=== PATIENT | female | born 1940 | race Caucasian/White ===

== ENCOUNTER → 2016-02-18 | Outpatient (CLI) | payer OTHER ==
[~2016-02-18] MED LIST: ACET325T96 PO; ATOR10TA88 PO; CHOL20005 PO; DONE5TAB14 PO; FLUO20CA34 PO; LORA-741 PO; METF500T PO; MIRT30TA3 PO; MRP15 PO; MULT-262 PO; TOPI100T45 PO; [UNRECOGNIZED DRUG - OTHER] PO
[2016-02-18 09:20] LABS: ESTIMATED AVERAGE GLUCOSE 120 mg/dl; HA1C FLAG Normal (Normal)
== END ==
LOC: C.LABUPBEA 08:42
PROVIDERS: ATTEND Family Medicine
DX: E11.9 Type 2 diabetes mellitus without complications (principal)

== ENCOUNTER → 2016-04-15 | Outpatient (CLI) | payer OTHER ==
[2016-04-15 10:17] LABS: CHOLESTEROL/HDL RATIO 2.6
== END | disposition home or self-care (01) ==
LOC: C.LABUPBEA 09:44
PROVIDERS: ATTEND Family Medicine
DX: E78.5 Hyperlipidemia, unspecified (principal)

== ENCOUNTER → 2016-04-16 | Outpatient (CLI) | payer OTHER ==
[2016-04-16 09:48] LABS: HEMATOCRIT 39.5 % (37-47); MEAN CORPUSCULAR HEMOGLOBIN 27.6 pg (25-34); MEAN CORPUSCULAR HGB CONC 31.4 g/dl (32-36); MEAN PLATELET VOLUME 10.2 fL (7.4-10.4); PLATELET COUNT 237 K/uL (130-400); RED BLOOD COUNT 4.49 M/uL (4.2-5.4); WHITE BLOOD COUNT 7.16 K/uL (4.8-10.8)
[2016-04-16 09:57] LABS: BLOOD UREA NITROGEN 14 mg/dl (7-18); CREATININE 0.76 mg/dl (0.60-1.20); GLUCOSE 113 mg/dl (70-99)
[2016-04-16 09:58] LABS: ALT/SGPT 16 U/L (12-78); BUN/CREATININE RATIO 18.4 (10-20); CALCIUM 8.7 mg/dl (8.5-10.1); CARBON DIOXIDE 23 mmol/L (21-32); CHLORIDE 104 mmol/L (98-107); CHOLESTEROL 107 mg/dl (0-200); POTASSIUM 3.3 mmol/L (3.5-5.1); SODIUM 142 mmol/L (136-145); TRIGLYCERIDES 150 mg/dl (0-150); VERY LOW DENSITY LIPOPROT CALC 30 mg/dl
[2016-04-16 10:01] LABS: ALKALINE PHOSPHATASE 111 U/L (45-117); AST/SGOT 11 U/L (15-37); CHOLESTEROL/HDL RATIO 2.5; HDL CHOLESTEROL 43 mg/dl; LDL CHOLESTEROL CALCULATED 34 mg/dl
== END ==
LOC: C.LABUPBEA 09:10
PROVIDERS: ATTEND Family Medicine
DX: E78.5 Hyperlipidemia, unspecified (principal)

== ENCOUNTER → 2016-05-20 | Outpatient (CLI) | payer OTHER ==
[~2016-05-20] MED LIST changes: +ATOR10TA82 PO; -ATOR10TA88 PO
[2016-05-20 11:00] LABS: ESTIMATED AVERAGE GLUCOSE 126 mg/dl; HA1C FLAG Normal (Normal)
== END ==
LOC: C.LABUPBEA 09:22
PROVIDERS: ATTEND Nurse Practitioner Family
DX: E11.9 Type 2 diabetes mellitus without complications (principal)

== ENCOUNTER → 2016-06-26 | Outpatient (CLI) | payer OTHER ==
[2016-06-26 09:13] LABS: BLOOD UREA NITROGEN 15 mg/dl (7-18); BUN/CREATININE RATIO 21.9 (10-20); CARBON DIOXIDE 27 mmol/L (21-32); CHLORIDE 103 mmol/L (98-107); CREATININE 0.68 mg/dl (0.60-1.20); GLUCOSE 95 mg/dl (70-99); POTASSIUM 3.8 mmol/L (3.5-5.1); SODIUM 139 mmol/L (136-145)
[2016-06-26 09:21] LABS: CALCIUM 8.9 mg/dl (8.5-10.1)
== END ==
LOC: C.LABUPBEA 08:56
PROVIDERS: ATTEND Nurse Practitioner Family
DX: E11.9 Type 2 diabetes mellitus without complications (principal)

== ENCOUNTER → 2016-08-20 | Outpatient (CLI) | payer OTHER ==
[~2016-08-20] MED LIST changes: -ATOR10TA82 PO; +ATOR10TA88 PO
[2016-08-20 09:55] LABS: ESTIMATED AVERAGE GLUCOSE 123 mg/dl; HA1C FLAG Normal (Normal)
--- NOTE | 2016-10-07 07:14 | CODING QUERY MEDICAL NECESSITY ---
SUPPORTING DIAGNOSIS NEEDED Dr. Bravo, A supporting diagnosis is required for the test/procedure performed on this patient in order for us to be reimbursed by the patient's insurance. Please provide a supporting diagnosis for the following test/procedure listed below next to the test name along with your signature. *If there is no additional diagnosis for this patient that would support the following test/procedure please document that below next to the test/procedure. Test(s)/Procedure(s) that require a supporting diagnosis: * ([id number]) VITAMIN D ASSAY DIAGNOSIS: DATE OF SERVICE: 08/20/16 Provider Signature: Date: Thank you Miguel Ángel Harmon [facility] Information Management Once completed, please kindly fax back to [phone] For questions please call [phone]
== END ==
LOC: C.LABUPBEA 04:45
PROVIDERS: ATTEND Family Medicine
DX: E11.9 Type 2 diabetes mellitus without complications (principal); M25.532 Pain in left wrist

== ENCOUNTER → 2016-11-20 | Outpatient (CLI) | payer OTHER | LOC: C.LABUPBEA 08:57 | PROVIDERS: ATTEND Nurse Practitioner Family | DX: E11.9 Type 2 diabetes mellitus without complications (principal); E55.9 Vitamin D deficiency, unspecified ==

== ENCOUNTER → 2016-12-11 | Outpatient (CLI) | payer OTHER ==
[~2016-12-11] MED LIST changes: +ATOR10TA82 PO; -ATOR10TA88 PO
[2016-12-11 15:36] LABS: BASO % 0.6 %; BASO ABS # 0.04 K/uL (0-0.2); HEMATOCRIT 39.1 % (37-47); IG% 0.1 %; LYMPH % 21.5 %; LYMPH ABS # 1.45 K/uL (1.2-3.4); MEAN CELL VOLUME 89.1 fL (80-100); MEAN CORPUSCULAR HEMOGLOBIN 29.2 pg (25-34); MEAN PLATELET VOLUME 9.8 fL (7.4-10.4); MONO % 11.3 %; NEUT % 61.5 %; PLATELET COUNT 255 K/uL (130-400); RED BLOOD COUNT 4.39 M/uL (4.2-5.4); WHITE BLOOD COUNT 6.75 K/uL (4.8-10.8)
[2016-12-11 15:57] LABS: BLOOD UREA NITROGEN 24 mg/dl (7-18); CREATININE 0.79 mg/dl (0.60-1.20); GLUCOSE 95 mg/dl (70-99)
[2016-12-11 15:58] LABS: ALB/GLOB RATIO 0.9 (0.9-2); ALKALINE PHOSPHATASE 118 U/L (45-117); ALT/SGPT 15 U/L (12-78); AST/SGOT 7 U/L (15-37); CALCIUM 8.8 mg/dl (8.5-10.1); CARBON DIOXIDE 25 mmol/L (21-32); CHLORIDE 104 mmol/L (98-107); POTASSIUM 3.9 mmol/L (3.5-5.1); SODIUM 137 mmol/L (136-145)
[2016-12-11 16:00] LABS: COMPLETE YES; MEAN CORPUSCULAR HGB CONC 32.7 g/dl (32-36)
== END | disposition home or self-care (01) ==
LOC: C.LABUPBEA 15:22
PROVIDERS: ATTEND Nurse Practitioner Family
DX: F03.90 Unspecified dementia, unspecified severity, without behavioral disturbance, psychotic disturbance, mood disturbance, and anxiety (principal); E11.9 Type 2 diabetes mellitus without complications; F41.9 Anxiety disorder, unspecified; F32.9 Major depressive disorder, single episode, unspecified; G43.909 Migraine, unspecified, not intractable, without status migrainosus; G89.29 Other chronic pain

== ENCOUNTER → 2016-12-26 | Outpatient (CLI) | payer OTHER ==
[2016-12-26 10:06] LABS: BLOOD UREA NITROGEN 23 mg/dl (7-18); BUN/CREATININE RATIO 26.7 (10-20); CALCIUM 8.3 mg/dl (8.5-10.1); CARBON DIOXIDE 25 mmol/L (21-32); CHLORIDE 103 mmol/L (98-107); CREATININE 0.88 mg/dl (0.60-1.20); GLUCOSE 124 mg/dl (70-99); POTASSIUM 3.6 mmol/L (3.5-5.1); SODIUM 135 mmol/L (136-145)
== END | disposition home or self-care (01) ==
LOC: C.LABUPBEA 09:16
PROVIDERS: ATTEND Nurse Practitioner Family
DX: F41.1 Generalized anxiety disorder (principal)

== ENCOUNTER → 2017-02-20 | Outpatient (CLI) | payer OTHER ==
[~2017-02-20] MED LIST changes: +ACET-1693 PO; -ACET325T96 PO
[2017-02-20 08:58] LABS: HEMOGLOBIN A1C 5.7 % (4.5-5.6)
== END ==
LOC: C.LABUPHEI 08:36
PROVIDERS: ATTEND Nurse Practitioner Family
DX: E11.9 Type 2 diabetes mellitus without complications (principal)

== ENCOUNTER → 2017-05-21 | Outpatient (CLI) | payer OTHER ==
[2017-05-21 09:55] LABS: HEMOGLOBIN A1C 5.9 % (4.5-5.6)
== END ==
LOC: C.LABUPHEI 07:51
PROVIDERS: ATTEND Nurse Practitioner Family
DX: E11.9 Type 2 diabetes mellitus without complications (principal)

== ENCOUNTER → 2017-06-25 | Outpatient (CLI) | payer OTHER ==
[2017-06-25 09:55] LABS: BLOOD UREA NITROGEN 19 mg/dl (7-18); CALCIUM 8.5 mg/dl (8.5-10.1); CARBON DIOXIDE 28 mmol/L (21-32); GLUCOSE 120 mg/dl (70-99); POTASSIUM 3.8 mmol/L (3.5-5.1); SODIUM 139 mmol/L (136-145)
== END ==
LOC: C.LABUPHEI 09:01
PROVIDERS: ATTEND Nurse Practitioner Family
DX: E11.9 Type 2 diabetes mellitus without complications (principal)

== ENCOUNTER → 2017-09-25 | Outpatient (CLI) | payer OTHER ==
[2017-09-25 09:00] LABS: BASO % 0.5 %; BASO ABS # 0.04 K/uL (0-0.2); EOS % 5.8 %; EOS ABS # 0.43 K/uL (0-0.5); HEMATOCRIT 42.3 % (37-47); HEMOGLOBIN 12.9 g/dL (12.0-16.0); IG# 0.02 K/uL (0.00-0.02); LYMPH % 21.8 %; LYMPH ABS # 1.62 K/uL (1.2-3.4); MEAN CELL VOLUME 87.8 fL (80-100); MEAN CORPUSCULAR HEMOGLOBIN 26.8 pg (25-34); MEAN CORPUSCULAR HGB CONC 30.5 g/dl (32-36); MEAN PLATELET VOLUME 10.6 fL (7.4-10.4); MONO % 11.9 %; MONO ABS # 0.88 K/uL (0.11-0.59); NEUT % 59.7 %; NEUT ABS # 4.43 K/uL (1.4-6.5); PLATELET COUNT 236 K/uL (130-400); RED CELL DISTRIBUTION WIDTH CV 15.6 % (11.5-14.5); RED CELL DISTRIBUTION WIDTH SD 49.9 fL (36.4-46.3); WHITE BLOOD COUNT 7.42 K/uL (4.8-10.8)
== END ==
LOC: C.LABUPHEI 08:34
PROVIDERS: ATTEND Nurse Practitioner Family
DX: R30.0 Dysuria (principal); E11.9 Type 2 diabetes mellitus without complications

== ENCOUNTER 2023-11-24 23:46 | Inpatient (IN) ==
--- NOTE | 2023-11-25 00:02 | Emergency Department Note ---
Impression & Plan Acute hypoxic respiratory failure, Multifocal pneumonia ED Provider Note NAME: LUCA GARCIA AGE: 83 SEX: F : 1940 ARRIVES VIA: Ambulance INFORMANT: Patient, EMS ED PROVIDER(S): Austyn Harris DO CHIEF COMPLAINT: Respiratory distress HPI: Patient is an 83-year-old female with a past medical history of aggressive behavior, psychosis, mood disorder and UTI who presents to the ER for respiratory distress. Per [facility] [place] side she has been having trouble breathing all day. Gradually getting worse. She cannot talk now. She is pleasantly demented. She notes she is a full code. Unable to obtain a history due to respiratory distress ADDITIONAL HISTORY OBTAINED: Per HPI Chronic Medical/Social Conditions Affecting Care: Per HPI PAST MEDICAL HISTORY:See Below PAST SURGICAL HISTORY:See Below FAMILY HISTORY:See Below SOCIAL HISTORY:See Below HOME MEDICATIONS:See Below ALLERGIES:See Below VITALS:See Below PHYSICAL EXAMINATION: GENERAL: Sitting up in bed, alert, tachypneic, unable to talk, on nonrebreather EYE EXAM: normal conjunctiva. OROPHARYNX: Dry mucous membranes NECK: supple, no nuchal rigidity, no adenopathy, non-tender LUNGS: Wheezing bilaterally. Normal chest wall mechanics HEART: no murmurs, S1 normal and S2 normal ABDOMEN: abdomen soft, non-tender, normo-active bowel sounds, no masses, no rebound or guarding. UPPER EXTREMITIES: upper extremities are grossly normal. LOWER EXTREMITIES: No pitting edema. Calves are equal bilaterally NEURO EXAM: Awake alert moving extremities nonfocal MEDICAL DECISION MAKING: Patient is an 83-year-old female who presents ER for the above-stated complaint. IV was established medicos obtained. Upon presentation she was found to be tachypneic and unable to talk using accessory muscles including neck and belly. She was transitioned from nonrebreather to BiPAP with little improvement and consequently the decision was made to intubate after I spoke with Viridiana from [facility] who notes that the patient is a full code. Initially patient was given Rocephin and this was upgraded to cefepime once the chest x-ray was obtained and showed multifocal pneumonia as patient is from [facility] side. Patient was also given vancomycin. Patient was intubated at bedside by myself using a 7 and half ET tube and glide scope. Placed on a propofol drip. Pressures dropped and propofol drip was decreased and pressures rebounded. This occurred several times. Patient was given IV fluids. Updated bedside. Discussed with the pc support specialist Joan and the hospitalist Dr. Jayro Brennan for further evaluation management treatment. Consults/Care Managements Discussions: Per [facility] Triage Nursing notes reviewed. Limited review of prior medical records performed Vital Signs: reviewed and remarkable for no significant abnormalities Differential diagnosis: Differential diagnoses includes but is not limited to pneumonia, bronchitis, COPD/Asthma exacerbation, pneumothorax, pulmonary embolism, congestive heart failure, acute coronary syndrome ER treatment provided: See below Diagnostics interpreted by me include EKG and cardiac monitoring as listed below: -Cardiac Monitoring: An order was placed for continuous cardiac monitoring. The monitor shows a rate of 110 with sinus rhythm. -ECG: Sinus tachycardia rate of 113 Normal axis Right bundle branch block T wave inversions in the septal leads QTc 496 -Laboratory studies:Interpreted by me as stated above in MDM and shown below. Imaging studies: Xrays: As interpreted by me: Portable AP upright 1 view of the chest shows ET tube in good positioning and multifocal pneumonia CTs show: none Procedures:EM PROCEDURE NOTE - Endotracheal Intubation PROCEDURE NOTE: Informed consent was not obtained by the patient. Verify Correct Patient: yes Procedure: Endotracheal intubation Indication: Respiratory failure The procedure was done emergently. Description of the Procedure: The patient was seen and properly identified. The patient was pre-oxygenated and intubated after rapid sequence induction with meds: Succinylcholine and ketamine. Intubation was performed using a glide scope 3.5 and a 7.5 cuffed endotracheal tube. The tube was visualized going through the cords and secured with the 23 cm rober at the lips. The patient had good bilateral breath sounds in the axillae with good chest rise. Proper ET tube placement was confirmed by end tidal CO2 detector. The patient tolerated the procedure well. Critical Care: I have personally spent 125 minutes of critical care time in the direct management of this patient. This includes bedside care, interpretation of diagnostic studies, and testing, discussion with consultants, patient, and family members, and other required patient management activities. This 125 minutes is in excess of all separately billable procedures. Past Med/Surg History Problem List (Updated 11/25/23 @ 01:51 by Austyn Harris DO) Multifocal pneumonia (Acute) Acute hypoxic respiratory failure (Acute) Aggressive behavior (Acute) History of psychosis (Acute) Mood disorder (Acute) UTI (urinary tract infection) (Acute) Social History Smoking Status: Unknown if ever smoked Allergies Allergies Allergy/AdvReac Type Severity Reaction Status Date / Time thimerosal Allergy Unknown unknown Verified 11/25/23 00:06 Home Meds Home Medications Medication Instructions Recorded Confirmed acetaminophen 325 mg tablet 325 mg PO Q6 PRN PAIN 1-10 11/25/23 11/25/23 aripiprazole 2 mg tablet 2 mg PO HS 11/25/23 11/25/23 atorvastatin 10 mg tablet 10 mg PO HS 11/25/23 11/25/23 diclofenac sodium 1 % topical gel 1 g topical .DAY & EVENING SHIFT 11/25/23 11/25/23 divalproex 125 mg capsule,delayed 125 mg PO DAILY 11/25/23 11/25/23 release sprinkle menthol 0.1 % lotion (Eucerin Itch 1 ea topical BID 11/25/23 11/25/23 Relief) mirtazapine 15 mg tablet 15 mg PO HS 11/25/23 11/25/23 morphine 15 mg tablet,extended 15 mg PO BID 11/25/23 11/25/23 release multivitamin with minerals 1 tab PO DAILY 11/25/23 11/25/23 (Multiple Vitamin-Minerals tablet) naproxen sodium 220 mg tablet 220 mg PO BID PRN L SHOULDER PAIN 11/25/23 11/25/23 naproxen sodium 220 mg tablet 220 mg PO UD PRN OTHER PAIN 11/25/23 11/25/23 venlafaxine 75 mg capsule,extended 75 mg PO BID 11/25/23 11/25/23 release 24 hr Results & Data (ED) Vital Signs Vital Signs - 24 hr 11/24/23 23:51 11/24/23 23:54 11/24/23 23:56 Pulse Rate 113 H 111 H Pulse Rate from SpO2 Sensor 112 H Respiratory Rate 25 H Respiratory Effort / Characteristics Accessory Muscle Use Gasping/Agonal SOB on Exertion Respiratory Pattern Gasping Rapid/Deep Blood Pressure 174/108 H Blood Pressure Mean 130 Blood Pressure Position Pulse Oximetry 99 Oxygen Delivery Method Sepsis Recent Fever Within 48 Hours Sepsis New/Unexplained Change in Mental Status Sepsis Action Taken by Nursing End-Tidal CO2 11/24/23 23:56 11/25/23 00:02 11/25/23 00:18 Pulse Rate 115 H 117 H Pulse Rate from SpO2 Sensor 117 H Respiratory Rate 30 H Respiratory Effort / Characteristics Accessory Muscle Use Gasping/Agonal SOB on Exertion Respiratory Pattern Tachypnea Blood Pressure 174/108 H 118/83 Blood Pressure Mean 130 94 Blood Pressure Position Lying Pulse Oximetry 97 97 97 Oxygen Delivery Method BiPAP BiPAP Sepsis Recent Fever Within 48 Hours No Sepsis New/Unexplained Change in Mental Status N/A Sepsis Action Taken by Nursing Physician Notified End-Tidal CO2 11/25/23 00:24 11/25/23 00:30 11/25/23 00:36 Pulse Rate 90 Pulse Rate from SpO2 Sensor 91 H Respiratory Rate 24 Respiratory Effort / Characteristics Respiratory Pattern Blood Pressure 118/83 171/93 H 143/73 H Blood Pressure Mean 96 120 96 Blood Pressure Position Pulse Oximetry 96 Oxygen Delivery Method Sepsis Recent Fever Within 48 Hours Sepsis New/Unexplained Change in Mental Status Sepsis Action Taken by Nursing End-Tidal CO2 36 11/25/23 00:44 11/25/23 00:45 11/25/23 00:47 Pulse Rate 92 H 94 H 90 Pulse Rate from SpO2 Sensor 95 H Respiratory Rate 19 Respiratory Effort / Characteristics Respiratory Pattern Blood Pressure 72/46 L 72/46 L 105/57 L Blood Pressure Mean 52 54 82 Blood Pressure Position Pulse Oximetry 95 92 Oxygen Delivery Method Mechanical Vent Mechanical Vent Sepsis Recent Fever Within 48 Hours Sepsis New/Unexplained Change in Mental Status Sepsis Action Taken by Nursing End-Tidal CO2 37 33 11/25/23 00:50 11/25/23 01:00 Pulse Rate 90 Pulse Rate from SpO2 Sensor 89 Respiratory Rate 24 Respiratory Effort / Characteristics Respiratory Pattern Blood Pressure 106/54 L 90/61 L Blood Pressure Mean 72 70 Blood Pressure Position Pulse Oximetry 95 Oxygen Delivery Method Mechanical Vent Sepsis Recent Fever Within 48 Hours Sepsis New/Unexplained Change in Mental Status Sepsis Action Taken by Nursing End-Tidal CO2 37 Laboratory Data 11/25/23 00:16 11/25/23 00:16 Lab Results 11/25/23 11/25/23 11/25/23 Range/Units 00:16 00:19 00:23 WBC 30.21 H* (4.8-10.8) K/ul RBC 4.62 (4.20-5.40) M/uL Hgb 12.8 (12.0-16.0) g/dl POC Hgb 15.3 (12.0-16.0) g/dl Hct 41.5 (37.0-47.0) % POC Hct 45 (37-47) % MCV 89.8 (80.0-100.0) fL MCH 27.7 (25.0-34.0) pg MCHC 30.8 L (32.0-36.0) g/dL RDW Std Deviation 50.2 H (36.4-46.3) fL RDW Coeff of Louise 15.0 H (11.5-14.5) % Plt Count 342 (130-400) K/uL MPV 10.5 (9.4-12.4) fL Immature Gran % (Auto) 0.7 % Neut % (Auto) 71.0 % Lymph % (Auto) 16.9 % [place] % (Auto) 10.8 % Eos % (Auto) 0.3 % Baso % (Auto) 0.3 % Neut # (Auto) 21.48 H (1.40-6.50) K/uL Lymph # (Auto) 5.10 H (1.20-3.40) K/uL [place] # (Auto) 3.26 H (0.11-0.59) K/uL Eos # (Auto) 0.08 (0.00-0.50) K/uL Baso # (Auto) 0.08 (0.00-0.20) K/uL Immature Gran # (Auto) 0.21 H (0.01-0.20) K/uL Echinocytes 1+ POC pH (7.35-7.45) POC pCO2 (35-46) mmHg POC pO2 (80-95) mmHg POC HCO3 (19-24) jameel/L POC Base Excess (-9-1.8) jameel/L POC ABG O2 Sat (90-95) % VBG pH 7.23 L (7.36-7.41) VBG pCO2 73 H (38-50) mmHg VBG pO2 51 mmHg VBG HCO3 31 mmol/L VBG O2 Saturation 81.3 % VBG Base Excess 1.0 mEq/L POC Sodium 136 (135-144) mmol/L Sodium 136 (136-145) mmol/L POC Potassium 4.4 (3.3-5.0) mmol/L Potassium 4.3 (3.5-5.1) mmol/L POC Chloride 98 L (101-112) mmol/L Chloride 97 L (98-107) mmol/L Carbon Dioxide 30 (21-32) mmol/L POC Total CO2 31 (24-31) mmol/L Anion Gap 9 (3-11) POC Anion Gap 12.0 L (16-25) mmol/L POC BUN 23 H (7-18) mg/dl BUN 19 (6-23) mg/dl Creatinine 0.59 L (0.6-1.2) mg/dl POC Creatinine 0.6 (0.6-1.3) mg/dl Est Cr Clr Drug Dosing 78.3 ml/min eGFR 89.37 BUN/Creatinine Ratio 32.2 H (10-20) Glucose 181 H (70-99(Fasting)) mg/dl POC Glucose (other) 189 H (70-99) mg/dl Lactate 1.5 (0.4-2.0) mmol/L Calcium 9.7 (8.6-10.3) mg/dl POC Ioniz Calcium Maisah 1.17 (1.12-1.32) mmol/l Total Bilirubin 0.8 (0.2-1.0) mg/dl AST 21 (13-39) U/L ALT 18 (7-52) U/L Alkaline Phosphatase 132 H (34-104) U/L Troponin I High Sens 34.1 H (0-14) pg/ml Total Protein 8.0 (6.0-8.3) gm/dl Albumin 3.9 (3.4-5.0) gm/dl Globulin 4.1 H (2.5-4.0) gm/dl Albumin/Globulin Ratio 1.0 (0.9-2) Lipase 10 L (11-82) U/L Procalcitonin 0.11 (0-0.5) ng/ml Adenovirus (PCR) Not Detected (NotDetected) B. pertussis DNA (PCR) Not Detected (NotDetected) B.parapertussis DNA PCR Not Detected (NotDetected) C. pneumoniae DNA (PCR) Not Detected (NotDetected) Coronavirus OC43 (PCR) Not Detected (NotDetected) Coronavirus HKU1 (PCR) Not Detected (NotDetected) Coronavirus 229E (PCR) Not Detected (NotDetected) SARS-CoV-2 (PCR) Not Detected (NotDetected) Coronavirus NL63 (PCR) Not Detected (NotDetected) Human Metapneumovir PCR Not Detected (NotDetected) Influenza Type A (PCR) Not Detected (NotDetected) Influenza Type B (PCR) Not Detected (NotDetected) M. pneumoniae (PCR) Not Detected (NotDetected) Parainfluenza 1 (PCR) Not Detected (NotDetected) Parainfluenza 2 (PCR) Not Detected (NotDetected) Parainfluenza 3 (PCR) Not Detected (NotDetected) Parainfluenza 4 (PCR) Not Detected (NotDetected) RSV (PCR) Not Detected (NotDetected) Entero/Rhino (PCR) Not Detected (NotDetected) 11/25/23 Range/Units 00:58 WBC (4.8-10.8) K/ul RBC (4.20-5.40) M/uL Hgb (12.0-16.0) g/dl POC Hgb 12.6 (12.0-16.0) g/dl Hct (37.0-47.0) % POC Hct 37 (37-47) % MCV (80.0-100.0) fL MCH (25.0-34.0) pg MCHC (32.0-36.0) g/dL RDW Std Deviation (36.4-46.3) fL RDW Coeff of Louise (11.5-14.5) % Plt Count (130-400) K/uL MPV (9.4-12.4) fL Immature Gran % (Auto) % Neut % (Auto) % Lymph % (Auto) % [place] % (Auto) % Eos % (Auto) % Baso % (Auto) % Neut # (Auto) (1.40-6.50) K/uL Lymph # (Auto) (1.20-3.40) K/uL [place] # (Auto) (0.11-0.59) K/uL Eos # (Auto) (0.00-0.50) K/uL Baso # (Auto) (0.00-0.20) K/uL Immature Gran # (Auto) (0.01-0.20) K/uL Echinocytes POC pH 7.36 (7.35-7.45) POC pCO2 45 (35-46) mmHg POC pO2 71 L (80-95) mmHg POC HCO3 25 H (19-24) jameel/L POC Base Excess 0.0 (-9-1.8) jameel/L POC ABG O2 Sat 93.0 (90-95) % VBG pH (7.36-7.41) VBG pCO2 (38-50) mmHg VBG pO2 mmHg VBG HCO3 mmol/L VBG O2 Saturation % VBG Base Excess mEq/L POC Sodium 136 (135-144) mmol/L Sodium (136-145) mmol/L POC Potassium 4.5 (3.3-5.0) mmol/L Potassium (3.5-5.1) mmol/L POC Chloride (101-112) mmol/L Chloride (98-107) mmol/L Carbon Dioxide (21-32) mmol/L POC Total CO2 27 (24-31) mmol/L Anion Gap (3-11) POC Anion Gap (16-25) mmol/L POC BUN (7-18) mg/dl BUN (6-23) mg/dl Creatinine (0.6-1.2) mg/dl POC Creatinine (0.6-1.3) mg/dl Est Cr Clr Drug Dosing ml/min eGFR BUN/Creatinine Ratio (10-20) Glucose (70-99(Fasting)) mg/dl POC Glucose (other) (70-99) mg/dl Lactate (0.4-2.0) mmol/L Calcium (8.6-10.3) mg/dl POC Ioniz Calcium Maisha (1.12-1.32) mmol/l Total Bilirubin (0.2-1.0) mg/dl AST (13-39) U/L ALT (7-52) U/L Alkaline Phosphatase (34-104) U/L Troponin I High Sens (0-14) pg/ml Total Protein (6.0-8.3) gm/dl Albumin (3.4-5.0) gm/dl Globulin (2.5-4.0) gm/dl Albumin/Globulin Ratio (0.9-2) Lipase (11-82) U/L Procalcitonin (0-0.5) ng/ml Adenovirus (PCR) (NotDetected) B. pertussis DNA (PCR) (NotDetected) B.parapertussis DNA PCR (NotDetected) C. pneumoniae DNA (PCR) (NotDetected) Coronavirus OC43 (PCR) (NotDetected) Coronavirus HKU1 (PCR) (NotDetected) Coronavirus 229E (PCR) (NotDetected) SARS-CoV-2 (PCR) (NotDetected) Coronavirus NL63 (PCR) (NotDetected) Human Metapneumovir PCR (NotDetected) Influenza Type A (PCR) (NotDetected) Influenza Type B (PCR) (NotDetected) M. pneumoniae (PCR) (NotDetected) Parainfluenza 1 (PCR) (NotDetected) Parainfluenza 2 (PCR) (NotDetected) Parainfluenza 3 (PCR) (NotDetected) Parainfluenza 4 (PCR) (NotDetected) RSV (PCR) (NotDetected) Entero/Rhino (PCR) (NotDetected) Administered Medications Propofol (Diprivan) 1,000 mg in 100 mls @ 7.999 mls/hr IV .[id number] [facility]; Protocol Stop: 11/28/23 00:14 Last Titration: 11/25/23 01:08 Dose: 16.14 mcg/kg/min, 8 mls/hr Documented By: Titration: 11/25/23 00:49 Dose: 10.09 mcg/kg/min, 5 mls/hr Documented By: Titration: 11/25/23 00:47 Dose: 10.09 mcg/kg/min, 5 mls/hr Documented By: Admin: 11/25/23 00:33 Dose: 20 mcg/kg/min, 9.9 mls/hr Documented By: CED Co-signed By: NELLIE Norepinephrine Bitartrate (Levophed/D5w) 4 mg in 250 mls @ 15.488 mls/hr IV .Q16H9M [facility]; Protocol Stop: 12/25/23 01:29 Last Titration: 11/25/23 01:37 Dose: 0.07 mcg/kg/min, 21.7 mls/hr Documented By: Admin: 11/25/23 01:21 Dose: 0.05 mcg/kg/min, 15.5 mls/hr Documented By: CED Co-signed By: MONIKA Propofol (Propofol Bolus From Bag) 20 mg IV Q5M PRN PRN Reason: Sedation Stop: 11/28/23 00:01 Last Admin: 11/25/23 00:39 Dose: 20 mg Documented By: CED Co-signed By: CANELO Discontinued Medications Albuterol (Albut/Ipratrop 3mg/0.5mg Neb 3 Ml Vial) 12 ml NEB ONE ONE; Protocol Stop: 11/24/23 23:53 Last Admin: 11/25/23 01:29 Dose: Not Given Documented By: CED Sodium Chloride (Nss) 1,000 mls @ 999 mls/hr IV .Q1H1M ONE Stop: 11/25/23 00:51 Last Admin: 11/25/23 00:31 Dose: 999 mls/hr Documented By: CED Ceftriaxone Sodium (Rocephin) 2,000 mg in 50 mls @ 100 mls/hr IV NOW STA Stop: 11/25/23 00:20 Last Admin: 11/25/23 00:58 Dose: 100 mls/hr Documented By: CED Cefepime HCl (Maxipime 2000mg) 2,000 mg in 20 mls @ 5 mls/min IV NOW STA; Protocol Stop: 11/25/23 01:07 Last Admin: 11/25/23 01:31 Dose: Not Given Documented By: CED Piperacillin Sod/Tazobactam Sod (Zosyn) 4.5 gm in 100 mls @ 200 mls/hr IV NOW STA Stop: 11/25/23 01:41 Last Admin: 11/25/23 01:26 Dose: 200 mls/hr Documented By: CED Methylprednisolone (Methylprednisolone 125 Mg/2 Ml Vial) 80 mg IV NOW STA Stop: 11/24/23 23:53 Last Admin: 11/25/23 00:48 Dose: 80 mg Documented By: CED Miscellaneous (Rapid Sequence Induction Bag) Confirm Administered Dose 1 each N/A .STK-MED ONE Stop: 11/24/23 23:55 Last Admin: 11/25/23 00:58 Dose: 1 each Documented By: KMF Miscellaneous (Stat Iv Infusion Titration Per Protocol) 1 each N/A NOW STA Stop: 11/25/23 00:03 Last Admin: 11/25/23 01:04 Dose: Not Given Documented By: CED Propofol (Propofol Iv Emulsion 10 Mg/Ml 100 Ml Vial) Confirm Administered Dose 1,000 mg IV .STK-MED ONE Stop: 11/25/23 00:13 Last Admin: 11/25/23 00:55 Dose: Not Given Documented By: CED Succinylcholine Chloride (Succinylcholine Chloride 20 Mg/Ml 10 Ml Vial) 160 mg IV NOW STA Stop: 11/25/23 01:31 Last Admin: 11/25/23 00:27 Dose: 160 mg Documented By: CED Co-signed By: MELISA Discharge Plan Visit Data Chief Complaint: Shortness of Breath/Dyspnea Stated Complaint: SOB, PANICKY, AGITATED, GASPING FOR AIR ED Provider: Austyn Harris Discharge Problem: Acute hypoxic respiratory failure, Multifocal pneumonia Forms Stand Alone Forms: [facility] Prescriptions Prescriptions: No Action venlafaxine 75 mg capsule,extended release 24hr 75 mg PO BID morphine 15 mg tablet extended release 15 mg PO BID mirtazapine 15 mg tablet 15 mg PO HS diclofenac sodium 1 % gel 1 g TOPICAL .DAY & EVENING SHIFT Rx Instructions: APPLY TO LEFT SHOULDER atorvastatin 10 mg tablet 10 mg PO HS divalproex 125 mg capsule, delayed rel sprinkle 125 mg PO DAILY aripiprazole 2 mg tablet 2 mg PO HS acetaminophen 325 mg Tablet 325 mg PO Q6 MDD 3G/24 HR PRN (Reason: PAIN 1-10) naproxen sodium 220 mg Tablet 220 mg PO UD PRN (Reason: OTHER PAIN) naproxen sodium 220 mg Tablet 220 mg PO BID PRN (Reason: L SHOULDER PAIN) Multiple Vitamin-Minerals Tablet 1 tab PO DAILY Eucerin Itch Relief 0.1 % Lotion 1 ea TOPICAL BID Rx Instructions: APPLY TO ITCHY AREAS EVERY DAY AND EVENING SHIFT Referrals Referrals: Jonnathan Cardozo [Primary Care Provider] -
[2023-11-25] MEDS: SUCCINYLCHOLINE CHLORIDE 20 MG/ML 10 ML VIAL IV STA (00:27)
[2023-11-25 00:28] LABS: HCO3 VBG 31 mmol/L; Oxygen Saturation VBG 81.3 %; PCO2 VBG 73 mmHg (38-50); PO2 VBG 51 mmHg; pH VBG 7.23 (7.36-7.41)
[2023-11-25] MEDS: SODIUM CHLORIDE 0.9% 1,000 ML IV ONE (00:31)
[2023-11-25] MEDS: propofoL 1,000 MG/100 ML VIAL IV SCH (00:33)
[2023-11-25 00:37] LABS: iSTAT Creatinine 0.6 mg/dl (0.6-1.3); iSTAT Hemoglobin 15.3 g/dl (12.0-16.0); iSTAT Ionized Calcium 1.17 mmol/l (1.12-1.32); iSTAT Potassium 4.4 mmol/L (3.3-5.0)
[2023-11-25] MEDS ORDERED: VANCOMYCIN CONSULT ACTIVE PRN (00:37)
[2023-11-25] MEDS: PROPOFOL BOLUS FROM BAG IV PRN (00:39)
[2023-11-25] MEDS: methylPREDNISolone 125 MG/2 ML VIAL IV STA (00:48)
[2023-11-25 00:51] LABS: Albumin Level 3.9 gm/dl (3.4-5.0); BUN Creatinine Ratio 32.2 (10-20); Bilirubin,Total 0.8 mg/dl (0.2-1.0); Calcium 9.7 mg/dl (8.6-10.3); Creatinine Clr Calc Pharmacy 78.3 ml/min; Globulin 4.1 gm/dl (2.5-4.0); Potassium 4.3 mmol/L (3.5-5.1)
[2023-11-25] MEDS: PROPOFOL IV EMULSION 10 MG/ML 100 ML VIAL IV ONE (00:55)
[2023-11-25 00:56] LABS: Hematocrit (blood only) 41.5 % (37.0-47.0); Hemoglobin 12.8 g/dl (12.0-16.0); Mean Corpuscular Hemoglobin 27.7 pg (25.0-34.0); Mean Corpuscular Hgb Conc 30.8 g/dL (32.0-36.0); Mean Corpuscular Volume 89.8 fL (80.0-100.0); Mean Platelet Volume 10.5 fL (9.4-12.4); Platelet Count 342 K/uL (130-400); RDW Standard Deviation 50.2 fL (36.4-46.3); Red Blood Count 4.62 M/uL (4.20-5.40); White Blood Count 30.21 K/ul (4.8-10.8)
[2023-11-25 00:58] LABS: Troponin I High Sensitivity 34.1 pg/ml (0-14)
[2023-11-25] MEDS: RAPID SEQUENCE INDUCTION BAG ONE (00:58)
[2023-11-25] MEDS: cefTRIAXone SODIUM 2,000 MG/50 ML BAG IV STA (00:58)
[2023-11-25] MEDS: STAT IV Infusion **Titration per Protocol STA ×2 (01:04→07:01)
[2023-11-25 01:09] LABS: Basophils # (auto) 0.08 K/uL (0.00-0.20); Basophils % (auto) 0.3 %; Echinocytes 1+; Eosinophils # (auto) 0.08 K/uL (0.00-0.50); Eosinophils % (auto) 0.3 %; Immature Granulocytes # (auto) 0.21 K/uL (0.01-0.20); Immature Granulocytes % (auto) 0.7 %; Lymphocytes % (auto) 16.9 %; Monocytes # (auto) 3.26 K/uL (0.11-0.59); Monocytes % (auto) 10.8 %; Neutrophils # (auto) 21.48 K/uL (1.40-6.50)
[2023-11-25 01:13] LABS: iSTAT Arterial Blood Gas HCO3 25 meg/L (19-24); iSTAT Arterial Blood Gas pCO2 45 mmHg (35-46); iSTAT Arterial Blood Gas pH 7.36 (7.35-7.45); iSTAT Arterial Blood Gas pO2 71 mmHg (80-95); iSTAT Carbon Dioxide 27 mmol/L (24-31); iSTAT Hematocrit 37 % (37-47); iSTAT Hemoglobin 12.6 g/dl (12.0-16.0); iSTAT Potassium 4.5 mmol/L (3.3-5.0); iSTAT Sodium 136 mmol/L (135-144)
[2023-11-25] MEDS: NOREPINEPHRINE/D5W 4 MG/250 ML PLCT IV SCH (01:21)
[2023-11-25 01:24] LABS: Adenovirus PCR Not Detected (NotDetected); Bordetella parapertussis PCR Not Detected (NotDetected); Bordetella pertussis PCR Not Detected (NotDetected); Chlamydia pneumoniae PCR Not Detected (NotDetected); Coronavirus 229E PCR Not Detected (NotDetected); Coronavirus CoV-2 (COVID19)PCR Not Detected (NotDetected); Coronavirus HKU1 PCR Not Detected (NotDetected); Coronavirus NL63 PCR Not Detected (NotDetected); Coronavirus OC43PCR Not Detected (NotDetected); Human Metapneumovirus PCR Not Detected (NotDetected); Influenza A PCR Not Detected (NotDetected); Influenza B PCR Not Detected (NotDetected); Mycoplasma pneumoniae PCR Not Detected (NotDetected); Parainfluenza Virus 1 PCR Not Detected (NotDetected); Parainfluenza Virus 2 PCR Not Detected (NotDetected); Parainfluenza Virus 3 PCR Not Detected (NotDetected); Parainfluenza Virus 4 PCR Not Detected (NotDetected); Respiratory Syncytial VirusPCR Not Detected (NotDetected); Rhinovirus/Enterovirus PCR Not Detected (NotDetected)
[2023-11-25] MEDS: PIPERACILLIN/TAZOBACTAM 4.5 GM/100 ML BAG IV STA (01:26)
[2023-11-25] MEDS: ALBUT/IPRATROP 3MG/0.5MG NEB 3 ML VIAL NEB ONE (01:29)
[2023-11-25] MEDS: CEFEPIME 2000MG 2,000 MG/20 ML SYR IV STA (01:31)
[2023-11-25] MEDS: fentaNYL citrate PF 100 MCG/2 ML VIAL IV STA (01:46)
[2023-11-25] MEDS: fentaNYL citrate PF 100 MCG/2 ML VIAL ONE (01:51)
[2023-11-25] MEDS ORDERED: STAT IV Infusion **Titration per Protocol STA ×2 (02:18→23:29)
[2023-11-25 02:28] LABS: Appearance Urine Turbid (Clear); Bacteria Urine Automated 4+ (None Seen); Bilirubin Urine Negative (Negative); Blood Urine 2+ (Negative); Cast Urine Automated >20 /lpf (0-2); Color Urine Dark Yellow; Glucose Urine UA Negative (Negative); Hyaline Casts Urine Present /lpf (None Presnt); Ketones Urine Negative (Negative); Leukocyte Esterase Urine 2+ (Negative); Mucus Urine Present (None Prsent); Nitrite Urine Positive (Negative); Protein Urine 2+ (Negative); Specific Gravity Urine 1.021 (1.000-1.030); Urobilinogen Urine Negative (Negative); WBC Urine Automated >50 /hpf (0-5); pH Urine 5.5 (4.5-7.5)
[2023-11-25] MEDS ORDERED: ONDANSETRON INJ 2 MG/ML 2 ML VIAL IV PRN (02:53)
[2023-11-25] MEDS: VANCOMYCIN HCL 1,750 MG in SODIUM CHLORIDE 0.9% 500 ML IV ONE (03:00)
[2023-11-25] MEDS: fentaNYL citrate 2,500 MCG/250 ML BAG IV SCH (03:43)
[2023-11-25 04:01] LABS: Hematocrit (blood only) 43.2 % (37.0-47.0); Hemoglobin 13.5 g/dl (12.0-16.0); Mean Corpuscular Hemoglobin 27.6 pg (25.0-34.0); Mean Corpuscular Hgb Conc 31.3 g/dL (32.0-36.0); Mean Corpuscular Volume 88.3 fL (80.0-100.0); Mean Platelet Volume 10.4 fL (9.4-12.4); Platelet Count 257 K/uL (130-400); RDW Coefficient of Variation 14.9 % (11.5-14.5); RDW Standard Deviation 48.3 fL (36.4-46.3); Red Blood Count 4.89 M/uL (4.20-5.40); White Blood Count 22.78 K/ul (4.8-10.8)
[2023-11-25 04:05] LABS: Basophils # (auto) 0.03 K/uL (0.00-0.20); Basophils % (auto) 0.1 %; Immature Granulocytes # (auto) 0.18 K/uL (0.01-0.20); Immature Granulocytes % (auto) 0.8 %; Lymphocytes # (auto) 1.26 K/uL (1.20-3.40); Lymphocytes % (auto) 5.6 %; Monocytes # (auto) 1.12 K/uL (0.11-0.59); Neutrophils # (auto) 19.87 K/uL (1.40-6.50); Neutrophils % (auto) 88.5 %
--- NOTE | 2023-11-25 04:11 | Billing Data ---
Date of Service November 25, 2023 Coding Level of Care Code 52680 CRITICAL CARE
--- NOTE | 2023-11-25 04:11 | History & Physical Report ---
Date of Service November 25, 2023 Assessment & Plan (1) Acute hypoxic respiratory failure: (2) Multifocal pneumonia: (3) UTI (urinary tract infection): (4) History of psychosis: (5) Aggressive behavior: (6) Mood disorder: (7) Hyperlipidemia: Plan Acute respiratory failure with hypoxia/multifocal pneumonia- Admit to ICU, with consult to stallion keeper Dr. Gunn NPO Intubated in the ED, and presently on ventilator Propofol IV per protocol Zosyn 4.5 g IV every 8 hours Vancomycin IV per pharmacokinetic monitoring Status post DuoNeb 12 mL DuoNebs every 2 hours as needed Sputum Gram stain and culture Status post Solu-Medrol 80 mg IV from the ED Status post 1 L normal saline bolus in the ED Levophed IV per protocol as needed for hypotension Pantoprazole 40 mg IV daily Acetaminophen 1 g IV every 8 hours as needed for mild pain or fever Zofran 4 mg IV every 6 hours as needed Further fluid management by the ICU Urinary tract infection- Follow urine culture sensitivity Antibiotics IV as noted above IV fluids as above History of psychosis/mood disorder/aggressive behavior- Hold aripiprazole, divalproex, mirtazapine, morphine, and venlafaxine, until extubated and taking p.o. Hyperlipidemia- Hold atorvastatin until extubated and taking p.o. Admission and Anticipated Discharge Date Admission Date: November 25, 2023 History of Present Illness Chief Complaint: The patient present to the emergency department with report from correction at [facility] that she has been having trouble breathing all day, which is and has been gradually getting worse. She is so short of breath that she cannot talk. She she relatively quickly worsened while in the ED, and was intubated by Dr. Harris. Primary Care Provider: [facility] The patient is an 83-year-old female resident of [facility] with a past medical history including behavior, history of psychosis, mood disorder, history of UTI, hyperlipidemia, chronic pain syndrome. She presents to the emergency department with history provided by correction staff has had shortness of breath that began earlier in the day, and worsened as the day progressed. Due to progressive worsening, patient was intubated in the emergency department by Dr. Harris, and will be admitted to the ICU for ongoing care. Allergies Allergy/AdvReac Type Severity Reaction Status Date / Time thimerosal Allergy Unknown unknown Verified 11/25/23 00:06 Home Medications Medication Instructions Recorded Confirmed Type acetaminophen 325 mg tablet 325 mg PO Q6 PRN PAIN 1-10 11/25/23 11/25/23 History aripiprazole 2 mg tablet 2 mg PO HS 11/25/23 11/25/23 History atorvastatin 10 mg tablet 10 mg PO HS 11/25/23 11/25/23 History diclofenac sodium 1 % topical gel 1 g topical .DAY & EVENING SHIFT 11/25/23 11/25/23 History divalproex 125 mg capsule,delayed 125 mg PO DAILY 11/25/23 11/25/23 History release sprinkle menthol 0.1 % lotion (Eucerin Itch 1 ea topical BID 11/25/23 11/25/23 History Relief) mirtazapine 15 mg tablet 15 mg PO HS 11/25/23 11/25/23 History morphine 15 mg tablet,extended 15 mg PO BID 11/25/23 11/25/23 History release multivitamin with minerals 1 tab PO DAILY 11/25/23 11/25/23 History (Multiple Vitamin-Minerals tablet) naproxen sodium 220 mg tablet 220 mg PO BID PRN L SHOULDER PAIN 11/25/23 11/25/23 History naproxen sodium 220 mg tablet 220 mg PO UD PRN OTHER PAIN 11/25/23 11/25/23 History venlafaxine 75 mg capsule,extended 75 mg PO BID 11/25/23 11/25/23 History release 24 hr Past Med/Surg History Problem List (Updated 11/25/23 @ 04:04 by Jayro Brennan MD) Hyperlipidemia Multifocal pneumonia (Acute) Acute hypoxic respiratory failure (Acute) Aggressive behavior (Acute) History of psychosis (Acute) Mood disorder (Acute) UTI (urinary tract infection) (Acute) Social History Smoking Status: Unknown if ever smoked Review of Systems Review of Systems: Review of systems is limited due to patient's medical status, and is as provided by correction staff Physical Exam Physical Exam: The patient is intubated and sedated, well developed and well nourished, normocephalic and atraumatic. HEENT--PERRL, EOMI, mucous membranes and oropharynx dry. Neck--supple. No JVD. No bruits. Thyroid normal, trachea midline, no adenopathy. Heart--normal S1 and S2. No murmurs, rubs or gallops. Lungs--coarse breath sounds throughout, few scattered wheezes, on ventilator Abdomen--normal bowel sounds and soft. Nontender. Nondistended. Extremities--no cyanosis or clubbing. No edema. Dermatologic--normal skin turgor, normal color, no abnormal lymph nodes, no rash. Neurologic--limited exam on propofol Rheumatologic--limited exam Psychiatric--sedated on propofol Results & Data Results & Data Vital Signs (Past 12 Hours) Vital Signs Temp Pulse Pulse Resp BP BP Pulse Ox 11/25/23 02:18 77 11/25/23 02:15 71 32 H 144/72 H 91 11/25/23 02:03 76 18 137/69 94 11/25/23 01:58 37 C 11/25/23 01:50 84 157/78 H 96 11/25/23 01:45 158/82 H 11/25/23 01:40 80 24 107/71 11/25/23 01:33 76 24 141/80 H 96 11/25/23 01:27 84 24 146/61 H 95 11/25/23 01:09 87 19 93/52 L 96 11/25/23 01:06 83 18 96 11/25/23 01:00 90 24 90/61 L 95 11/25/23 00:50 106/54 L 11/25/23 00:47 90 105/57 L 11/25/23 00:45 94 H 19 72/46 L 92 11/25/23 00:44 92 H 72/46 L 95 11/25/23 00:36 90 24 143/73 H 96 11/25/23 00:30 171/93 H 11/25/23 00:24 118/83 11/25/23 00:18 117 H 118/83 97 11/25/23 00:02 97 11/24/23 23:56 115 H 30 H 174/108 H 97 11/24/23 23:54 111 H 11/24/23 23:51 113 H 25 H 174/108 H 99 O2 Del Method FiO2 11/25/23 02:18 11/25/23 02:15 Mechanical Vent 11/25/23 02:03 Mechanical Vent 11/25/23 01:58 11/25/23 01:50 Mechanical Vent 11/25/23 01:45 11/25/23 01:40 11/25/23 01:33 11/25/23 01:27 11/25/23 01:09 Mechanical Vent 11/25/23 01:06 60 11/25/23 01:00 Mechanical Vent 11/25/23 00:50 11/25/23 00:47 11/25/23 00:45 Mechanical Vent 11/25/23 00:44 Mechanical Vent 11/25/23 00:36 11/25/23 00:30 11/25/23 00:24 11/25/23 00:18 11/25/23 00:02 BiPAP 11/24/23 23:56 BiPAP 11/24/23 23:54 11/24/23 23:51 Laboratory Results Laboratory Results WBC 22.78 K/ul (4.8-10.8) H 11/25/23 03:38 RBC 4.89 M/uL (4.20-5.40) 11/25/23 03:38 Hgb 13.5 g/dl (12.0-16.0) 11/25/23 03:38 POC Hgb 12.6 g/dl (12.0-16.0) 11/25/23 00:58 Hct 43.2 % (37.0-47.0) 11/25/23 03:38 POC Hct 37 % (37-47) 11/25/23 00:58 MCV 88.3 fL (80.0-100.0) 11/25/23 03:38 MCH 27.6 pg (25.0-34.0) 11/25/23 03:38 MCHC 31.3 g/dL (32.0-36.0) L 11/25/23 03:38 RDW Std Deviation 48.3 fL (36.4-46.3) H 11/25/23 03:38 RDW Coeff of Louise 14.9 % (11.5-14.5) H 11/25/23 03:38 Plt Count 257 K/uL (130-400) 11/25/23 03:38 MPV 10.4 fL (9.4-12.4) 11/25/23 03:38 Immature Gran % (Auto) 0.7 % 11/25/23 00:16 Neut % (Auto) 71.0 % 11/25/23 00:16 Lymph % (Auto) 16.9 % 11/25/23 00:16 Sumner % (Auto) 10.8 % 11/25/23 00:16 Eos % (Auto) 0.3 % 11/25/23 00:16 Baso % (Auto) 0.3 % 11/25/23 00:16 Neut # (Auto) 21.48 K/uL (1.40-6.50) H 11/25/23 00:16 Lymph # (Auto) 5.10 K/uL (1.20-3.40) H 11/25/23 00:16 Sumner # (Auto) 3.26 K/uL (0.11-0.59) H 11/25/23 00:16 Eos # (Auto) 0.08 K/uL (0.00-0.50) 11/25/23 00:16 Baso # (Auto) 0.08 K/uL (0.00-0.20) 11/25/23 00:16 Immature Gran # (Auto) 0.21 K/uL (0.01-0.20) H 11/25/23 00:16 Echinocytes 1+ 11/25/23 00:16 POC pH 7.36 (7.35-7.45) 11/25/23 00:58 POC pCO2 45 mmHg (35-46) 11/25/23 00:58 POC pO2 71 mmHg (80-95) L 11/25/23 00:58 POC HCO3 25 jameel/L (19-24) H 11/25/23 00:58 POC Total CO2 27 mmol/L (24-31) 11/25/23 00:58 POC Base Excess 0.0 jameel/L (-9-1.8) 11/25/23 00:58 POC ABG O2 Sat 93.0 % (90-95) 11/25/23 00:58 VBG pH 7.23 (7.36-7.41) L 11/25/23 00:19 VBG pCO2 73 mmHg (38-50) H 11/25/23 00:19 VBG pO2 51 mmHg 11/25/23 00:19 VBG HCO3 31 mmol/L 11/25/23 00:19 VBG O2 Saturation 81.3 % 11/25/23 00:19 VBG Base Excess 1.0 mEq/L 11/25/23 00:19 POC Sodium 136 mmol/L (135-144) 11/25/23 00:58 Sodium 136 mmol/L (136-145) 11/25/23 00:16 POC Potassium 4.5 mmol/L (3.3-5.0) 11/25/23 00:58 Potassium 4.3 mmol/L (3.5-5.1) 11/25/23 00:16 POC Chloride 98 mmol/L (101-112) L 11/25/23 00:23 Chloride 97 mmol/L (98-107) L 11/25/23 00:16 Carbon Dioxide 30 mmol/L (21-32) 11/25/23 00:16 POC Total CO2 31 mmol/L (24-31) 11/25/23 00:23 Anion Gap 9 (3-11) 11/25/23 00:16 POC Anion Gap 12.0 mmol/L (16-25) L 11/25/23 00:23 POC BUN 23 mg/dl (7-18) H 11/25/23 00:23 BUN 19 mg/dl (6-23) 11/25/23 00:16 Creatinine 0.59 mg/dl (0.6-1.2) L 11/25/23 00:16 POC Creatinine 0.6 mg/dl (0.6-1.3) 11/25/23 00:23 Est Cr Clr Drug Dosing 78.3 ml/min 11/25/23 00:16 eGFR 89.37 11/25/23 00:16 BUN/Creatinine Ratio 32.2 (10-20) H 11/25/23 00:16 Glucose 181 mg/dl (70-99(Fasting)) H 11/25/23 00:16 POC Glucose 254 mg/dl (70-99) H 11/25/23 03:13 POC Glucose (other) 189 mg/dl (70-99) H 11/25/23 00:23 Lactate 1.5 mmol/L (0.4-2.0) 11/25/23 00:16 Calcium 9.7 mg/dl (8.6-10.3) 11/25/23 00:16 POC Ioniz Calcium Maisha 1.17 mmol/l (1.12-1.32) 11/25/23 00:23 Total Bilirubin 0.8 mg/dl (0.2-1.0) 11/25/23 00:16 AST 21 U/L (13-39) 11/25/23 00:16 ALT 18 U/L (7-52) 11/25/23 00:16 Alkaline Phosphatase 132 U/L (34-104) H 11/25/23 00:16 Troponin I High Sens 34.1 pg/ml (0-14) H 11/25/23 00:16 Total Protein 8.0 gm/dl (6.0-8.3) 11/25/23 00:16 Albumin 3.9 gm/dl (3.4-5.0) 11/25/23 00:16 Globulin 4.1 gm/dl (2.5-4.0) H 11/25/23 00:16 Albumin/Globulin Ratio 1.0 (0.9-2) 11/25/23 00:16 Lipase 10 U/L (11-82) L 11/25/23 00:16 Procalcitonin 0.11 ng/ml (0-0.5) 11/25/23 00:16 Urine Color Dark Yellow 11/25/23 01:30 Urine Appearance Turbid (Clear) A 11/25/23 01:30 Urine pH 5.5 (4.5-7.5) 11/25/23 01:30 Ur Specific Hartley 1.021 (1.000-1.030) 11/25/23 01:30 Urine Protein 2+ (Negative) H 11/25/23 01:30 Urine Glucose (UA) Negative (Negative) 11/25/23 01:30 Urine Ketones Negative (Negative) 11/25/23 01:30 Urine Blood 2+ (Negative) H 11/25/23 01:30 Urine Nitrite Positive (Negative) A 11/25/23 01:30 Urine Bilirubin Negative (Negative) 11/25/23 01:30 Urine Urobilinogen Negative (Negative) 11/25/23 01:30 Ur Leukocyte Esterase 2+ (Negative) H 11/25/23 01:30 Urine WBC (Auto) >50 /hpf (0-5) H 11/25/23 01:30 Urine RBC (Auto) 3-5 /hpf (0-2) H 11/25/23 01:30 U Hyaline Cast (Auto) >20 /lpf (0-2) H 11/25/23 01:30 U Epithel Cells (Auto) 6-10 /hpf (0-2) H 11/25/23 01:30 Urine Bacteria (Auto) 4+ (None Seen) H 11/25/23 01:30 Hyaline Casts Present /lpf (None Presnt) A 11/25/23 01:30 Urine Mucus Present (None Prsent) A 11/25/23 01:30 Nasal Screen MRSA (PCR) Negative (Negative) 11/25/23 01:07 Adenovirus (PCR) Not Detected (NotDetected) 11/25/23 00:19 B. pertussis DNA (PCR) Not Detected (NotDetected) 11/25/23 00:19 B.parapertussis DNA PCR Not Detected (NotDetected) 11/25/23 00:19 C. pneumoniae DNA (PCR) Not Detected (NotDetected) 11/25/23 00:19 Coronavirus OC43 (PCR) Not Detected (NotDetected) 11/25/23 00:19 Coronavirus HKU1 (PCR) Not Detected (NotDetected) 11/25/23 00:19 Coronavirus 229E (PCR) Not Detected (NotDetected) 11/25/23 00:19 SARS-CoV-2 (PCR) Not Detected (NotDetected) 11/25/23 00:19 Coronavirus NL63 (PCR) Not Detected (NotDetected) 11/25/23 00:19 Human Metapneumovir PCR Not Detected (NotDetected) 11/25/23 00:19 Influenza Type A (PCR) Not Detected (NotDetected) 11/25/23 00:19 Influenza Type B (PCR) Not Detected (NotDetected) 11/25/23 00:19 M. pneumoniae (PCR) Not Detected (NotDetected) 11/25/23 00:19 Parainfluenza 1 (PCR) Not Detected (NotDetected) 11/25/23 00:19 Parainfluenza 2 (PCR) Not Detected (NotDetected) 11/25/23 00:19 Parainfluenza 3 (PCR) Not Detected (NotDetected) 11/25/23 00:19 Parainfluenza 4 (PCR) Not Detected (NotDetected) 11/25/23 00:19 RSV (PCR) Not Detected (NotDetected) 11/25/23 00:19 Entero/Rhino (PCR) Not Detected (NotDetected) 11/25/23 00:19 Code Status & VTE Plan Code Status Full code VTE Prophylaxis Plan VTE Prophylaxis will be ordered: Yes Critical Care Time 50 minutes PG Care Time/CCT Total # of Minutes Spent Total Time Spent with Patient: Total time spent is greater than 50% in coordination of care (as documented) at patient's floor/unit and/or counseling patient: Coding Level of Care Code 92381 INT INP/OBS CARE 3/75MIN Diagnoses Acute hypoxic respiratory failure J96.01 Multifocal pneumonia J18.9 UTI (urinary tract infection) N39.0 History of psychosis Z86.59 Aggressive behavior R46.89 Mood disorder F39 Hyperlipidemia E78.5
[2023-11-25 04:19] LABS: Albumin Level 3.5 gm/dl (3.4-5.0); Bilirubin,Total 0.8 mg/dl (0.2-1.0); Calcium 8.8 mg/dl (8.6-10.3); Magnesium 1.7 mg/dl (1.7-2.4); Potassium 4.2 mmol/L (3.5-5.1)
[2023-11-25 04:25] LABS: BUN Creatinine Ratio 32.2 (10-20); Creatinine Clr Calc Pharmacy 78.3 ml/min; Globulin 3.6 gm/dl (2.5-4.0); Total Protein 7.1 gm/dl (6.0-8.3)
[2023-11-25 04:32] LABS: Troponin I High Sensitivity 137.7 pg/ml (0-14)
--- NOTE | 2023-11-25 04:35 | Critical Care Consultation ---
Date of Consultation November 25, 2023 Assessment & Plan (1) Acute hypoxic respiratory failure: As below (2) Multifocal pneumonia: As below (3) UTI (urinary tract infection): As below (4) Septic shock: As below Plan #Acute hypoxemic/hypercapneic respiratory failure #Multifocal pneumonia #Metabolic encephalopathy 2/2 hypercapnia #Septic vs vasoplegic shock #UTI #NSTEMI, type I vs type II Neurologic Propofol and fentanyl for RASS goal 0 to -1 Restart home antidepressants and antipsychotics Hold home morphine Cardiovascular MAP goal > 65mmHg, norepinephrine as needed IVC dilated without much respiratory variability, will hold on additional IVF for now, re-evaluate frequently Restart home statin as able Trend troponin, does have some inferolateral T-wave inversions on admit EKG. Consider heparin infusion for NSTEMI management Will load with ASA TTE ordered Respiratory Continue mechanical ventilation Daily SAT/SBT Sputum cx. Patient did have thick yellow secretions on in-line suction No wheezing on exam Daily CXR Given steroid in ED. Will hold on continued steroid for now Gastrointestinal/Nutrition Diet: NPO except meds via OGT. Start tube feeds today SUP: H2B Bowel regimen: Ordered Endocrine SSI as needed for goal BG 140-180 per SCCM guidelines A1c 6.0 a few years ago Infectious disease UTI and pneumonia Continue Zosyn and Vancomycin pending culture data Can D/C vancomycin if MRSA negative BC x2 pending, Sputum pending, UCx pending, MRSA pending Renal/Electrolytes Replete electrolyte per protocol Jung catheter for accurate I/Os Lactate normal Heme/Onc No acute concerns DVT PPX: Enoxaparin Consider heparin infusion for NSTEMI Code status: Assumed Full based on POLST. Will need to contact family today Supervising Physician Co-Signing Physician Notes I saw and evaluated the patient with Joan Clark PA-C, and agree with findings and plan as documented in the note. Patient seen and examined at bedside. Patient was on 15 oh propofol and 25 of fentanyl at the time of examination She was breathing with the vent Tube feeds had been started on her She was RASS -1, easily arousable but not following any commands Constitutional: No acute distress HEENT: EOMI, PERRLA Respiratory system: Good air entry bilaterally, no wheeze, no rhonchi, mild crackles bilateral lower lobes CVS: S1-S2 positive, no murmurs or gallops Abdomen: Soft, nontender, nondistended, positive bowel sounds x4 Extremities: +2 pulses bilaterally radialis/ dorsalis pedis, no cyanosis, no edema Neuro: Breathing with the vent, RASS -1, moving all extremities spontaneously Psych: Unable to assess G/U: Positive Jung --Prophylaxis VTE: Lovenox GI: Pantoprazole Lines: Peripheral Diet: Tube feeds Plan: In/out: +1677, urine output 205 Magnesium and phosphorus are being replaced CT of the head did not show any significant abnormality except for large mastoid and left middle ear effusions Antibiotic should take care of it. Follow-up sputum culture Patient is off vasopressors I have personally spent 48 minutes of critical care time in the direct management of this patient. This is a life/limb threatening event. This includes time spent evaluating patient, direct bedside care, chart review, placing orders, interpretation of diagnostic studies, discussion with consultants, patient, and family members, as well as other required patient management activities. This time is exclusive of all separately billable procedures, and teaching time and separate from and in addition to any other critical care service time. Please note the above document was generated using voice recognition software. It may contain grammatical, syntax or spelling errors. History of Present Illness Reason for Consultation: Acute hypoxic/hypercapneic respiratory failure Attending Physician: Jayro Brennan MD History of Present Illness Ms. Matt is an 83YOF with a history of psychomotor agitation, mood disorder, hyperlipidemia, and chronic pain who presented to the emergency department due to shortness of breath starting 11/24/2023. Per report, patient is a resident and [facility]. She has been developing worsening shortness of breath throughout the day and was sent to [facility] for further evaluation. Patient was intubated on arrival to ED due to depressed mentation and hypoxemia. ABG showed hypercapnia. CXR consistent with multifocal pneumonia. Received ceftriaxone and vancomycin. I did add Zosyn given she lives in a long-term care facility. Also received 1L NSS, solumedrol x1. Remainder of work-up remarkable for WBC of 30K. RVP negative. Became hypotensive post-intubation for which she was started on norepinephrine. I performed POCUS in ED - Patient has LVH, apical hypokinesis. IVC normal size and minimally collapsible. Valves not assessed. She is admitted to ICU for continuation of care. Remains sedated on propofol. ROS unable to be obtained due to clinical condition. Allergies Allergy/AdvReac Type Severity Reaction Status Date / Time thimerosal Allergy Unknown unknown Verified 11/25/23 00:06 Home Medications Medication Instructions Recorded Confirmed Type acetaminophen 325 mg tablet 325 mg PO Q6 PRN PAIN 1-10 11/25/23 11/25/23 History aripiprazole 2 mg tablet 2 mg PO HS 11/25/23 11/25/23 History atorvastatin 10 mg tablet 10 mg PO HS 11/25/23 11/25/23 History diclofenac sodium 1 % topical gel 1 g topical .DAY & EVENING SHIFT 11/25/23 11/25/23 History divalproex 125 mg capsule,delayed 125 mg PO DAILY 11/25/23 11/25/23 History release sprinkle menthol 0.1 % lotion (Eucerin Itch 1 ea topical BID 11/25/23 11/25/23 History Relief) mirtazapine 15 mg tablet 15 mg PO HS 11/25/23 11/25/23 History morphine 15 mg tablet,extended 15 mg PO BID 11/25/23 11/25/23 History release multivitamin with minerals 1 tab PO DAILY 11/25/23 11/25/23 History (Multiple Vitamin-Minerals tablet) naproxen sodium 220 mg tablet 220 mg PO BID PRN L SHOULDER PAIN 11/25/23 11/25/23 History naproxen sodium 220 mg tablet 220 mg PO UD PRN OTHER PAIN 11/25/23 11/25/23 History venlafaxine 75 mg capsule,extended 75 mg PO BID 11/25/23 11/25/23 History release 24 hr Patient History Social History Smoking Status: Unknown if ever smoked Hx Substance Use: No (pt intubated) Preferred Language: Congolese Communication Ability: Impaired Mri Manager Required: No Beliefs That Will Affect Care: None Current Living Situation: [facility] Other Information That Helps Us Care for You: No Feels Safe at Home: Yes Safety Concerns: Feels Safe At This Time Assistive Devices Comment: pt intubated; unable to assess Review of Systems 2 Review of Systems: Unobtainable due to endotracheal tube Physical Exam 2 Constitutional: Elderly female, intubated and sedated. Eyes: PERRL, conjunctivae normal, anicteric sclerae ENMT: ETT in place. MM dry Respiratory: no respiratory distress Auscultation: + diminished lung sounds and + rhonchi Cardiovascular: Rate/Rhythm: regular rate and regular rhythm Heart Sounds: no murmur Extremities: no edema Gastrointestinal (Abdomen): normal bowel sounds, soft, nontender, no hepatosplenomegaly Skin: no rashes, warm and dry Neurologic: Moving all extremities prior to intubation per RN. Low concern for CVA. Results & Data Results & Data Vital Signs (Past 12 Hours) Vital Signs Temp Pulse Pulse Resp BP BP Pulse Ox 11/25/23 04:00 11/25/23 03:51 37.2 C 79 20 95 11/25/23 03:46 111/54 L 11/25/23 03:46 111/54 L 11/25/23 03:46 111/54 L 11/25/23 03:45 37.2 C 77 20 97 11/25/23 03:33 37.2 C 78 20 97 11/25/23 03:30 162/72 H 11/25/23 03:30 162/72 H 11/25/23 03:18 37.2 C 71 20 97 11/25/23 03:15 159/65 H 11/25/23 03:15 37.2 C 71 20 97 11/25/23 03:12 37.2 C 72 20 98 11/25/23 03:00 37.2 C 70 20 98 11/25/23 03:00 155/63 H 11/25/23 03:00 155/63 H 11/25/23 02:57 157/70 H 11/25/23 02:46 139/56 L 11/25/23 02:45 37.1 C 70 20 99 11/25/23 02:42 149/74 H 11/25/23 02:42 149/74 H 11/25/23 02:42 149/74 H 11/25/23 02:18 77 11/25/23 02:15 71 32 H 144/72 H 91 11/25/23 02:10 152/75 H 11/25/23 02:10 152/75 H 11/25/23 02:03 76 18 137/69 94 11/25/23 01:58 37 C 11/25/23 01:50 84 157/78 H 96 11/25/23 01:45 158/82 H 11/25/23 01:40 80 24 107/71 11/25/23 01:33 76 24 141/80 H 96 11/25/23 01:27 84 24 146/61 H 95 11/25/23 01:09 87 19 93/52 L 96 11/25/23 01:06 83 18 96 11/25/23 01:00 90 24 90/61 L 95 11/25/23 00:50 106/54 L 11/25/23 00:47 90 105/57 L 11/25/23 00:45 94 H 19 72/46 L 92 11/25/23 00:44 92 H 72/46 L 95 11/25/23 00:36 90 24 143/73 H 96 11/25/23 00:30 171/93 H 11/25/23 00:24 118/83 11/25/23 00:18 117 H 118/83 97 11/25/23 00:02 97 11/24/23 23:56 115 H 30 H 174/108 H 97 11/24/23 23:54 111 H 11/24/23 23:51 113 H 25 H 174/108 H 99 O2 Del Method FiO2 11/25/23 04:00 60 11/25/23 03:51 11/25/23 03:46 11/25/23 03:46 11/25/23 03:46 11/25/23 03:45 11/25/23 03:33 11/25/23 03:30 11/25/23 03:30 11/25/23 03:18 11/25/23 03:15 11/25/23 03:15 11/25/23 03:12 11/25/23 03:00 11/25/23 03:00 11/25/23 03:00 11/25/23 02:57 11/25/23 02:46 11/25/23 02:45 11/25/23 02:42 11/25/23 02:42 11/25/23 02:42 11/25/23 02:18 11/25/23 02:15 Mechanical Vent 11/25/23 02:10 11/25/23 02:10 11/25/23 02:03 Mechanical Vent 11/25/23 01:58 11/25/23 01:50 Mechanical Vent 11/25/23 01:45 11/25/23 01:40 11/25/23 01:33 11/25/23 01:27 11/25/23 01:09 Mechanical Vent 11/25/23 01:06 60 11/25/23 01:00 Mechanical Vent 11/25/23 00:50 11/25/23 00:47 11/25/23 00:45 Mechanical Vent 11/25/23 00:44 Mechanical Vent 11/25/23 00:36 11/25/23 00:30 11/25/23 00:24 11/25/23 00:18 11/25/23 00:02 BiPAP 11/24/23 23:56 BiPAP 11/24/23 23:54 11/24/23 23:51 Laboratory Results 11/25/23 03:38 11/25/23 03:38 Coding Level of Care Code 15754 CRITICAL CARE 1ST 30-74M Diagnoses Acute hypoxic respiratory failure J96.01 Multifocal pneumonia J18.9 UTI (urinary tract infection) N39.0 Septic shock A41.9; R65.21
[2023-11-25 04:57] LABS: iSTAT Allen Test Pass; iSTAT Art Bld Gas pCO2 Correct 32 mmHg (35-46); iSTAT Art Bld Gas pH Corrected 7.464 (7.35-7.45); iSTAT Arterial Blood Gas HCO3 23 meg/L (19-24); iSTAT Arterial Blood Gas pCO2 32 mmHg (35-46); iSTAT Arterial Blood Gas pH 7.46 (7.35-7.45); iSTAT Arterial Blood Gas pO2 70 mmHg (80-95); iSTAT Arterial Blood Gas pO2 C 70; iSTAT Carbon Dioxide 24 mmol/L (24-31); iSTAT FiO2 60 %; iSTAT Hematocrit 37 % (37-47); iSTAT Hemoglobin 12.6 g/dl (12.0-16.0); iSTAT Potassium 3.7 mmol/L (3.3-5.0); iSTAT Site R Radial; iSTAT Sodium 134 mmol/L (135-144)
[2023-11-25] MEDS ORDERED: CARBOHYDRATES FOR HYPOGLYCEMIA PO PRN (05:08)
[2023-11-25] MEDS ORDERED: GLUCOSE 40% GEL 15 GM TUBE PO PRN (05:08)
[2023-11-25] MEDS ORDERED: DEXTROSE 50% 50 ML SYRINGE IV PRN (05:08)
[2023-11-25] MEDS ORDERED: GLUCAGON FOR INJ 1 MG VIAL SQ PRN (05:08)
[2023-11-25] MEDS ORDERED: GLUCOSE 10 TAB/TUBE PO PRN (05:08)
[2023-11-25] MEDS: ICU Protocol for HYPERglycemia SCH (05:14)
[2023-11-25 05:34] LABS: INR 1.2 (0.9-1.1); Partial Thromboplastin Ratio 1.2; Partial Thromboplastin Time 33 Seconds (21-31); Prothrombin Time 12.4 Seconds (9.0-12.0)
[2023-11-25] MEDS: INSULIN ASPART PER UNIT CHARGE SC SCH (05:56)
[2023-11-25 06:22] LABS: Phosphorus 2.4 mg/dl (2.5-4.9)
--- NOTE | 2023-11-25 06:47 | XRay Report ---
KUB HISTORY: Status post placement of an enteric tube tube placement COMPARISON: KUB of same day 1:56 AM FINDINGS: Position enteric tube distal tip projects over the right upper quadrant abdomen, likely wit hin the distal stomach or proximal duodenum. Endotracheal tube overlies the midline, 1.3 cm superior to the isaiah. The heart is enlarged. Lower abdomen is excluded from the [id number]. Bowel gas pat tern appears nonobstructive. No renal calculi. No ureteral calculi. No pneumoperitoneum or pneumatos is. No fracture. IMPRESSION: Repositioned enteric tube distal tip projects over the abdominal right upper quadrant, likely within the distal stomach or proximal duodenum. ACT 112: Negative or not required by law. The above report was generated using voice recognition software. It may contain grammatical, syntax o r spelling errors. Electronically signed by: Steve Shanks M.D. 11/25/2023 6:46 AM
[2023-11-25] MEDS ORDERED: SODIUM PHOSPHATE 3 MMOL/1 ML 5 ML VIAL IV ONE (06:51)
[2023-11-25] MEDS: ASPIRIN 300 MG SUPP PR ONE (07:01)
[2023-11-25] MEDS: SODIUM PHOSPHATE 15 MMOL in SODIUM CHLORIDE 0.9% 250 ML IV ONE (07:01)
[2023-11-25] MEDS ORDERED: ICU Protocol for HYPERglycemia SCH (07:30)
--- NOTE | 2023-11-25 07:30 | Hospitalist Progress Note ---
Date of Service November 25, 2023 Assessment & Plan (1) Multifocal pneumonia: Plan: Acute respiratory failure with hypoxia/multifocal pneumonia- concern for sepsis from pneumonia poa, but also has abnormal ua concern for possible uti Intubated in the ED, sedated and ventilated Zosyn 4.5 g IV every 8 hours Vancomycin IV per pharmacokinetic monitoring Solu-Medrol 80 mg IV from the ED Status post 1 L normal saline bolus in the ED Levophed IV per protocol as needed for hypotension Pantoprazole 40 mg IV daily Acetaminophen 1 g IV every 8 hours as needed for mild pain or fever Zofran 4 mg IV every 6 hours as needed (2) 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 Plan Urinary tract infection- Follow urine culture sensitivity Antibiotics IV as noted above elevated troponin suspect demand ischemia, was seen by cardiology not recommending heparin or further testing Hyperlipidemia- Hold atorvastatin until extubated and taking p.o. Admission and Anticipated Discharge Date Admission Date: November 25, 2023 Subjective intubated sedated and ventilated tapering pressors Physical Exam Physical Exam: cardiac exam is regular lungs are coarse and consistent with ventilated lungs abd is soft Results & Data Results & Data Vital Signs (Past 12 Hours) Vital Signs Temp Pulse Pulse Resp BP BP Pulse Ox 11/25/23 06:00 129/59 L 11/25/23 05:45 135/65 11/25/23 05:30 134/64 11/25/23 05:21 98.6 F 72 18 96 11/25/23 05:19 66 18 96 11/25/23 05:12 98.6 F 64 18 96 11/25/23 05:06 98.8 F 66 18 96 11/25/23 05:00 123/61 11/25/23 05:00 123/61 11/25/23 04:46 117/50 L 11/25/23 04:45 98.8 F 67 24 95 11/25/23 04:42 98.8 F 66 20 95 11/25/23 04:33 99.0 F 66 20 98 11/25/23 04:30 173/66 H 11/25/23 04:30 173/66 H 11/25/23 04:24 99.0 F 67 20 100 11/25/23 04:18 99.0 F 66 20 100 11/25/23 04:16 170/66 H 11/25/23 04:16 170/66 H 11/25/23 04:06 99.0 F 68 20 99 11/25/23 04:00 98/52 L 11/25/23 04:00 99.0 F 80 20 94 11/25/23 04:00 11/25/23 03:58 94/48 L 11/25/23 03:51 99.0 F 79 20 95 11/25/23 03:46 111/54 L 11/25/23 03:46 111/54 L 11/25/23 03:46 111/54 L 11/25/23 03:45 99.0 F 77 20 97 11/25/23 03:33 99.0 F 78 20 97 11/25/23 03:30 162/72 H 11/25/23 03:30 162/72 H 11/25/23 03:18 99.0 F 71 20 97 11/25/23 03:15 11/25/23 03:15 98.1 F 75 20 124/71 95 11/25/23 03:15 159/65 H 11/25/23 03:15 99.0 F 71 20 97 11/25/23 03:12 99.0 F 72 20 98 11/25/23 03:00 99.0 F 70 20 98 11/25/23 03:00 155/63 H 11/25/23 03:00 155/63 H 11/25/23 02:57 157/70 H 11/25/23 02:46 139/56 L 11/25/23 02:45 98.8 F 70 20 99 11/25/23 02:42 149/74 H 11/25/23 02:42 149/74 H 11/25/23 02:42 149/74 H 11/25/23 02:18 77 11/25/23 02:15 71 32 H 144/72 H 91 11/25/23 02:10 152/75 H 11/25/23 02:10 152/75 H 11/25/23 02:03 76 18 137/69 94 11/25/23 01:58 98.6 F 11/25/23 01:50 84 157/78 H 96 11/25/23 01:45 158/82 H 11/25/23 01:40 80 24 107/71 11/25/23 01:33 76 24 141/80 H 96 11/25/23 01:27 84 24 146/61 H 95 11/25/23 01:09 87 19 93/52 L 96 11/25/23 01:06 83 18 96 11/25/23 01:00 90 24 90/61 L 95 11/25/23 00:50 106/54 L 11/25/23 00:47 90 105/57 L 11/25/23 00:45 94 H 19 72/46 L 92 11/25/23 00:44 92 H 72/46 L 95 11/25/23 00:36 90 24 143/73 H 96 11/25/23 00:30 171/93 H 11/25/23 00:24 118/83 11/25/23 00:18 117 H 118/83 97 11/25/23 00:02 97 11/24/23 23:56 115 H 30 H 174/108 H 97 11/24/23 23:54 111 H 11/24/23 23:51 113 H 25 H 174/108 H 99 O2 Del Method FiO2 11/25/23 06:00 11/25/23 05:45 11/25/23 05:30 11/25/23 05:21 11/25/23 05:19 11/25/23 05:12 11/25/23 05:06 11/25/23 05:00 11/25/23 05:00 11/25/23 04:46 11/25/23 04:45 11/25/23 04:42 11/25/23 04:33 11/25/23 04:30 11/25/23 04:30 11/25/23 04:24 11/25/23 04:18 11/25/23 04:16 11/25/23 04:16 11/25/23 04:06 11/25/23 04:00 11/25/23 04:00 11/25/23 04:00 60 11/25/23 03:58 11/25/23 03:51 11/25/23 03:46 11/25/23 03:46 11/25/23 03:46 11/25/23 03:45 11/25/23 03:33 11/25/23 03:30 11/25/23 03:30 11/25/23 03:18 11/25/23 03:15 Mechanical Vent 60 11/25/23 03:15 Mechanical Vent 60 11/25/23 03:15 11/25/23 03:15 11/25/23 03:12 11/25/23 03:00 11/25/23 03:00 11/25/23 03:00 11/25/23 02:57 11/25/23 02:46 11/25/23 02:45 11/25/23 02:42 11/25/23 02:42 11/25/23 02:42 11/25/23 02:18 11/25/23 02:15 Mechanical Vent 11/25/23 02:10 11/25/23 02:10 11/25/23 02:03 Mechanical Vent 11/25/23 01:58 11/25/23 01:50 Mechanical Vent 11/25/23 01:45 11/25/23 01:40 11/25/23 01:33 11/25/23 01:27 11/25/23 01:09 Mechanical Vent 11/25/23 01:06 60 11/25/23 01:00 Mechanical Vent 11/25/23 00:50 11/25/23 00:47 11/25/23 00:45 Mechanical Vent 11/25/23 00:44 Mechanical Vent 11/25/23 00:36 11/25/23 00:30 11/25/23 00:24 11/25/23 00:18 11/25/23 00:02 BiPAP 11/24/23 23:56 BiPAP 11/24/23 23:54 11/24/23 23:51 Laboratory Results review cbc review chemistry PG Care Time/CCT Total # of Minutes Spent Total Time Spent with Patient: Total time spent is greater than 50% in coordination of care (as documented) at patient's floor/unit and/or counseling patient: Coding Level of Care Code 54939 SUB INP/OBS CARE 3/50MIN Diagnoses Multifocal pneumonia J18.9 History of psychosis Z86.59
--- NOTE | 2023-11-25 07:45 | XRay Report ---
SINGLE VIEW CHEST CLINICAL HISTORY: Atypical chest pain. Respiratory failure. FINDINGS: 2 AP, portable, supine chest radiographs are compared to study dated 07/04/2010. An endotrac heal tube has been placed. The tip projects approximately 2.5 cm above the isaiah. The heart is mildl y enlarged but noting atherosclerotic calcification of the thoracic aorta. There is pulmonary vascula r congestion. There is fullness of the estela. There are small pleural effusions with bibasilar consoli dation. No pneumothorax is seen. The skeletal structures are osteopenic. The bony thorax is grossly i ntact. Degenerative change is seen in the shoulders. IMPRESSION: 1. An endotracheal tube has been placed as above. 2. Cardiomegaly with pulmonary vascular congestion. 3. Small pleural effusions with dependent consolidation. 4. There is fullness of the estela, which could represent dilated main pulmonary arteries or possibly l ymphadenopathy. If warranted this can be further assessed with a contrast-enhanced CT scan. ACT 112: Negative or not required by law. Electronically signed by: Fredi Pearce M.D. 11/25/2023 7:43 AM
[2023-11-25] MEDS: MAGNESIUM SULFATE / D5W 1 GM/100 ML BAG IV SCH (07:48)
[2023-11-25] MEDS: ENOXAPARIN INJ 40 MG/0.4 ML SYR SQ SCH (07:48)
--- NOTE | 2023-11-25 07:57 | XRay Report ---
KUB CLINICAL HISTORY: Enteric tube placement. FINDINGS: An AP, portable, upright view of the lower chest and upper abdomen is compared to study chris ed 07/04/2010. There is no radiographic evidence of bowel obstruction. An enteric tube has been placed . The tip is coiled in the distal esophagus. No evidence of intraperitoneal free air is seen below th e diaphragm. No abnormal calcifications are shown in the upper abdomen. There are small pleural effus ions with dependent consolidation. The heart appears enlarged. An endotracheal tube is partially visu alized and terminates above the isaiah. IMPRESSION: 1. An enteric tube has been placed and is coiled in the distal esophagus. A subsequent image shows th at this has been repositioned. 2. There is no evidence of bowel obstruction. 3. Pleural effusions with dependent consolidation. Electronically signed by: Fredi Pearce M.D. 11/25/2023 7:56 AM
[2023-11-25] MEDS: PIPERACILLIN/TAZOBACTAM 4.5 GM/100 ML BAG IV SCH (08:37)
[2023-11-25] MEDS: PANTOprazole 40 MG in SYRINGE 0 ML IV SCH (09:38)
--- NOTE | 2023-11-25 10:26 | CT Scan Report ---
CT head/brain wo con CLINICAL HISTORY: 83 years-old Female with AMS. Acutely altered mental status TECHNIQUE: Multiple axial CT images of the head were obtained without contrast. A dose lowering tech nique was utilized adhering to the principles of ALARA. CT DOSE: 625.8 mGy.cm COMPARISON: 12/01/2009 FINDINGS: No acute intracranial hemorrhage, midline shift, intra-axial mass, hydrocephalus, territorial ischemi a or acute extra-axial collection. Arachnoid cyst adjacent to the left frontal and temporal lobes red emonstrated measuring up to proximal 5.7 x 3.2 cm, previously 5.0 x 2.9 cm again resulting in mass ef fect without midline shift. Chronic remodeling of the adjacent calvarium. Involutional changes with c hronic microvascular ischemic disease. Cerebrovascular calcifications are present. The calvarium is intact. Hyperostosis frontalis interna. Mild mucosal thickening of the paranasal sin uses. Large mastoid and left middle ear effusions. IMPRESSION: 1. No acute intracranial abnormality. 2. Large mastoid and left middle ear effusions. 3. Left-sided arachnoid cyst redemonstrated. ACT 112: Negative or not required by law. The above report was generated using voice recognition software. It may contain grammatical, syntax o r spelling errors. Electronically signed by: Steve Shanks M.D. 11/25/2023 10:24 AM
--- NOTE | 2023-11-25 11:11 | XCELERA ---
[id number] [email or web address]\[id number]
--- NOTE | 2023-11-25 12:23 | Cardiology Consultation ---
Date of Consultation November 25, 2023 Assessment & Plan (1) Elevated troponin: -Suspect a supply/demand mismatch. -She does have LVH on her echocardiogram and has been hypotensive requiring pressors. -Does not appear to be in acute coronary syndrome. -Would not heparinize. (2) Acute hypoxic respiratory failure: -Presumed multilobar pneumonia. -There may be a component of pulmonary edema. -Would check a BNP. -Consider a trial of diuresis when blood pressure allows. History of Present Illness Attending Physician: Reginaldo Cook MD History of Present Illness Mrs. Matt is an 83-year-old female admitted yesterday with acute respiratory failure requiring mechanical ventilation. Her high-sensitivity troponin is elevated, and therefore, this consultation was ordered. Of note, the history is obtained from chart review as the patient is sedated and intubated in the intensive care unit. According to the record, patient was in her usual state of health until the day of presentation. She was having respiratory difficulty throughout the day and was unable to talk. She was sent to the emergency room and found to be hypoxic, hypercarbic, and had decreased mentation. She was intubated and started on intravenous antibiotics for a presumed multilobar pneumonia. No cardiac history is identified in the chart. Currently, the patient is sedated, intubated, and in the intensive care unit. Past medical and surgical history 1. Hypercholesterolemia 2. Mood disorder 3. History of psychosis Social history Resident at [facility] Family history Unobtainable Review of system Unobtainable Allergies Allergy/AdvReac Type Severity Reaction Status Date / Time thimerosal Allergy Unknown unknown Verified 11/25/23 00:06 Home Medications Medication Instructions Recorded Confirmed Type acetaminophen 325 mg tablet 325 mg PO Q6 PRN PAIN 1-10 11/25/23 11/25/23 History aripiprazole 2 mg tablet 2 mg PO HS 11/25/23 11/25/23 History atorvastatin 10 mg tablet 10 mg PO HS 11/25/23 11/25/23 History diclofenac sodium 1 % topical gel 1 g topical .DAY & EVENING SHIFT 11/25/23 11/25/23 History divalproex 125 mg capsule,delayed 125 mg PO DAILY 11/25/23 11/25/23 History release sprinkle menthol 0.1 % lotion (Eucerin Itch 1 ea topical BID 11/25/23 11/25/23 History Relief) mirtazapine 15 mg tablet 15 mg PO HS 11/25/23 11/25/23 History morphine 15 mg tablet,extended 15 mg PO BID 11/25/23 11/25/23 History release multivitamin with minerals 1 tab PO DAILY 11/25/23 11/25/23 History (Multiple Vitamin-Minerals tablet) naproxen sodium 220 mg tablet 220 mg PO BID PRN L SHOULDER PAIN 11/25/23 11/25/23 History naproxen sodium 220 mg tablet 220 mg PO UD PRN OTHER PAIN 11/25/23 11/25/23 History venlafaxine 75 mg capsule,extended 75 mg PO BID 11/25/23 11/25/23 History release 24 hr Patient History Social History Smoking Status: Unknown if ever smoked Hx Substance Use: No (pt intubated) Preferred Language: Bulgarian Communication Ability: Impaired Wool Brusher Required: No Beliefs That Will Affect Care: None Current Living Situation: Senior Living Other Information That Helps Us Care for You: No Feels Safe at Home: Yes Safety Concerns: Feels Safe At This Time Assistive Devices Comment: pt intubated; unable to assess Physical Exam Physical Exam: In general this is a well-developed well-nourished female intubated and sedated in the ICU. HEENT exam notes an ET tube in place. Neck is soft with full carotid upstrokes. Jugular is pressure difficult to assess. Cardiovascular reveals a regular rhythm with distant heart sounds. No obvious murmurs. No S3. Lungs are clear anteriorly. Abdomen is soft without bruits. Extremities note no peripheral edema. Results & Data Vital Signs (Past 12 Hours) Vital Signs Temp Pulse Pulse Resp BP BP Pulse Ox 11/25/23 11:12 63 18 95 11/25/23 09:06 36.6 C 69 18 93 11/25/23 09:00 111/63 11/25/23 08:48 36.6 C 72 18 92 11/25/23 08:45 36.6 C 71 18 93 11/25/23 08:45 118/82 11/25/23 08:45 118/82 11/25/23 08:45 118/82 11/25/23 08:45 118/82 11/25/23 08:45 118/82 11/25/23 08:42 36.6 C 69 18 94 11/25/23 08:30 36.6 C 69 18 96 11/25/23 08:30 124/66 11/25/23 08:18 36.6 C 67 18 96 11/25/23 08:15 137/71 11/25/23 08:03 36.6 C 67 18 96 11/25/23 08:00 11/25/23 08:00 142/73 H 11/25/23 08:00 142/73 H 11/25/23 08:00 142/73 H 11/25/23 08:00 11/25/23 08:00 11/25/23 08:00 60 11/25/23 07:57 36.5 C 61 18 99 11/25/23 07:48 36.5 C 62 18 97 11/25/23 07:45 130/73 11/25/23 07:45 130/73 11/25/23 07:36 36.5 C 61 18 96 11/25/23 07:34 61 18 96 11/25/23 07:30 153/77 H 11/25/23 07:24 36.5 C 65 18 96 11/25/23 07:21 36.5 C 68 18 94 11/25/23 07:18 36.5 C 62 18 96 11/25/23 07:15 134/62 11/25/23 07:15 134/62 11/25/23 07:06 36.6 C 59 L 18 96 11/25/23 07:00 124/59 L 11/25/23 06:45 129/64 11/25/23 06:45 129/64 11/25/23 06:45 129/64 11/25/23 06:39 36.7 C 61 18 96 11/25/23 06:30 135/62 11/25/23 06:00 129/59 L 11/25/23 05:45 135/65 11/25/23 05:30 134/64 11/25/23 05:21 37.0 C 72 18 96 11/25/23 05:19 66 18 96 11/25/23 05:12 37.0 C 64 18 96 11/25/23 05:06 37.1 C 66 18 96 11/25/23 05:00 123/61 11/25/23 05:00 123/61 11/25/23 04:46 117/50 L 11/25/23 04:45 37.1 C 67 24 95 11/25/23 04:42 37.1 C 66 20 95 11/25/23 04:33 37.2 C 66 20 98 11/25/23 04:30 173/66 H 11/25/23 04:30 173/66 H 11/25/23 04:24 37.2 C 67 20 100 11/25/23 04:18 37.2 C 66 20 100 11/25/23 04:16 170/66 H 11/25/23 04:16 170/66 H 11/25/23 04:06 37.2 C 68 20 99 11/25/23 04:00 98/52 L 11/25/23 04:00 37.2 C 80 20 94 11/25/23 04:00 11/25/23 03:58 94/48 L 11/25/23 03:51 37.2 C 79 20 95 11/25/23 03:46 111/54 L 11/25/23 03:46 111/54 L 11/25/23 03:46 111/54 L 11/25/23 03:45 37.2 C 77 20 97 11/25/23 03:33 37.2 C 78 20 97 11/25/23 03:30 162/72 H 11/25/23 03:30 162/72 H 11/25/23 03:18 37.2 C 71 20 97 11/25/23 03:15 11/25/23 03:15 36.7 C 75 20 124/71 95 11/25/23 03:15 159/65 H 11/25/23 03:15 37.2 C 71 20 97 11/25/23 03:12 37.2 C 72 20 98 11/25/23 03:00 37.2 C 70 20 98 11/25/23 03:00 155/63 H 11/25/23 03:00 155/63 H 11/25/23 02:57 157/70 H 11/25/23 02:46 139/56 L 11/25/23 02:45 37.1 C 70 20 99 11/25/23 02:42 149/74 H 11/25/23 02:42 149/74 H 11/25/23 02:42 149/74 H 11/25/23 02:18 77 11/25/23 02:15 71 32 H 144/72 H 91 11/25/23 02:10 152/75 H 11/25/23 02:10 152/75 H 11/25/23 02:03 76 18 137/69 94 11/25/23 01:58 37 C 11/25/23 01:50 84 157/78 H 96 11/25/23 01:45 158/82 H 11/25/23 01:40 80 24 107/71 11/25/23 01:33 76 24 141/80 H 96 11/25/23 01:27 84 24 146/61 H 95 11/25/23 01:09 87 19 93/52 L 96 11/25/23 01:06 83 18 96 11/25/23 01:00 90 24 90/61 L 95 11/25/23 00:50 106/54 L 11/25/23 00:47 90 105/57 L 11/25/23 00:45 94 H 19 72/46 L 92 11/25/23 00:44 92 H 72/46 L 95 11/25/23 00:36 90 24 143/73 H 96 11/25/23 00:30 171/93 H 11/25/23 00:24 118/83 O2 Del Method FiO2 11/25/23 11:12 60 11/25/23 09:06 11/25/23 09:00 11/25/23 08:48 11/25/23 08:45 11/25/23 08:45 11/25/23 08:45 11/25/23 08:45 11/25/23 08:45 11/25/23 08:45 11/25/23 08:42 11/25/23 08:30 11/25/23 08:30 11/25/23 08:18 11/25/23 08:15 11/25/23 08:03 11/25/23 08:00 Mechanical Vent 11/25/23 08:00 11/25/23 08:00 11/25/23 08:00 11/25/23 08:00 60 11/25/23 08:00 Mechanical Vent 60 11/25/23 08:00 11/25/23 07:57 11/25/23 07:48 11/25/23 07:45 11/25/23 07:45 11/25/23 07:36 11/25/23 07:34 60 11/25/23 07:30 11/25/23 07:24 11/25/23 07:21 11/25/23 07:18 11/25/23 07:15 11/25/23 07:15 11/25/23 07:06 11/25/23 07:00 11/25/23 06:45 11/25/23 06:45 11/25/23 06:45 11/25/23 06:39 11/25/23 06:30 11/25/23 06:00 11/25/23 05:45 11/25/23 05:30 11/25/23 05:21 11/25/23 05:19 11/25/23 05:12 11/25/23 05:06 11/25/23 05:00 11/25/23 05:00 11/25/23 04:46 11/25/23 04:45 11/25/23 04:42 11/25/23 04:33 11/25/23 04:30 11/25/23 04:30 11/25/23 04:24 11/25/23 04:18 11/25/23 04:16 11/25/23 04:16 11/25/23 04:06 11/25/23 04:00 11/25/23 04:00 11/25/23 04:00 60 11/25/23 03:58 11/25/23 03:51 11/25/23 03:46 11/25/23 03:46 11/25/23 03:46 11/25/23 03:45 11/25/23 03:33 11/25/23 03:30 11/25/23 03:30 11/25/23 03:18 11/25/23 03:15 Mechanical Vent 60 11/25/23 03:15 Mechanical Vent 60 11/25/23 03:15 11/25/23 03:15 11/25/23 03:12 11/25/23 03:00 11/25/23 03:00 11/25/23 03:00 11/25/23 02:57 11/25/23 02:46 11/25/23 02:45 11/25/23 02:42 11/25/23 02:42 11/25/23 02:42 11/25/23 02:18 11/25/23 02:15 Mechanical Vent 11/25/23 02:10 11/25/23 02:10 11/25/23 02:03 Mechanical Vent 11/25/23 01:58 11/25/23 01:50 Mechanical Vent 11/25/23 01:45 11/25/23 01:40 11/25/23 01:33 11/25/23 01:27 11/25/23 01:09 Mechanical Vent 11/25/23 01:06 60 11/25/23 01:00 Mechanical Vent 11/25/23 00:50 11/25/23 00:47 11/25/23 00:45 Mechanical Vent 11/25/23 00:44 Mechanical Vent 11/25/23 00:36 11/25/23 00:30 11/25/23 00:24 Laboratory Results CBC notes hemoglobin of 13.5, hematocrit 43.2, white count 22.8, and a platelet count of 257,000. Electrolytes noted sodium of 133, Tessman 4.2, chloride 99, bicarb 24, BUN 19, creatinine 0.59, and a glucose of 259. Initial high- sensitivity troponin was 34 with follow-up values of 138, 154, and 124. Diagnostic Findings Echocardiogram notes normal left ventricular systolic function without wall motion abnormalities. An estimated left ventricular ejection fraction is 55 to 60% there is mild LVH and no significant valvular pathology. EKG notes normal sinus rhythm with a complete right bundle branch block and left anterior hemiblock. An old anteroseptal myocardial infarction cannot be excluded. There is evidence of LVH. PG Care Time/CCT Total # of Minutes Spent Total Time Spent with Patient: Total time spent is greater than 50% in coordination of care (as documented) at patient's floor/unit and/or counseling patient: Coding Level of Care Code 08718 INT INP/OBS CARE 3/75MIN Diagnoses Elevated troponin R79.89 Acute hypoxic respiratory failure J96.01
[2023-11-25] MEDS: TUBE FEEDING WATER FLUSH OG SCH (13:33)
[2023-11-25] MEDS: PEPTAMEN INTENSE VHP 1.0 CAL 1,000 ML BAG OG SCH (13:33)
[2023-11-25] MEDS ORDERED: VANCOMYCIN HCL 1,000 MG in SODIUM CHLORIDE 0.9% 250 ML IV SCH (15:00)
--- NOTE | 2023-11-25 15:13 | Electrocardiogram Report ---
Test Reason : Blood Pressure : */* mmHG Vent. Rate : 113 BPM Atrial Rate : 113 BPM P-R Int : 158 ms QRS Dur : 140 ms QT Int : 362 ms P-R-T Axes : 75 -66 69 degrees QTcB Int : 496 ms Sinus tachycardia Possible Left atrial enlargement Right bundle branch block Left anterior fascicular block Bifascicular block Left ventricular hypertrophy with repolarization abnormality ( R in aVL ) Cannot rule out Septal infarct , age undetermined Abnormal ECG When compared with ECG of 14-May-2010 19:07, Significant changes have occurred Confirmed by Piotr De La Vega ([id number]) on 11/25/2023 3:13:08 PM Referred By: [facility] Confirmed By: Piotr De La Vega
--- NOTE | 2023-11-25 15:30 | Electrocardiogram Report ---
Test Reason : Blood Pressure : */* mmHG Vent. Rate : 66 BPM Atrial Rate : 66 BPM P-R Int : 156 ms QRS Dur : 144 ms QT Int : 528 ms P-R-T Axes : 56 -73 -31 degrees QTcB Int : 553 ms Normal sinus rhythm Possible Left atrial enlargement Right bundle branch block Left anterior fascicular block Bifascicular block Left ventricular hypertrophy Cannot rule out Septal infarct (cited on or before 24-Nov-2023) T wave abnormality, consider inferolateral ischemia Abnormal ECG When compared with ECG of 24-Nov-2023 23:53, (unconfirmed) Vent. rate has decreased by 47 bpm Confirmed by Piotr De La Vega ([id number]) on 11/25/2023 3:30:34 PM Referred By: [email or web address] armando [facility] Confirmed By: Piotr De La Vega
--- NOTE | 2023-11-25 15:31 | Electrocardiogram Report ---
Test Reason : Blood Pressure : */* mmHG Vent. Rate : 68 BPM Atrial Rate : 68 BPM P-R Int : 156 ms QRS Dur : 148 ms QT Int : 556 ms P-R-T Axes : 52 -72 -64 degrees QTcB Int : 591 ms Normal sinus rhythm Right bundle branch block Left anterior fascicular block Bifascicular block Moderate voltage criteria for LVH, may be normal variant Cannot rule out Septal infarct (cited on or before 24-Nov-2023) T wave abnormality, consider inferior ischemia Abnormal ECG When compared with ECG of 25-Nov-2023 04:40, (unconfirmed) No significant change Confirmed by Piotr De La Vega ([id number]) on 11/25/2023 3:31:15 PM Referred By: [facility] Confirmed By: Piotr De La Vega
[2023-11-25] MEDS ORDERED: KETAMINE HCL INJ 50 MG/ML 10 ML VIAL IV ONE (16:13)
[2023-11-25] MEDS ORDERED: SUCCINYLCHOLINE CHLORIDE 20 MG/ML 10 ML VIAL IV ONE (16:13)
[2023-11-25] MEDS: ICU ELECTROLYTE REPLACEMENT PROTOCOL SCH (17:09)
[2023-11-25] MEDS: fentaNYL BOLUS from BAG IV PRN (17:24)
[2023-11-25 20:03] LABS: iSTAT Allen Test Pass; iSTAT Art Bld Gas pCO2 Correct 34 mmHg (35-46); iSTAT Art Bld Gas pH Corrected 7.454 (7.35-7.45); iSTAT Arterial Blood Gas HCO3 24 meg/L (19-24); iSTAT Arterial Blood Gas pCO2 35 mmHg (35-46); iSTAT Arterial Blood Gas pH 7.45 (7.35-7.45); iSTAT Arterial Blood Gas pO2 51 mmHg (80-95); iSTAT Arterial Blood Gas pO2 C 49; iSTAT Carbon Dioxide 25 mmol/L (24-31); iSTAT FiO2 80 %; iSTAT Hematocrit 33 % (37-47); iSTAT Hemoglobin 11.2 g/dl (12.0-16.0); iSTAT Potassium 3.2 mmol/L (3.3-5.0); iSTAT Site L Radial; iSTAT Sodium 136 mmol/L (135-144)
[2023-11-25] MEDS ORDERED: SODIUM CHLORIDE 0.9% 500 ML BAG IV STA (23:24)
[2023-11-25] MEDS: dexMEDEtomidine 200 MCG/50 ML BAG IV SCH (23:39)
[2023-11-25] MEDS: SODIUM CHLORIDE 0.9% 500 ML IV SCH (23:41)
[2023-11-26 04:09] LABS: Basophils # (auto) 0.04 K/uL (0.00-0.20); Basophils % (auto) 0.2 %; Eosinophils # (auto) 0.02 K/uL (0.00-0.50); Eosinophils % (auto) 0.1 %; Hematocrit (blood only) 33.8 % (37.0-47.0); Hemoglobin 10.8 g/dl (12.0-16.0); Immature Granulocytes # (auto) 0.12 K/uL (0.01-0.20); Immature Granulocytes % (auto) 0.6 %; Lymphocytes # (auto) 2.97 K/uL (1.20-3.40); Lymphocytes % (auto) 15.3 %; Mean Corpuscular Hemoglobin 27.6 pg (25.0-34.0); Mean Corpuscular Volume 86.2 fL (80.0-100.0); Mean Platelet Volume 10.5 fL (9.4-12.4); Monocytes % (auto) 6.2 %; Neutrophils # (auto) 15.11 K/uL (1.40-6.50); Neutrophils % (auto) 77.6 %; Platelet Count 294 K/uL (130-400); RDW Coefficient of Variation 15.1 % (11.5-14.5); RDW Standard Deviation 47.6 fL (36.4-46.3); Red Blood Count 3.92 M/uL (4.20-5.40); White Blood Count 19.46 K/ul (4.8-10.8)
[2023-11-26 04:26] LABS: iSTAT Allen Test Pass; iSTAT Art Bld Gas pCO2 Correct 33 mmHg (35-46); iSTAT Arterial Blood Gas HCO3 24 meg/L (19-24); iSTAT Arterial Blood Gas pCO2 34 mmHg (35-46); iSTAT Arterial Blood Gas pH 7.46 (7.35-7.45); iSTAT Arterial Blood Gas pO2 87 mmHg (80-95); iSTAT Arterial Blood Gas pO2 C 85; iSTAT Carbon Dioxide 25 mmol/L (24-31); iSTAT FiO2 50 %; iSTAT Hematocrit 33 % (37-47); iSTAT Hemoglobin 11.2 g/dl (12.0-16.0); iSTAT Potassium 3.3 mmol/L (3.3-5.0); iSTAT Site L Radial; iSTAT Sodium 135 mmol/L (135-144)
[2023-11-26 04:30] LABS: INR 1.1 (0.9-1.1); Partial Thromboplastin Ratio 1.2; Partial Thromboplastin Time 32 Seconds (21-31); Prothrombin Time 11.4 Seconds (9.0-12.0)
[2023-11-26 04:33] LABS: Albumin Globulin Ratio 0.9 (0.9-2); Albumin Level 2.9 gm/dl (3.4-5.0); BUN Creatinine Ratio 38.9 (10-20); Bilirubin,Total 0.4 mg/dl (0.2-1.0); Calcium 8.1 mg/dl (8.6-10.3); Creatinine Clr Calc Pharmacy 85.5 ml/min; Globulin 3.2 gm/dl (2.5-4.0); Magnesium 2.3 mg/dl (1.7-2.4); Potassium 3.2 mmol/L (3.5-5.1); Total Protein 6.1 gm/dl (6.0-8.3)
[2023-11-26] MEDS: POTASSIUM CHLORIDE 20 MEQ/15 ML UDC PO SCH (05:57)
--- NOTE | 2023-11-26 08:19 | Critical Care Progress Note ---
Date of Service November 26, 2023 Assessment & Plan (1) Acute hypoxic respiratory failure: (2) Multifocal pneumonia: (3) UTI (urinary tract infection): (4) Septic shock: Plan #Acute hypoxemic/hypercapneic respiratory failure #Multifocal pneumonia #Metabolic encephalopathy 2/2 hypercapnia #Septic vs vasoplegic shock #UTI #NSTEMI, type I vs type II Neurologic Propofol and fentanyl for RASS goal 0 to -1 Hold home morphine Cardiovascular --Prolonged QTc QTc 649 Avoid QT prolonging medication Trend troponin, does have some inferolateral T-wave inversions on admit EKG. Echo 11/25/2023: EF 55-60%, RV not well-visualized, mild concentric LVH Respiratory -- VDRF Likely secondary to hypercapnic respiratory failure Continue with ventilatory support Keep RASS -1 Daily sedation holidays and SBT's Chlorhexidine mouthwash Gastrointestinal/Nutrition No acute issues Endocrine ICU hypoglycemia protocol Infectious disease -- Gram-negative bacilli in the urine Continue with antibiotics BC x2 pending, Sputum pending, UCx pending, MRSA pending Renal/Electrolytes Monitor BUNs/creatinine Avoid nephrotoxic medications Heme/Onc No acute concerns --Prophylaxis VTE: Lovenox GI: Pantoprazole Lines: Peripheral Diet: Tube feeds Plan: In/out: +1873, urine output 762 Potassium being replaced Urine culture is growing gram-negative bacilli, continue with Zosyn Trial of extubation today to BiPAP Given the prolonged QTc, I am going to stop her anxiety medications Replete the potassium and repeat EKG later today, will repeat EKG early in the morning as well I have personally spent 36 minutes of critical care time in the direct management of this patient. This is a life/limb threatening event. This includes time spent evaluating patient, direct bedside care, chart review, placing orders, interpretation of diagnostic studies, discussion with consultants, patient, and family members, as well as other required patient management activities. This time is exclusive of all separately billable procedures, and teaching time and separate from and in addition to any other critical care service time. Please note the above document was generated using voice recognition software. It may contain grammatical, syntax or spelling errors. Admission and Anticipated Discharge Date Admission Date: November 25, 2023 Subjective Patient seen and examined at bedside. No acute distress, notable symptoms overnight She was on 10 of propofol, 50 of fentanyl and 0.4 of Precedex at the time of examination MAP was in the low 80s. She was somnolent but easily arousable Following commands Denied any headache, no chest pain No belly pain Review of Systems 2 Review of Systems: All systems reviewed & are unremarkable except as noted in Subjective and Unobtainable due to endotracheal tube Physical Exam 2 Physical Exam: Constitutional: No acute distress HEENT: EOMI, PERRLA Respiratory system: Good air entry bilaterally, no wheeze, no rhonchi, mild crackles bilateral lower lobes CVS: S1-S2 positive, no murmurs or gallops Abdomen: Soft, nontender, nondistended, positive bowel sounds x4 Extremities: +2 pulses bilaterally radialis/ dorsalis pedis, no cyanosis, no edema Neuro: RASS -1, moving all extremities spontaneously, following commands Psych: Normal mood and affect G/U: Positive Jung Skin: no rashes, warm and dry Lymphatic: no cervical or axillary lymphadenopathy Results & Data Results & Data Vital Signs (Past 12 Hours) Vital Signs Temp Pulse Resp BP Pulse Ox O2 Del Method FiO2 11/26/23 08:00 50 11/26/23 08:00 Mechanical Vent 11/26/23 07:33 64 18 95 50 11/26/23 06:49 52 L 11/26/23 06:00 120/58 L 11/26/23 06:00 36.9 C 51 L 18 94 Mechanical Vent 50 11/26/23 05:45 37.0 C 50 L 18 94 Mechanical Vent 50 11/26/23 05:45 119/58 L 11/26/23 05:33 37.0 C 51 L 18 97 Mechanical Vent 50 11/26/23 05:32 123/56 L 11/26/23 05:32 123/56 L 11/26/23 05:32 123/56 L 11/26/23 05:25 102/51 L 11/26/23 05:25 102/51 L 11/26/23 05:18 36.9 C 51 L 18 100 11/26/23 05:17 79/48 L 11/26/23 05:17 79/48 L 11/26/23 05:17 79/48 L 11/26/23 05:17 79/48 L 11/26/23 05:12 36.9 C 51 L 18 100 Mechanical Vent 50 11/26/23 05:00 36.9 C 53 L 18 91 Mechanical Vent 50 11/26/23 05:00 83/42 L 11/26/23 05:00 83/42 L 11/26/23 04:00 36.6 C 48 L 18 95 Mechanical Vent 50 11/26/23 04:00 130/62 11/26/23 04:00 130/62 11/26/23 04:00 50 11/26/23 03:45 98/48 L 11/26/23 03:45 98/48 L 11/26/23 03:39 36.6 C 50 L 18 95 11/26/23 03:36 36.6 C 51 L 18 94 11/26/23 03:30 123/64 11/26/23 03:30 123/64 11/26/23 03:00 141/67 H 11/26/23 02:57 36.4 C L 53 L 18 95 Mechanical Vent 70 11/26/23 02:45 139/66 11/26/23 02:39 36.3 C L 54 L 18 96 Mechanical Vent 70 11/26/23 02:30 163/74 H 11/26/23 02:30 163/74 H 11/26/23 02:30 36.3 C L 52 L 18 97 Mechanical Vent 70 11/26/23 02:30 163/74 H 11/26/23 02:24 36.3 C L 46 L 18 95 Mechanical Vent 70 11/26/23 02:11 52 L 19 100 50 11/26/23 02:00 36.2 C L 51 L 18 100 Mechanical Vent 70 11/26/23 02:00 89/49 L 11/26/23 02:00 89/49 L 11/26/23 02:00 89/49 L 11/26/23 01:24 36.1 C L 51 L 18 100 Mechanical Vent 70 11/26/23 00:09 35.9 C L 57 L 18 100 Mechanical Vent 70 11/26/23 00:00 135/64 11/26/23 00:00 70 11/26/23 00:00 63 11/25/23 23:39 36.1 C L 61 18 100 11/25/23 23:30 36.2 C L 61 18 100 11/25/23 23:30 128/66 11/25/23 23:30 128/66 11/25/23 23:30 128/66 11/25/23 23:03 36.2 C L 70 18 96 11/25/23 23:01 63 19 100 70 11/25/23 23:00 122/67 11/25/23 23:00 122/67 11/25/23 23:00 122/67 Mechanical Vent 70 11/25/23 22:30 114/65 11/25/23 22:18 36.3 C L 63 18 95 11/25/23 22:03 36.4 C L 63 18 99 11/25/23 22:00 117/66 Mechanical Vent 80 11/25/23 21:30 95/59 L 11/25/23 21:18 36.4 C L 61 18 91 11/25/23 21:15 36.4 C L 62 18 91 Mechanical Vent 80 11/25/23 20:30 116/67 11/25/23 20:30 116/67 11/25/23 20:30 116/67 11/25/23 20:24 36.4 C L 63 18 94 Laboratory Results 11/26/23 03:38 11/26/23 03:38 Coding Level of Care Code 17838 CRITICAL CARE 1ST 30-74M Diagnoses Acute hypoxic respiratory failure J96.01 Multifocal pneumonia J18.9 UTI (urinary tract infection) N39.0 Septic shock A41.9; R65.21
[2023-11-26] MEDS: ALBUMIN 5% 250 ML IV ONE (09:12)
[2023-11-26] MEDS: DIVALPROEX SODIUM SPRINKLE/DEL-REL 125 MG CAP PO SCH (09:12)
[2023-11-26] MEDS: VENLAFAXINE HCL 37.5 MG TAB PO SCH (09:12)
[2023-11-26 10:39] LABS: Phosphorus 3.1 mg/dl (2.5-4.9)
--- NOTE | 2023-11-26 11:32 | Electrocardiogram Report ---
Test Reason : Blood Pressure : */* mmHG Vent. Rate : 50 BPM Atrial Rate : 50 BPM P-R Int : 150 ms QRS Dur : 146 ms QT Int : 710 ms P-R-T Axes : 57 -66 -87 degrees QTcB Int : 647 ms Sinus bradycardia Possible Left atrial enlargement Right bundle branch block Left anterior fascicular block Bifascicular block Left ventricular hypertrophy Cannot rule out Septal infarct (cited on or before 24-Nov-2023) Marked T-wave abnormality, consider inferolateral ischemia Prolonged QT Abnormal ECG When compared with ECG of 25-Nov-2023 10:19, Significant changes have occurred Confirmed by Piotr De La Vega ([id number]) on 11/26/2023 11:32:24 AM Referred By: [facility] Confirmed By: Piotr De La Vega
--- NOTE | 2023-11-26 14:23 | Electrocardiogram Report ---
Test Reason : Blood Pressure : */* mmHG Vent. Rate : 73 BPM Atrial Rate : 73 BPM P-R Int : 150 ms QRS Dur : 144 ms QT Int : 528 ms P-R-T Axes : 54 -57 -40 degrees QTcB Int : 581 ms Normal sinus rhythm Possible Left atrial enlargement Right bundle branch block Left anterior fascicular block Bifascicular block Left ventricular hypertrophy Cannot rule out Anteroseptal infarct (cited on or before 24-Nov-2023) T wave abnormality, consider inferolateral ischemia Abnormal ECG When compared with ECG of 26-Nov-2023 05:24, T wave abnormality less pronounced Confirmed by Piotr De La Vega ([id number]) on 11/26/2023 2:23:08 PM Referred By: Jonnathan [facility] Confirmed By: Piotr De La Vega
--- NOTE | 2023-11-26 17:08 | Hospitalist Progress Note ---
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 Admission and Anticipated Discharge Date Admission Date: November 25, 2023 Subjective Patient seen and examined at bedside. extubated onBipap easily arousable, Following commands Denied any headache, no chest pain Physical Exam Physical Exam: cardiac exam is regular lungs are coarse and consistent with ventilated lungs abd is soft Results & Data Results & Data Vital Signs (Past 12 Hours) Vital Signs Temp Pulse Resp BP Pulse Ox O2 Del Method FiO2 11/26/23 15:43 81 24 100 30 11/26/23 14:45 131/80 11/26/23 14:45 131/80 11/26/23 14:45 131/80 11/26/23 14:33 99.3 F 75 26 H 92 11/26/23 14:30 99.3 F 76 26 H 92 11/26/23 14:30 141/71 H 11/26/23 14:30 141/71 H 11/26/23 14:30 141/71 H 11/26/23 14:15 137/74 11/26/23 14:15 137/74 11/26/23 14:06 99.3 F 76 29 H 92 11/26/23 14:03 99.3 F 74 28 H 91 11/26/23 14:00 138/76 11/26/23 14:00 138/76 11/26/23 13:45 138/77 11/26/23 13:36 99.1 F 83 16 89 L 11/26/23 13:32 122/58 L 10/10/24 13:24 99.0 F 74 20 84 L 11/26/23 13:15 135/83 11/26/23 13:15 135/83 11/26/23 13:15 135/83 11/26/23 13:09 99.0 F 75 37 H 96 11/26/23 13:00 133/67 11/26/23 12:57 98.8 F 74 24 92 11/26/23 12:45 121/71 11/26/23 12:33 98.8 F 72 25 H 93 11/26/23 12:30 126/73 11/26/23 12:30 126/73 11/26/23 12:27 98.6 F 70 30 H 93 11/26/23 12:15 116/64 11/26/23 12:15 116/64 11/26/23 12:12 98.6 F 71 18 95 11/26/23 12:00 124/67 11/26/23 12:00 98.4 F 68 23 99 11/26/23 11:30 114/68 11/26/23 11:30 98.4 F 71 26 H 94 11/26/23 11:15 98.4 F 68 25 H 94 11/26/23 11:15 113/67 11/26/23 11:15 113/67 11/26/23 11:01 113/66 11/26/23 11:00 98.4 F 70 27 H 96 11/26/23 10:30 110/63 11/26/23 10:30 110/63 11/26/23 10:27 98.4 F 71 26 H 97 11/26/23 10:15 111/64 11/26/23 10:12 98.6 F 68 21 96 11/26/23 10:06 98.6 F 70 19 95 11/26/23 10:00 108/67 11/26/23 09:54 98.6 F 67 18 95 11/26/23 09:50 66 17 96 30 11/26/23 09:45 115/77 11/26/23 09:45 115/77 11/26/23 09:39 98.6 F 68 30 H 94 11/26/23 09:31 116/61 11/26/23 09:31 116/61 11/26/23 09:31 116/61 11/26/23 09:24 98.8 F 71 21 97 11/26/23 09:15 97/59 L 11/26/23 09:15 98.6 F 65 14 98 11/26/23 09:12 98.6 F 62 18 98 11/26/23 09:00 102/59 L 11/26/23 09:00 102/59 L 11/26/23 08:47 98.6 F 57 L 11 L 97 11/26/23 08:45 122/62 11/26/23 08:42 97/66 L 11/26/23 08:32 98.6 F 53 L 18 93 11/26/23 08:30 98/54 L 11/26/23 08:30 98/54 L 11/26/23 08:15 97/58 L 11/26/23 08:15 97/58 L 11/26/23 08:14 98.6 F 57 L 18 93 11/26/23 08:02 98.6 F 61 18 94 11/26/23 08:00 115/61 11/26/23 08:00 115/61 11/26/23 08:00 115/61 11/26/23 08:00 50 11/26/23 08:00 Mechanical Vent 11/26/23 07:45 137/71 11/26/23 07:45 137/71 11/26/23 07:45 137/71 11/26/23 07:44 98.6 F 61 20 99 11/26/23 07:33 105/61 11/26/23 07:33 105/61 11/26/23 07:33 105/61 11/26/23 07:33 105/61 11/26/23 07:33 64 18 95 50 11/26/23 07:30 Mechanical Vent 50 11/26/23 07:30 92/51 L 11/26/23 07:26 98.4 F 52 L 18 90 11/26/23 07:15 101/59 L 11/26/23 07:15 101/59 L 11/26/23 07:11 98.4 F 62 18 97 11/26/23 06:56 98.4 F 52 L 18 94 11/26/23 06:49 52 L 11/26/23 06:45 114/62 11/26/23 06:45 114/62 11/26/23 06:00 120/58 L 11/26/23 06:00 98.4 F 51 L 18 94 Mechanical Vent 50 11/26/23 05:45 98.6 F 50 L 18 94 Mechanical Vent 50 11/26/23 05:45 119/58 L 11/26/23 05:33 98.6 F 51 L 18 97 Mechanical Vent 50 11/26/23 05:32 123/56 L 11/26/23 05:32 123/56 L 11/26/23 05:32 123/56 L 11/26/23 05:25 102/51 L 11/26/23 05:25 102/51 L 11/26/23 05:18 98.4 F 51 L 18 100 11/26/23 05:17 79/48 L 11/26/23 05:17 79/48 L 11/26/23 05:17 79/48 L 11/26/23 05:17 79/48 L 11/26/23 05:12 98.4 F 51 L 18 100 Mechanical Vent 50 Laboratory Results review cbc review chemistry PG Care Time/CCT Total # of Minutes Spent Total Time Spent with Patient: Total time spent is greater than 50% in coordination of care (as documented) at patient's floor/unit and/or counseling patient: Coding Level of Care Code 69256 SUB INP/OBS CARE 2/35MIN Diagnoses Multifocal pneumonia J18.9 History of psychosis Z86.59
[2023-11-26] MEDS ORDERED: MIRTAZAPINE SOLTAB 15 MG PO SCH (21:00)
[2023-11-26] MEDS: ARIPIprazole 1 MG/ML ORAL SOLN 150 ML BTL PO SCH (21:14)
[2023-11-27 08:08] LABS: Basophils # (auto) 0.04 K/uL (0.00-0.20); Basophils % (auto) 0.3 %; Eosinophils # (auto) 0.39 K/uL (0.00-0.50); Hematocrit (blood only) 35.4 % (37.0-47.0); Immature Granulocytes # (auto) 0.06 K/uL (0.01-0.20); Immature Granulocytes % (auto) 0.5 %; Lymphocytes % (auto) 21.2 %; Mean Corpuscular Hgb Conc 31.1 g/dL (32.0-36.0); Mean Platelet Volume 10.2 fL (9.4-12.4); Monocytes # (auto) 1.63 K/uL (0.11-0.59); Monocytes % (auto) 12.3 %; Neutrophils % (auto) 62.7 %; Platelet Count 262 K/uL (130-400); RDW Coefficient of Variation 15.3 % (11.5-14.5); RDW Standard Deviation 48.7 fL (36.4-46.3); Red Blood Count 4.07 M/uL (4.20-5.40); White Blood Count 13.22 K/ul (4.8-10.8)
--- NOTE | 2023-11-27 08:08 | Critical Care Progress Note ---
Date of Service November 27, 2023 Assessment & Plan (1) Acute hypoxic respiratory failure: (2) Multifocal pneumonia: (3) UTI (urinary tract infection): (4) Septic shock: Plan Neurologic Propofol and fentanyl for RASS goal 0 to -1 Hold home morphine Cardiovascular --Prolonged QTc QTc 649 --> repeat EKG 11/27/2023 QTc 510 Avoid QT prolonging medication Trend troponin, does have some inferolateral T-wave inversions on admit EKG. Echo 11/25/2023: EF 55-60%, RV not well-visualized, mild concentric LVH Respiratory -- VDRF Extubated 11/26/2023 Keep O2 saturation between 90-92% Gastrointestinal/Nutrition No acute issues Endocrine ICU hypoglycemia protocol Infectious disease -- E. coli in the urine Pansensitive Continue with antibiotics Renal/Electrolytes Monitor BUNs/creatinine Avoid nephrotoxic medications Heme/Onc No acute concerns --Prophylaxis VTE: Lovenox GI: Pantoprazole Lines: Peripheral Diet: Tube feeds Plan: In/out: -1.2 L, urine output 1909 Change Zosyn to Rocephin and complete the course for total of 7 days QTc has improved to 510 today, it is still prolonged but better than yesterday Patient hemodynamically stable to be downgrade to medical floor, case discussed with primary team Please note the above document was generated using voice recognition software. It may contain grammatical, syntax or spelling errors.Any formal questions or concerns about the content, text or information contained within the body of this dictation should be directly addressed to the provider for clarification. Admission and Anticipated Discharge Date Admission Date: November 25, 2023 Subjective Patient seen and examined at bedside. No acute distress, no adverse events overnight She was on nasal cannula 2 L saturating 88% while sleeping, on waking her up she went up to 100% She has little bit of slurred sleep but she was answering all the questions appropriately As per the nurse patient has been having bouts of agitation which I think goes along with her psych history Denied any chest pain, no abdominal pain No nausea vomiting Was asking when she can go home Review of Systems Review of Systems: All systems reviewed & are unremarkable except as noted in Subjective Physical Exam Physical Exam: Constitutional: No acute distress HEENT: EOMI, PERRLA slurred speech Respiratory system: Good air entry bilaterally, no wheeze, no rhonchi, mild crackles bilateral lower lobes CVS: S1-S2 positive, no murmurs or gallops Abdomen: Soft, nontender, nondistended, positive bowel sounds x4 Extremities: +2 pulses bilaterally radialis/ dorsalis pedis, no cyanosis, no edema Neuro: Awake alert oriented to self and place Psych: Normal mood and affect G/U: Positive Jung Skin: no rashes, warm and dry Lymphatic: no cervical or axillary lymphadenopathy Results & Data Results & Data Vital Signs (Past 12 Hours) Vital Signs Temp Pulse Resp BP Pulse Ox O2 Del Method O2 Flow Rate 11/27/23 06:15 37.1 C 78 25 H 92 11/27/23 06:15 105/75 11/27/23 06:00 140/97 11/27/23 06:00 140/97 11/27/23 06:00 37.1 C 79 31 H 98 11/27/23 05:45 167/91 H 11/27/23 05:45 167/91 H 11/27/23 05:30 171/96 H 11/27/23 05:30 37.1 C 73 25 H 100 11/27/23 05:15 135/97 11/27/23 05:15 135/97 11/27/23 05:12 37.1 C 73 24 100 11/27/23 05:03 37.2 C 77 27 H 95 11/27/23 05:00 144/61 H 11/27/23 05:00 144/61 H 11/27/23 05:00 144/61 H 11/27/23 04:45 140/76 11/27/23 04:39 37.2 C 92 H 24 95 11/27/23 04:30 150/63 H 11/27/23 04:15 37.1 C 78 26 H 98 11/27/23 04:00 169/88 H 11/27/23 04:00 169/88 H 11/27/23 04:00 169/88 H 11/27/23 04:00 37.2 C 83 24 98 11/27/23 03:45 37.1 C 72 27 H 100 11/27/23 03:45 140/59 L 11/27/23 03:30 134/71 11/27/23 03:30 134/71 11/27/23 03:21 37.2 C 77 21 97 11/27/23 03:18 37.2 C 82 25 H 93 11/27/23 03:15 153/85 H 11/27/23 03:15 153/85 H 11/27/23 03:06 37.2 C 77 24 100 11/27/23 03:00 157/82 H 11/27/23 03:00 37.2 C 77 28 H 100 Nasal Cannula 2 11/27/23 02:45 156/75 H 11/27/23 02:39 37.2 C 76 28 H 96 11/27/23 02:30 157/83 H 11/27/23 02:30 157/83 H 11/27/23 02:30 37.2 C 81 27 H 97 11/27/23 02:15 37.2 C 87 23 100 11/27/23 02:15 156/80 H 11/27/23 02:15 156/80 H 11/27/23 02:09 37.2 C 77 28 H 95 11/27/23 01:45 139/80 11/27/23 01:45 139/80 11/27/23 01:42 37.2 C 82 26 H 98 11/27/23 01:30 37.3 C 81 27 H 95 11/27/23 01:30 156/94 H 11/27/23 01:30 156/94 H 11/27/23 01:30 156/94 H 11/27/23 01:21 37.3 C 82 26 H 99 11/27/23 01:00 142/71 H 11/27/23 01:00 142/71 H 11/27/23 00:48 37.4 C 82 28 H 98 11/27/23 00:45 142/109 H 11/27/23 00:45 142/109 H 11/27/23 00:45 142/109 H 11/27/23 00:21 37.4 C 76 32 H 100 11/27/23 00:15 165/85 H 11/27/23 00:00 37.5 C 81 26 H 100 11/27/23 00:00 157/84 H 11/27/23 00:00 157/84 H 11/27/23 00:00 80 11/26/23 23:45 136/73 11/26/23 23:45 136/73 11/26/23 23:45 37.5 C 79 22 97 11/26/23 23:30 37.5 C 76 21 96 Nasal Cannula 2 11/26/23 23:30 150/81 H 11/26/23 23:30 150/81 H 11/26/23 23:30 150/81 H 11/26/23 23:30 150/81 H 11/26/23 23:30 150/81 H 11/26/23 23:15 128/77 11/26/23 23:15 128/77 11/26/23 23:15 128/77 11/26/23 23:15 128/77 11/26/23 23:12 37.4 C 78 18 97 11/26/23 22:45 147/63 H 11/26/23 22:45 147/63 H 11/26/23 22:45 37.4 C 79 14 99 11/26/23 22:30 156/77 H 11/26/23 22:30 156/77 H 11/26/23 22:16 166/88 H 11/26/23 22:12 37.5 C 77 20 95 11/26/23 22:09 37.5 C 78 20 86 L 11/26/23 22:00 158/109 H 11/26/23 22:00 158/109 H 11/26/23 21:57 37.6 C H 83 30 H 99 11/26/23 21:52 BiPAP 11/26/23 21:48 37.6 C H 83 24 100 11/26/23 21:45 162/76 H 11/26/23 21:45 162/76 H 11/26/23 21:30 163/82 H 11/26/23 21:30 163/82 H 11/26/23 21:15 161/82 H 11/26/23 21:15 161/82 H 11/26/23 21:12 37.6 C H 76 28 H 100 11/26/23 21:00 168/85 H 11/26/23 21:00 168/85 H 11/26/23 20:57 37.6 C H 81 25 H 100 11/26/23 20:45 143/64 H 11/26/23 20:45 143/64 H 11/26/23 20:45 37.5 C 82 22 100 11/26/23 20:30 153/119 H 11/26/23 20:27 37.6 C H 84 27 H 100 FiO2 11/27/23 06:15 11/27/23 06:15 11/27/23 06:00 11/27/23 06:00 11/27/23 06:00 11/27/23 05:45 11/27/23 05:45 11/27/23 05:30 11/27/23 05:30 11/27/23 05:15 11/27/23 05:15 11/27/23 05:12 11/27/23 05:03 11/27/23 05:00 11/27/23 05:00 11/27/23 05:00 11/27/23 04:45 11/27/23 04:39 11/27/23 04:30 11/27/23 04:15 11/27/23 04:00 11/27/23 04:00 11/27/23 04:00 11/27/23 04:00 11/27/23 03:45 11/27/23 03:45 11/27/23 03:30 11/27/23 03:30 11/27/23 03:21 11/27/23 03:18 11/27/23 03:15 11/27/23 03:15 11/27/23 03:06 11/27/23 03:00 11/27/23 03:00 11/27/23 02:45 11/27/23 02:39 11/27/23 02:30 11/27/23 02:30 11/27/23 02:30 11/27/23 02:15 11/27/23 02:15 11/27/23 02:15 11/27/23 02:09 11/27/23 01:45 11/27/23 01:45 11/27/23 01:42 11/27/23 01:30 11/27/23 01:30 11/27/23 01:30 11/27/23 01:30 11/27/23 01:21 11/27/23 01:00 11/27/23 01:00 11/27/23 00:48 11/27/23 00:45 11/27/23 00:45 11/27/23 00:45 11/27/23 00:21 11/27/23 00:15 11/27/23 00:00 11/27/23 00:00 11/27/23 00:00 11/27/23 00:00 11/26/23 23:45 11/26/23 23:45 11/26/23 23:45 11/26/23 23:30 11/26/23 23:30 11/26/23 23:30 11/26/23 23:30 11/26/23 23:30 11/26/23 23:30 11/26/23 23:15 11/26/23 23:15 11/26/23 23:15 11/26/23 23:15 11/26/23 23:12 11/26/23 22:45 11/26/23 22:45 11/26/23 22:45 11/26/23 22:30 11/26/23 22:30 11/26/23 22:16 11/26/23 22:12 11/26/23 22:09 11/26/23 22:00 11/26/23 22:00 11/26/23 21:57 11/26/23 21:52 30 11/26/23 21:48 11/26/23 21:45 11/26/23 21:45 11/26/23 21:30 11/26/23 21:30 11/26/23 21:15 11/26/23 21:15 11/26/23 21:12 11/26/23 21:00 11/26/23 21:00 11/26/23 20:57 11/26/23 20:45 11/26/23 20:45 11/26/23 20:45 11/26/23 20:30 11/26/23 20:27 Coding Level of Care Code 72069 SUB INP/OBS CARE 3/50MIN Diagnoses Acute hypoxic respiratory failure J96.01 Multifocal pneumonia J18.9 UTI (urinary tract infection) N39.0 Septic shock A41.9; R65.21
[2023-11-27 08:20] LABS: INR 1.1 (0.9-1.1); Partial Thromboplastin Time 28 Seconds (21-31); Prothrombin Time 11.7 Seconds (9.0-12.0)
[2023-11-27 08:35] LABS: Albumin Level 3.2 gm/dl (3.4-5.0); BUN Creatinine Ratio 26.2 (10-20); Bilirubin,Total 0.7 mg/dl (0.2-1.0); Calcium 8.3 mg/dl (8.6-10.3); Creatinine Clr Calc Pharmacy 71.1 ml/min; Globulin 3.1 gm/dl (2.5-4.0); Total Protein 6.3 gm/dl (6.0-8.3); Troponin I High Sensitivity 32.7 pg/ml (0-14)
[2023-11-27] MEDS: cefTRIAXone SODIUM 2,000 MG/50 ML BAG IV SCH (14:09)
--- NOTE | 2023-11-27 14:46 | Hospitalist Progress Note ---
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 Admission and Anticipated Discharge Date Admission Date: November 25, 2023 Subjective pt is extubated and sedated, she is taking some po, has pulmonary stability but is with metabolic encephalopathy Physical Exam Physical Exam: cardiac exam is regular lungs are coarse and good air movement bilaterally abd is soft Results & Data Results & Data Vital Signs (Past 12 Hours) Vital Signs Temp Pulse Resp BP Pulse Ox O2 Del Method O2 Flow Rate 11/27/23 13:00 99.1 F 78 16 100 11/27/23 13:00 154/75 H 11/27/23 13:00 154/75 H 11/27/23 12:18 99.0 F 72 32 H 94 11/27/23 12:12 152/94 H 11/27/23 12:12 152/94 H 11/27/23 11:54 99.1 F 76 28 H 94 11/27/23 11:03 99.5 F 77 36 H 91 11/27/23 10:03 Room Air 11/27/23 10:00 98.6 F 78 24 99 11/27/23 09:15 99.1 F 79 21 97 11/27/23 09:00 155/71 H 11/27/23 08:57 99.0 F 74 30 H 94 11/27/23 08:00 74 11/27/23 08:00 99.0 F 78 23 96 11/27/23 08:00 154/74 H 11/27/23 08:00 Room Air 11/27/23 07:55 140/92 11/27/23 07:54 99.0 F 80 19 99 11/27/23 07:45 160/80 H 11/27/23 07:45 160/80 H 11/27/23 07:45 160/80 H 11/27/23 07:33 98.8 F 84 16 91 11/27/23 07:30 147/68 H 11/27/23 07:30 147/68 H 11/27/23 07:30 147/68 H 11/27/23 07:27 98.8 F 80 16 95 11/27/23 07:15 158/89 H 11/27/23 07:15 158/89 H 11/27/23 07:09 98.8 F 81 24 93 11/27/23 07:00 136/76 11/27/23 07:00 136/76 11/27/23 06:57 98.8 F 75 26 H 95 11/27/23 06:48 98.8 F 76 26 H 93 11/27/23 06:45 147/121 H 11/27/23 06:45 147/121 H 11/27/23 06:15 98.8 F 78 25 H 92 11/27/23 06:15 105/75 11/27/23 06:00 140/97 11/27/23 06:00 140/97 11/27/23 06:00 98.8 F 79 31 H 98 11/27/23 05:45 167/91 H 11/27/23 05:45 167/91 H 11/27/23 05:30 171/96 H 11/27/23 05:30 98.8 F 73 25 H 100 11/27/23 05:15 135/97 11/27/23 05:15 135/97 11/27/23 05:12 98.8 F 73 24 100 11/27/23 05:03 99.0 F 77 27 H 95 11/27/23 05:00 144/61 H 11/27/23 05:00 144/61 H 11/27/23 05:00 144/61 H 11/27/23 04:45 140/76 11/27/23 04:39 99.0 F 92 H 24 95 11/27/23 04:30 150/63 H 11/27/23 04:15 98.8 F 78 26 H 98 11/27/23 04:00 169/88 H 11/27/23 04:00 169/88 H 11/27/23 04:00 169/88 H 11/27/23 04:00 99.0 F 83 24 98 11/27/23 03:45 98.8 F 72 27 H 100 11/27/23 03:45 140/59 L 11/27/23 03:30 134/71 11/27/23 03:30 134/71 11/27/23 03:21 99.0 F 77 21 97 11/27/23 03:18 99.0 F 82 25 H 93 11/27/23 03:15 153/85 H 11/27/23 03:15 153/85 H 11/27/23 03:06 99.0 F 77 24 100 11/27/23 03:00 157/82 H 11/27/23 03:00 99.0 F 77 28 H 100 Nasal Cannula 2 11/27/23 02:45 156/75 H PG Care Time/CCT Total # of Minutes Spent Total Time Spent with Patient: Total time spent is greater than 50% in coordination of care (as documented) at patient's floor/unit and/or counseling patient: Coding Level of Care Code 03272 SUB INP/OBS CARE 2/35MIN Diagnoses Multifocal pneumonia J18.9 History of psychosis Z86.59
[2023-11-27] MEDS: ACETAMINOPHEN 1000 MG/100 ML IV IV PRN (17:31)
[2023-11-28] MEDS: OLANZapine 10 MG/2.1 ML SDV IM STA (01:01)
[2023-11-28 03:50] LABS: Basophils # (auto) 0.06 K/uL (0.00-0.20); Basophils % (auto) 0.5 %; Eosinophils # (auto) 0.63 K/uL (0.00-0.50); Eosinophils % (auto) 4.8 %; Hematocrit (blood only) 36.8 % (37.0-47.0); Hemoglobin 11.6 g/dl (12.0-16.0); Immature Granulocytes # (auto) 0.08 K/uL (0.01-0.20); Immature Granulocytes % (auto) 0.6 %; Lymphocytes # (auto) 2.56 K/uL (1.20-3.40); Lymphocytes % (auto) 19.7 %; Mean Corpuscular Hemoglobin 27.3 pg (25.0-34.0); Mean Corpuscular Hgb Conc 31.5 g/dL (32.0-36.0); Mean Corpuscular Volume 86.6 fL (80.0-100.0); Mean Platelet Volume 9.9 fL (9.4-12.4); Monocytes # (auto) 1.46 K/uL (0.11-0.59); Monocytes % (auto) 11.2 %; Neutrophils # (auto) 8.21 K/uL (1.40-6.50); Neutrophils % (auto) 63.2 %; Platelet Count 277 K/uL (130-400); RDW Coefficient of Variation 15.3 % (11.5-14.5); RDW Standard Deviation 49.1 fL (36.4-46.3); Red Blood Count 4.25 M/uL (4.20-5.40)
[2023-11-28] MEDS: ALBUT/IPRATROP 3MG/0.5MG NEB 3 ML VIAL NEB PRN (03:51)
--- NOTE | 2023-11-28 03:56 | Communication Note ---
Date of Service: November 28, 2023 Notified at approximately 3:30 AM by nursing of patient's agonal breathing despite being on 6 L of oxygen satting 100% via BiPAP. Proceeded to bedside, where patient, despite appearing in no acute distress, appeared altered mentally repeatedly asked for a Coca-Cola, struggling to breathe as she asked. At the time, patient continued to saturate 100% on 6 L O2 BiPAP, HR 70s, 20s-30s and appeared to be in mild/moderate respiratory distress. After confirming with respiratory therapist the patient was indeed breathing agonally while on BiPAP, called benton walker for respiratory distress despite BiPAP also ordered BMP, CBC, ABG, lactate, troponin, BNP, chest x-ray. Upon noticing she was still full code, attempted to call patient's daughter, however there was no response. On preliminary review/comparison of bedside XR vs last, there were no signs of acute intrapulmonary changes (noted slight improvement in left lower lobe opacity). CBC appeared unchanged, lactate was negative at 1.0, BMP was normal, troponin was stable (34.3 vs 32.7 a day earlier). Review of med list shows that patient had multiple psychiatric medications Depakote, Abilify, mirtazapine, morphine (50 mg twice daily), venlafaxine were stopped on admission when she was directly admitted to the ICU, with only Abilify restarted since she was extubated 2 days ago. Approximately 20 minutes after benton walker was called, patient's breathing improved and ventilatory support was gradually weaned until she was saturating 100% on room air. She then trialed drinking Coca-Cola, which she tolerated without incident. This rapid improvement, in conjunction with normal stat labs, raises suspicion for temporary mucous plugging vs agitation vs aspiration. As she is now no longer requiring ventilatory/respiratory support, recommend restarting rest of p.o. psych meds in AM. Resident Activity Tracking Resident Involvement: Resident Care Provided Care Provided: Adult Hospital Medicine
[2023-11-28 04:08] LABS: BUN Creatinine Ratio 25.5 (10-20); Calcium 8.5 mg/dl (8.6-10.3); Creatinine Clr Calc Pharmacy 92.2 ml/min; Magnesium 1.9 mg/dl (1.7-2.4); Potassium 3.6 mmol/L (3.5-5.1)
[2023-11-28 04:14] LABS: iSTAT Allen Test Pass; iSTAT Art Bld Gas pCO2 Correct 36 mmHg (35-46); iSTAT Art Bld Gas pH Corrected 7.484 (7.35-7.45); iSTAT Arterial Blood Gas HCO3 27 meg/L (19-24); iSTAT Arterial Blood Gas pCO2 36 mmHg (35-46); iSTAT Arterial Blood Gas pH 7.48 (7.35-7.45); iSTAT Arterial Blood Gas pO2 > 420 mmHg (80-95); iSTAT Arterial Blood Gas pO2 C 452; iSTAT Carbon Dioxide 28 mmol/L (24-31); iSTAT FiO2 100 %; iSTAT Hematocrit 35 % (37-47); iSTAT Hemoglobin 11.9 g/dl (12.0-16.0); iSTAT Potassium 3.1 mmol/L (3.3-5.0); iSTAT Site L Radial; iSTAT Sodium 141 mmol/L (135-144)
[2023-11-28 04:15] LABS: Troponin I High Sensitivity 34.3 pg/ml (0-14)
[2023-11-28 04:20] LABS: Partial Thromboplastin Time 28 Seconds (21-31)
--- NOTE | 2023-11-28 08:31 | XRay Report ---
XR chest 1V portable HISTORY: 83 years-old Female sob acute shortness of breath COMPARISON: 11/25/2023 TECHNIQUE: AP view of the chest FINDINGS: Status post extubation. Cardiomediastinal and hilar silhouettes are unchanged. No pneumothorax. Layer ing pleural effusions with bibasilar and lateral right midlung consolidative opacities again noted. M ild asymmetric right hilar fullness is unchanged. Bones appear grossly intact. IMPRESSION: 1. Status post extubation. 2. Cardiomegaly with pulmonary vascular congestion redemonstrated. 3. Small pleural effusions with persistent bibasilar and right lateral midlung consolidation. 4. Asymmetric right hilar fullness again seen. ACT 112: Negative or not required by law. The above report was generated using voice recognition software. It may contain grammatical, syntax o r spelling errors. Electronically signed by: Steve Shanks M.D. 11/28/2023 8:29 AM
[2023-11-28] MEDS: POTASSIUM CHLORIDE / WTR 10 MEQ/100 ML PLCT IV SCH (08:58)
[2023-11-28] MEDS ORDERED: DIVALPROEX SODIUM SPRINKLE/DEL-REL 125 MG CAP PO SCH (09:00)
[2023-11-28] MEDS: POTASSIUM CHLORIDE CRTAB 20 MEQ TABCR PO STA (09:22)
--- NOTE | 2023-11-28 10:27 | Hospitalist Progress Note ---
Date of Service November 28, 2023 Assessment & Plan (1) Multifocal pneumonia: Plan: Acute respiratory failure with hypoxia/multifocal pneumonia-improving concern for sepsis from pneumonia poa, but also has abnormal ua concern for possible uti on low flow nc oxygen Zosyn 4.5 g IV every 8 hours Pantoprazole 40 mg IV daily Acetaminophen 1 g IV every 8 hours as needed for mild pain or fever Zofran 4 mg IV every 6 hours as needed (2) History of psychosis: Plan: with aggressive behavior History of psychosis/mood disorder/aggressive behavior- restart aripiprazole, divalproex, mirtazapine, morphine, and venlafaxine Plan Urinary tract infection- Follow urine culture sensitivity Antibiotics IV as noted above elevated troponin suspect demand ischemia, was seen by cardiology not recommending heparin or further testing Hyperlipidemia- Hold atorvastatin until extubated and taking p.o. Admission and Anticipated Discharge Date Admission Date: November 25, 2023 Subjective pt is awake, unclear po intake, pt dismissed speech theapy at attempted eval on 11/27 lungs are diminished at bases, ext without edema Physical Exam Physical Exam: cardiac exam is regular lungs are coarse and good air movement bilaterally, but diminished at the bases abd is soft Results & Data Results & Data Vital Signs (Past 12 Hours) Vital Signs Temp Pulse Pulse Resp BP Pulse Ox Pulse Ox 11/28/23 09:06 84 21 97 11/28/23 09:00 165/71 H 11/28/23 09:00 165/71 H 11/28/23 08:54 87 22 98 11/28/23 08:31 159/73 H 11/28/23 08:30 11/28/23 08:30 83 18 97 11/28/23 08:00 75 24 93 11/28/23 08:00 170/74 H 11/28/23 07:30 168/83 H 11/28/23 07:30 168/83 H 11/28/23 07:30 73 22 100 11/28/23 07:01 159/84 H 11/28/23 07:00 89 19 100 11/28/23 07:00 91 H 11/28/23 06:57 79 24 100 11/28/23 04:25 159/81 H 11/28/23 04:20 156/65 H 11/28/23 04:16 149/69 H 11/28/23 04:16 149/69 H 11/28/23 04:15 78 18 100 11/28/23 04:10 159/70 H 11/28/23 04:10 159/70 H 11/28/23 04:10 159/70 H 11/28/23 04:10 159/70 H 11/28/23 04:10 159/70 H 11/28/23 04:09 79 18 99 11/28/23 04:05 161/71 H 11/28/23 04:05 161/71 H 11/28/23 04:05 161/71 H 11/28/23 04:00 97.9 F 11/28/23 04:00 79 22 100 11/28/23 03:56 146/71 H 11/28/23 03:56 146/71 H 11/28/23 03:54 77 23 100 11/28/23 03:53 76 25 H 100 11/28/23 03:51 77 24 100 11/28/23 03:50 168/76 H 11/28/23 03:46 149/73 H 11/28/23 03:39 82 18 100 11/28/23 03:32 171/89 H 11/28/23 03:32 171/89 H 11/28/23 03:27 83 25 H 74 L 11/28/23 03:24 168/83 H 11/28/23 03:24 168/83 H 11/28/23 03:15 68 25 H 100 11/28/23 03:00 75 21 96 11/28/23 02:32 162/85 H 11/28/23 02:32 162/85 H 11/28/23 02:00 73 24 99 11/28/23 02:00 100 11/28/23 01:00 73 22 100 11/28/23 00:18 76 18 99 11/28/23 00:01 171/76 H 11/28/23 00:01 171/76 H 11/28/23 00:00 79 11/28/23 00:00 98.2 F 11/28/23 00:00 76 23 97 11/27/23 23:00 70 21 97 O2 Del Method O2 Del Method O2 Flow Rate O2 Flow Rate 11/28/23 09:06 11/28/23 09:00 11/28/23 09:00 11/28/23 08:54 Nasal Cannula 2 11/28/23 08:31 11/28/23 08:30 Nasal Cannula 2 11/28/23 08:30 11/28/23 08:00 11/28/23 08:00 Nasal Cannula 4 11/28/23 07:30 11/28/23 07:30 11/28/23 07:30 11/28/23 07:01 11/28/23 07:00 6 11/28/23 07:00 11/28/23 06:57 11/28/23 04:25 11/28/23 04:20 11/28/23 04:16 11/28/23 04:16 11/28/23 04:15 11/28/23 04:10 11/28/23 04:10 11/28/23 04:10 11/28/23 04:10 11/28/23 04:10 11/28/23 04:09 11/28/23 04:05 11/28/23 04:05 11/28/23 04:05 11/28/23 04:00 11/28/23 04:00 11/28/23 03:56 11/28/23 03:56 11/28/23 03:54 Room Air 11/28/23 03:53 Room Air 11/28/23 03:51 11/28/23 03:50 11/28/23 03:46 11/28/23 03:39 11/28/23 03:32 11/28/23 03:32 11/28/23 03:27 11/28/23 03:24 11/28/23 03:24 11/28/23 03:15 11/28/23 03:00 11/28/23 02:32 11/28/23 02:32 11/28/23 02:00 11/28/23 02:00 Oxymask 6 11/28/23 01:00 11/28/23 00:18 11/28/23 00:01 11/28/23 00:01 11/28/23 00:00 11/28/23 00:00 11/28/23 00:00 11/27/23 23:00 PG Care Time/CCT Total # of Minutes Spent Total Time Spent with Patient: Total time spent is greater than 50% in coordination of care (as documented) at patient's floor/unit and/or counseling patient: Coding Level of Care Code 61533 SUB INP/OBS CARE MIN Diagnoses Multifocal pneumonia J18.9 History of psychosis Z86.59
--- NOTE | 2023-11-28 10:49 | Electrocardiogram Report ---
Test Reason : Blood Pressure : */* mmHG Vent. Rate : 87 BPM Atrial Rate : 87 BPM P-R Int : 144 ms QRS Dur : 134 ms QT Int : 424 ms P-R-T Axes : 55 -67 71 degrees QTcB Int : 510 ms Poor data quality, interpretation may be adversely affected Normal sinus rhythm Possible Left atrial enlargement Right bundle branch block Left anterior fascicular block Bifascicular block Left ventricular hypertrophy with repolarization abnormality Cannot rule out Septal infarct (cited on or before 24-Nov-2023) Abnormal ECG When compared with ECG of 26-Nov-2023 12:50, No significant change Confirmed by Piotr De La Vega ([id number]) on 11/28/2023 10:49:24 AM Referred By: [email or web address] armando [facility] Confirmed By: Piotr De La Vega
[2023-11-28] MEDS ORDERED: VALPROIC ACID SOLN 250 MG/5 ML UDC PO SCH (11:00)
[2023-11-28] MEDS: VENLAFAXINE HCL XR 75 MG CAPXR PO SCH (11:19)
[2023-11-28] MEDS: VALPROIC ACID 50 MG/ML UDP PO SCH (11:29)
[2023-11-28] MEDS ORDERED: POTASSIUM CHLORIDE CRTAB 20 MEQ TABCR PO SCH (19:00)
[2023-11-28] MEDS ORDERED: Nursing to Pharmacy Communication SCH (20:00)
[2023-11-28] MEDS ORDERED: NON-FORMULARY MEDICATION (Aripiprazole 2 mg tablet) PO SCH (21:00)
[2023-11-28] MEDS: MIRTAZAPINE TAB 15 MG TAB PO SCH (21:17)
[2023-11-29] MEDS: ACETAMINOPHEN SUSP 325 MG/10.15 ML UDC PO PRN (05:58)
[2023-11-29] MEDS: OLANZapine 10 MG/2.1 ML SDV IM STA (09:30)
[2023-11-29] MEDS: CEFDINIR 300 MG CAP PO SCH (09:55)
[2023-11-29] MEDS: FUROSEMIDE 20 MG TAB PO SCH (09:55)
--- NOTE | 2023-11-29 12:11 | Hospitalist Progress Note ---
Date of Service November 29, 2023 Assessment & Plan (1) Multifocal pneumonia: Plan: Multifocal pneumonia With concern for sepsis due to pneumonia on admission, also with UA infected appearing with differential including superimposed UTI Patient weaned from oxygen now with 90-91% on room air. Continue Zosyn every 8 hours Tylenol as needed for pain/fever, Zofran as needed for nausea Recommend completing a 7-day course of antibiotics for pneumonia. She is clinically progressing, does seem to have some superimposed congestion on this as noted below (2) History of psychosis: Plan: with aggressive behavior with nursing staff and some providers History of psychosis/mood disorder/aggressive behavior- Continue aripiprazole, divalproex, mirtazapine, morphine, and venlafaxine (3) Pulmonary vascular congestion: Plan: Echo 11/2023: EF 55 to 60%, mild concentric LVH, LV SF normal, no regional wall motion abnormalities Was seen by cardiology 11/25/2023. Suspect of mildly elevated troponins due to supply/demand mismatch but not reflective of underlying ACS. Blood pressure permitting did agree with a trial of gentle diuresis, and BNP was noted to be elevated Given that BP is greatly improved, and patient is reasonably stable will trial gentle 20 mg Lasix for vascular congestion and see if this improves her sa turation which is borderline normal on room air now at 90-91% but with easy desaturations with movement. (4) UTI (urinary tract infection): Plan: UTI With 2 E. coli isolates on UCx Sensitive to Zosyn, resistant to ampicillin/Unasyn. Cipro versus cefdinir reasonable targets for discharge this would be adequately covered with the cefdinir on discharge. Would defer Augmentin given intermediate sensitivity to Unasyn although clavulanic acid beta-lactamase is superior to sulbactam and this may also be a reasonable choice No urinary symptoms at time of reassessment Plan Disposition: Clinically improving, stabilizing from pneumonia and UTI standpoint. Does have borderline oxygen requirements 11/28, will attempt to optimize with oral Lasix 11/28 - 11/29, and hopefully progression to discharge 11/29. DVT prophylaxis: Lovenox Disposition: Will continue on telemetry due to underlying congestive fluid being treated with diuretics CODE STATUS: Full code Admission and Anticipated Discharge Date Admission Date: November 25, 2023 Subjective Seen at the bedside. Per nursing staff some dismissive/aggressive behavior and pulled out IV. At bedside assessment patient is relatively calm no acute distress. Patient voices no acute concerns at bedside. Physical Exam Physical Exam: General: Oriented to name and hospital. No acute distress HEENT: Atraumatic, normocephalic. Poor dentition Pulm: Symmetrical chest rise, diminished slightly with some crackles in the bases which clear on deep breathing. No wheezing Cardiac: RRR, -mrg. Radial pulses intact and symmetrical. Results & Data Results & Data Vital Signs (Past 12 Hours) Vital Signs Temp Pulse Pulse Resp BP BP Pulse Ox 11/29/23 10:19 36.7 C 11/29/23 09:45 82 22 131/59 L 91 11/29/23 08:00 11/29/23 06:52 66 11/29/23 04:41 79 18 136/71 93 11/29/23 04:00 36.6 C O2 Del Method 11/29/23 10:19 11/29/23 09:45 Room Air 11/29/23 08:00 Room Air 11/29/23 06:52 11/29/23 04:41 11/29/23 04:00 PG Care Time/CCT Total # of Minutes Spent Total Time Spent with Patient: Total time spent is greater than 50% in coordination of care (as documented) at patient's floor/unit and/or counseling patient: Coding Level of Care Code 88511 SUB INP/OBS CARE 3/50MIN Diagnoses Multifocal pneumonia J18.9 History of psychosis Z86.59 Pulmonary vascular congestion R09.89 UTI (urinary tract infection) N39.0
[2023-11-29] MEDS ORDERED: NYSTATIN POWDER 15GM BTL EXT PRN (21:56)
[2023-11-30 06:46] LABS: Basophils # (auto) 0.07 K/uL (0.00-0.20); Basophils % (auto) 0.5 %; Eosinophils % (auto) 9.4 %; Hematocrit (blood only) 39.6 % (37.0-47.0); Hemoglobin 12.7 g/dl (12.0-16.0); Immature Granulocytes % (auto) 0.8 %; Lymphocytes # (auto) 3.73 K/uL (1.20-3.40); Lymphocytes % (auto) 29.2 %; Mean Corpuscular Hemoglobin 27.5 pg (25.0-34.0); Mean Corpuscular Hgb Conc 32.1 g/dL (32.0-36.0); Mean Corpuscular Volume 85.7 fL (80.0-100.0); Mean Platelet Volume 10.5 fL (9.4-12.4); Monocytes # (auto) 1.34 K/uL (0.11-0.59); Monocytes % (auto) 10.5 %; Neutrophils # (auto) 6.34 K/uL (1.40-6.50); Neutrophils % (auto) 49.6 %; Platelet Count 308 K/uL (130-400); RDW Coefficient of Variation 15.2 % (11.5-14.5); RDW Standard Deviation 46.9 fL (36.4-46.3); Red Blood Count 4.62 M/uL (4.20-5.40); White Blood Count 12.78 K/ul (4.8-10.8)
[2023-11-30 06:59] LABS: Calcium 8.9 mg/dl (8.6-10.3); Potassium 4.1 mmol/L (3.5-5.1)
[2023-11-30 07:05] LABS: Creatinine Clr Calc Pharmacy 71.3 ml/min
[2023-11-30] MEDS: ACETAMINOPHEN 325 MG TAB PO PRN (08:55)
[2023-11-30] MEDS: PANTOprazole 40 MG TAB PO SCH (09:00)
--- NOTE | 2023-11-30 10:23 | Discharge Summary ---
Discharge Summary Date of Service November 30, 2023 Principal Dx & Hospital Course #1 = Principal Diagnosis (1) Multifocal pneumonia: Treated while hospitalized with intravenous Zosyn and then switched to oral cefdinir which she will continue for 5 more days at discharge. (2) History of psychosis: with aggressive behavior. History of psychosis/mood disorder/aggressive behavior. Continue aripiprazole, divalproex, mirtazapine, morphine, and venlafaxine (3) Pulmonary vascular congestion: Echo 11/2023: EF 55 to 60%, mild concentric LVH, LV SF normal, no regional wall motion abnormalities. Now resolved. Diuretics discontinued (4) UTI (urinary tract infection): 2 different strains of E. coli isolated. Neither are ESBL. Initially treated with Zosyn then switched to cefdinir which she will continue for 5 more days. Plan Return to [facility] where she has a bed hold today, November 29 Admission HPI Per Admitting Provider The patient is an 83-year-old female resident of [facility] with a past medical history including behavior, history of psychosis, mood disorder, history of UTI, hyperlipidemia, chronic pain syndrome. She presents to the emergency department with history provided by prison staff has had shortness of breath that began earlier in the day, and worsened as the day progressed. Due to progressive worsening, patient was intubated in the emergency department by Dr. Harris, and will be admitted to the ICU for ongoing care. Discharge Exam General-alert and oriented x3, no fever, no chills HEENT-head atraumatic and normocephalic, pupils equal and reactive to light, extraocular muscles intact Neck-no lymphadenopathy or thyromegaly, trachea midline Chest-clear to auscultation. No rales, wheezing or rhonchi Cardiac-regular rate and rhythm, normal S1 and S2 Abdomen-normal bowel sounds, no hepatosplenomegaly Extremities-no cyanosis, clubbing, or edema Neuro-cranial nerves II through XII intact, motor and sensory function within normal limits, strength symmetrical, no focal deficits Psych-normal affect, normal mood Discharge Plan Discharge Items Patient Disposition: Transfer Residential Fac Reason For Visit: ACTURE RESP FAIL W/ HYPOXIA/HYPERCAPEA, PNEUMONIA, Discharge Diagnosis: Acute respiratory failure with hypoxia/hypercapnia, multifocal pneumonia, urinary tract infection, elevated troponin without acute coronary syndrome Activity: Resume your previous activity Non-emergency contact: Primary Care Provider Call non-emergency contact if: your symptoms worsen Follow-up/Referrals: Jonnathan Cardozo [Primary Care Provider] - Diet: Regular Addtl Attending Provider Instructions: Continue cefdinir oral antibiotic for 5 more days Pending Studies at Discharge: No Stand-Alone Forms: My [facility] Skilled Items Patient informed of condition?: Yes DNR: Yes Discharge Level of Care: Skilled Communicable Disease: No Discharge Prognosis: Stable Lines: None Urinary Catheter: No Medications and DC Order Prescriptions: New cefdinir 300 mg Capsule 300 mg PO BID Qty: 10 0RF Continued venlafaxine 75 mg capsule,extended release 24hr 75 mg PO BID morphine 15 mg tablet extended release 15 mg PO BID mirtazapine 15 mg tablet 15 mg PO HS diclofenac sodium 1 % gel 1 g TOPICAL .DAY & EVENING SHIFT Rx Instructions: APPLY TO LEFT SHOULDER atorvastatin 10 mg tablet 10 mg PO HS divalproex 125 mg capsule, delayed rel sprinkle 125 mg PO DAILY aripiprazole 2 mg tablet 2 mg PO HS acetaminophen 325 mg Tablet 325 mg PO Q6 MDD 3G/24 HR PRN (Reason: PAIN 1-10) naproxen sodium 220 mg Tablet 220 mg PO UD PRN (Reason: OTHER PAIN) naproxen sodium 220 mg Tablet 220 mg PO BID PRN (Reason: L SHOULDER PAIN) Multiple Vitamin-Minerals Tablet 1 tab PO DAILY Eucerin Itch Relief 0.1 % Lotion 1 ea TOPICAL BID Rx Instructions: APPLY TO ITCHY AREAS EVERY DAY AND EVENING SHIFT Discharge Orders: Discharge Order (Routine); Ordered 11/30/23 Ordered By: Sincere Thompson Admission Data Admit Date/Time: 11/25/23 01:25 Attending Provider: Sincere Thompson Admit Provider: Jayro Brennan Primary Care Provider: Jonnathan Cardozo Other Providers: Jayro Brennan; Bushra Gunn; Joan Clark; Horace Mitchell; Thong Teran; Piotr De La Vega; Kiran Orozco; Kurt Santamaria; Alistair Garcia Jr; Toby Ross; Katerin Gregory; Erin Zimmer; Rahat Holloway; Rahat Collins; Sincere Izaguirre; Lisa Estes; Alvin Lagunas; Teresa Cruz; Darrell Herndon; Aditya Verdin; Renny Mane Hospital Stay Data Consultations 11/25/23 00:37 ED Decision to Admit Stat 11/25/23 02:53 Consult Operating Room Coordinator Routine 11/25/23 03:54 Consult Operating Room Coordinator Stat 11/25/23 10:02 Consult Cardiology Routine Diagnostic Imagining Performed 11/25/23 06:59 CT head/brain wo con Stat Pending Results Patient Have Any Pending Studies at Discharge: No Discharge Instructions Given to Patient (Per Discharging Provider) Continue cefdinir oral antibiotic for 5 more days Total Time Total Time Spent Total Time Spent (In Minutes): 45 minutes Coding Level of Care Code 58825 INP/OBS DISCH >30 MIN Diagnoses Multifocal pneumonia J18.9 History of psychosis Z86.59 Pulmonary vascular congestion R09.89 UTI (urinary tract infection) N39.0
[2023-11-30 11:04] VITALS: PULSE 95; RESP 20; TEMP 97.5; O2SAT 94
[2023-11-30 16:07] VITALS: BP 119/76
== END 2023-11-30 16:07 | DRG 871 ==
LOC: ED 23:46 → 1E 11-25 01:25 → SUATTDRO 11-25 01:25 → 1E 11-25 03:04 → 2S 11-29 13:13

== ENCOUNTER 2023-12-23 23:50 | Inpatient (IN) ==
[2023-12-24 00:19] LABS: iSTAT Arterial Blood Gas HCO3 33 meg/L (19-24); iSTAT Arterial Blood Gas pCO2 54 mmHg (35-46); iSTAT Arterial Blood Gas pH 7.39 (7.35-7.45); iSTAT Arterial Blood Gas pO2 87 mmHg (80-95); iSTAT Carbon Dioxide 34 mmol/L (24-31); iSTAT Hematocrit 40 % (37-47); iSTAT Hemoglobin 13.6 g/dl (12.0-16.0); iSTAT Potassium 4.4 mmol/L (3.3-5.0); iSTAT Sample Type Arterial; iSTAT Sodium 137 mmol/L (135-144)
[2023-12-24 00:27] LABS: Basophils # (auto) 0.07 K/uL (0.00-0.20); Basophils % (auto) 0.4 %; Eosinophils # (auto) 0.37 K/uL (0.00-0.50); Eosinophils % (auto) 1.9 %; Hematocrit (blood only) 42.5 % (37.0-47.0); Immature Granulocytes # (auto) 0.07 K/uL (0.01-0.20); Immature Granulocytes % (auto) 0.4 %; Lymphocytes # (auto) 2.08 K/uL (1.20-3.40); Lymphocytes % (auto) 10.9 %; Mean Corpuscular Hemoglobin 27.5 pg (25.0-34.0); Mean Corpuscular Hgb Conc 30.6 g/dL (32.0-36.0); Mean Platelet Volume 10.9 fL (9.4-12.4); Monocytes # (auto) 1.08 K/uL (0.11-0.59); Monocytes % (auto) 5.6 %; Neutrophils # (auto) 15.48 K/uL (1.40-6.50); Neutrophils % (auto) 80.8 %; Platelet Count 279 K/uL (130-400); RDW Coefficient of Variation 15.5 % (11.5-14.5); RDW Standard Deviation 51.6 fL (36.4-46.3); Red Blood Count 4.72 M/uL (4.20-5.40); White Blood Count 19.15 K/ul (4.8-10.8)
[2023-12-24 00:51] LABS: Alanine Aminotransferase 12 U/L (7-52); Alkaline Phosphatase 132 U/L (34-104); Anion Gap 8 (3-11); BUN Creatinine Ratio 34.5 (10-20); Bilirubin,Total 0.5 mg/dl (0.2-1.0); Blood Urea Nitrogen 19 mg/dl (6-23); Carbon Dioxide 33 mmol/L (21-32); Chloride 98 mmol/L (98-107); Creatinine Clr Calc Pharmacy 76.2 ml/min; Globulin 4.1 gm/dl (2.5-4.0); Glucose 170 mg/dl (70-99(Fasting)); Sodium 139 mmol/L (136-145); Total Protein 8.1 gm/dl (6.0-8.3)
--- NOTE | 2023-12-24 01:10 | Emergency Department Note ---
Impression & Plan Hypoxia, Respiratory failure, Bilateral pneumonia admit to the [facility] ED Provider Note NAME: LUCA GARCIA AGE: 83 SEX: Female INFORMANT: Patient ED PROVIDER(S): Mary Cordova DO CHIEF COMPLAINT: Shortness of breath PLAN: Disposition: admit to the [facility] MEDICAL DECISION MAKING: this is an 83-year-old female patient from [facility] who had sudden onset of shortness of breath tonight. She was 84% on a nasal cannula. She was given DuoNeb treatments and Solu-Medrol at the detention. EMS was called and she was transported here on nonrebreather at 98% although she was still significantly short of breath. Upon arrival here in the emergency department she was switched over to BiPAP and was much more comfortable with O2 saturations in the high 90s. ABG was performed upon arrival and found her pH to be 7.38 and pCO2 of 54. Patient had recently been admitted to the hospital and required intubation just 2 weeks ago for respiratory failure secondary to pneumonia. laboratory studies here today show a white blood cell count of 19.1. H&H were stable. Lactate was normal. Glucose was 170. Troponin was 25.1 chest x-ray today shows evidence of bilateral lower lobe infiltrates. Patient was treated with IV Zosyn. Initially patient was placed on BiPAP to support O2 saturations. She was then weaned down to an oxy mask. Patient continues to pull out her IV lock sites. She was placed in soft restraints. This was discussed with the [facility]ist and they will evaluate for further inpatient care. Care/management discussed with: manager internal and [facility] Triage Nursing notes: reviewed and agree With them. Vital Signs: reviewed and currently unremarkable. Additional History obtained from: EMS Chronic Medical/Social Conditions affecting care: currently resides at [facility]; recent hypoxic respiratory failure requiring intubation secondary to pneumonia outside records reviewed: I reviewed her most recent admission to the hospital for respiratory failure secondary to pneumonia Differential Diagnosis: exacerbation of lung disease; pneumonia; COVID; CHF Diagnostics, independently interpreted by me: ECG: sinus tachycardia at a rate of 102 with a right bundle branch block. There is no ST segment elevation or signs of ischemia. There is no ectopy. Cardiac Monitoring: Normal sinus rhythm at a rate of 97 Imaging studies: portable chest x-ray: As per my independent interpretation- bilateral lower lobe infiltrates HPI: 83 year old Female arrives for evaluation of respiratory distress. patient presents from her side with fairly sudden onset of respiratory distress. Staff there administered DuoNeb treatment and Solu-Medrol. O2 saturation on nasal cannula was 84%. She was switched over to a nonrebreather by EMS and came up to 98%.. PAST MEDICAL HISTORY: See Below, PAST SURGICAL HISTORY: See Below, SOCIAL HISTORY: See Below, HOME MEDICATIONS: See list ALLERGIES: see list VITALS: See Below PHYSICAL EXAMINATION: HEENT: Head - normocephalic and atraumatic. Pupils are equal, round, and reactive to light. Extraocular eye muscles are intact, and sclera are anicteric. Nose - moist nasal mucosa without discharge. Mouth - moist buccal mucosa. Oropharynx is nonerythematous and there is no tonsillar exudate or edema noted. Neck: Supple; no JVD Or cervical lymphadenopathy Heart: Regular rate and rhythm. There is a normal S1 and S2 with no murmurs, clicks, or gallops appreciated. Lungs: diminished breath sounds in all lung horne Abdomen: Soft, completely nontender, nondistended, with good bowel sounds. There are no palpable pulsatile masses or hepatosplenomegaly. There is no guarding, rigidity, or rebound noted. Extremities: No evidence of cyanosis, clubbing, or edema. There are easily palpable peripheral pulses. Skin: warm and dry with good turgor and no rashes. ED treatment: night monitor, supplemental oxygen BiPAP BiPAP then switched to oxy mask, IV Zosyn emergency department course: The patient was evaluated in room A-11. A complete history and physical was performed. previous inpatient records reviewed. Patient was placed on BiPAP and an ABG was obtained. An order was placed for continuous cardiac monitoring. The patient was in a normal sinus rhythm at a rate of 97. A twelve-lead EKG was obtained as described above. Portable chest x-ray was performed. Laboratory studies were drawn. Patient was noted to have a significantly elevated white blood cell count. The rest of a septic protocol was obtained. The patient was noted to have bilateral lower lobe infiltrates and she was treated with IV Zosyn after blood cultures were obtained. She remains hemodynamically stable. I discussed the case with the [facility] Hospitalist and they will evaluate for further inpatient care. I have personally spent greater than 40 minutes of critical care time in the direct management of this patient. This includes bedside care, interpretation of diagnostic studies, and testing, discussion with consultants, patient, and family members, and other required patient management activities. This 40 minutes is in excess of all separately billable procedures. Past Med/Surg History Problem List (Updated 12/24/23 @ 04:02 by Mary Cordova DO) Bilateral pneumonia (Acute) Respiratory failure (Acute) Hypoxia (Acute) Oxygen dependent Aspiration pneumonia Acute on chronic respiratory failure with hypoxia Pulmonary vascular congestion Elevated troponin Septic shock Hyperlipidemia Multifocal pneumonia (Acute) Acute hypoxic respiratory failure (Acute) Aggressive behavior (Acute) History of psychosis (Acute) Mood disorder (Acute) UTI (urinary tract infection) (Acute) Social History Smoking Status: Unknown if ever smoked Hx Substance Use: No (pt intubated) Preferred Language: Mohawk Communication Ability: Impaired Exchange Floor Manager Required: No Beliefs That Will Affect Care: None Current Living Situation: Skilled Nursing Feels Safe at Home: Yes Allergies Allergies Allergy/AdvReac Type Severity Reaction Status Date / Time thimerosal Allergy Unknown unknown Verified 11/25/23 00:06 Home Meds Home Medications Medication Instructions Recorded Confirmed acetaminophen 325 mg tablet 650 mg PO Q6 PRN Fever Or Pain 11/25/23 12/24/23 aripiprazole 2 mg tablet 2 mg PO HS 11/25/23 12/24/23 atorvastatin 10 mg tablet 10 mg PO HS 11/25/23 12/24/23 diclofenac sodium 1 % topical gel 1 g topical .DAY & EVENING SHIFT 11/25/23 12/24/23 divalproex 125 mg capsule,delayed 125 mg PO DAILY 11/25/23 12/24/23 release sprinkle menthol 0.1 % lotion (Eucerin Itch 1 ea topical BID 11/25/23 12/24/23 Relief) mirtazapine 15 mg tablet 15 mg PO HS 11/25/23 12/24/23 morphine 15 mg tablet,extended 15 mg PO BID 11/25/23 12/24/23 release multivitamin with minerals 1 tab PO DAILY 11/25/23 12/24/23 (Multiple Vitamin-Minerals tablet) naproxen sodium 220 mg tablet 220 mg PO Q12 PRN L SHOULDER PAIN 11/25/23 12/24/23 venlafaxine 75 mg capsule,extended 75 mg PO BID 11/25/23 12/24/23 release 24 hr diclofenac sodium 1 % topical gel 1 ea topical BID 12/24/23 12/24/23 Results & Data (ED) Vital Signs Vital Signs - 24 hr 12/23/23 23:56 12/24/23 00:01 12/24/23 00:17 Temperature 36.7 C Temperature Source Oral Pulse Rate 102 H 103 H Pulse Rate [Finger] Pulse Rhythm [Finger] Pulse Strength [Finger] Respiratory Rate 22 Respiratory Effort / Characteristics Non-Labored Spontaneous Respiratory Depth Normal Respiratory Pattern Blood Pressure 142/87 H Blood Pressure [Left Arm] Blood Pressure Mean 105 Blood Pressure Mean [Left Arm] Pulse Oximetry 96 96 Oxygen Delivery Method BiPAP BiPAP Oxygen Flow Rate Fraction of Inspired Oxygen Sepsis Recent Fever Within 48 Hours No Sepsis New/Unexplained Change in Mental Status N/A Sepsis Action Taken by Nursing No Action Required 12/24/23 00:17 12/24/23 00:17 12/24/23 00:34 Temperature Temperature Source Pulse Rate 102 H Pulse Rate [Finger] Pulse Rhythm [Finger] Pulse Strength [Finger] Respiratory Rate 25 H Respiratory Effort / Characteristics Spontaneous Accessory Muscle Use Labored Non-Labored Spontaneous Respiratory Depth Normal Respiratory Pattern Regular Blood Pressure Blood Pressure [Left Arm] Blood Pressure Mean Blood Pressure Mean [Left Arm] Pulse Oximetry 94 Oxygen Delivery Method BiPAP BiPAP Oxygen Flow Rate Fraction of Inspired Oxygen 50 Sepsis Recent Fever Within 48 Hours Sepsis New/Unexplained Change in Mental Status Sepsis Action Taken by Nursing 12/24/23 01:00 12/24/23 02:00 12/24/23 03:49 Temperature Temperature Source Pulse Rate 93 H 97 H Pulse Rate [Finger] 95 H Pulse Rhythm [Finger] Regular Pulse Strength [Finger] Normal Respiratory Rate 20 22 Respiratory Effort / Characteristics Non-Labored Spontaneous Respiratory Depth Normal Respiratory Pattern Regular Blood Pressure 129/70 Blood Pressure [Left Arm] 146/87 H Blood Pressure Mean 89 Blood Pressure Mean [Left Arm] 106 Pulse Oximetry 100 92 Oxygen Delivery Method BiPAP Nasal Cannula Oxygen Flow Rate 4 Fraction of Inspired Oxygen Sepsis Recent Fever Within 48 Hours Sepsis New/Unexplained Change in Mental Status Sepsis Action Taken by Nursing Laboratory Data 12/24/23 00:13 12/24/23 01:41 Lab Results 12/24/23 12/24/23 12/24/23 Range/Units 00:02 00:13 01:25 WBC 19.15 H (4.8-10.8) K/ul RBC 4.72 (4.20-5.40) M/uL Hgb 13.0 (12.0-16.0) g/dl POC Hgb 13.6 (12.0-16.0) g/dl Hct 42.5 (37.0-47.0) % POC Hct 40 (37-47) % MCV 90.0 (80.0-100.0) fL MCH 27.5 (25.0-34.0) pg MCHC 30.6 L (32.0-36.0) g/dL RDW Std Deviation 51.6 H (36.4-46.3) fL RDW Coeff of Louise 15.5 H (11.5-14.5) % Plt Count 279 (130-400) K/uL MPV 10.9 (9.4-12.4) fL Immature Gran % (Auto) 0.4 % Neut % (Auto) 80.8 % Lymph % (Auto) 10.9 % [place] % (Auto) 5.6 % Eos % (Auto) 1.9 % Baso % (Auto) 0.4 % Neut # (Auto) 15.48 H (1.40-6.50) K/uL Lymph # (Auto) 2.08 (1.20-3.40) K/uL [place] # (Auto) 1.08 H (0.11-0.59) K/uL Eos # (Auto) 0.37 (0.00-0.50) K/uL Baso # (Auto) 0.07 (0.00-0.20) K/uL Immature Gran # (Auto) 0.07 (0.01-0.20) K/uL Specimen Type Arterial POC pH 7.39 (7.35-7.45) POC pCO2 54 H (35-46) mmHg POC pO2 87 (80-95) mmHg POC HCO3 33 H (19-24) jameel/L POC Total CO2 34 H (24-31) mmol/L POC Base Excess 8.0 H (-9-1.8) jameel/L POC ABG O2 Sat 96.0 H (90-95) % POC Sodium 137 (135-144) mmol/L Sodium 139 (136-145) mmol/L POC Potassium 4.4 (3.3-5.0) mmol/L Potassium TNP Chloride 98 (98-107) mmol/L Carbon Dioxide 33 H (21-32) mmol/L Anion Gap 8 (3-11) BUN 19 (6-23) mg/dl Creatinine 0.55 L (0.6-1.2) mg/dl Est Cr Clr Drug Dosing 76.2 ml/min eGFR 90.89 BUN/Creatinine Ratio 34.5 H (10-20) Glucose 170 H (70-99(Fasting)) mg/dl Lactate (0.4-2.0) mmol/L Calcium 10.0 (8.6-10.3) mg/dl Total Bilirubin 0.5 (0.2-1.0) mg/dl AST TNP ALT 12 (7-52) U/L Alkaline Phosphatase 132 H (34-104) U/L Troponin I High Sens 25.1 H (0-14) pg/ml Total Protein 8.1 (6.0-8.3) gm/dl Albumin 4.0 (3.4-5.0) gm/dl Globulin 4.1 H (2.5-4.0) gm/dl Albumin/Globulin Ratio 1.0 (0.9-2) Procalcitonin (0-0.5) ng/ml Nasal Screen MRSA (PCR) (Negative) Adenovirus (PCR) Not Detected (NotDetected) B. pertussis DNA (PCR) Not Detected (NotDetected) B.parapertussis DNA PCR Not Detected (NotDetected) C. pneumoniae DNA (PCR) Not Detected (NotDetected) Coronavirus OC43 (PCR) Not Detected (NotDetected) Coronavirus HKU1 (PCR) Not Detected (NotDetected) Coronavirus 229E (PCR) Not Detected (NotDetected) SARS-CoV-2 (PCR) Not Detected (NotDetected) Coronavirus NL63 (PCR) Not Detected (NotDetected) Human Metapneumovir PCR Not Detected (NotDetected) Influenza Type A (PCR) Not Detected (NotDetected) Influenza Type B (PCR) Not Detected (NotDetected) M. pneumoniae (PCR) Not Detected (NotDetected) Parainfluenza 1 (PCR) Not Detected (NotDetected) Parainfluenza 2 (PCR) Not Detected (NotDetected) Parainfluenza 3 (PCR) Not Detected (NotDetected) Parainfluenza 4 (PCR) Not Detected (NotDetected) RSV (PCR) Not Detected (NotDetected) Entero/Rhino (PCR) Not Detected (NotDetected) 12/24/23 12/24/23 12/24/23 Range/Units 01:41 02:25 03:03 WBC (4.8-10.8) K/ul RBC (4.20-5.40) M/uL Hgb (12.0-16.0) g/dl POC Hgb (12.0-16.0) g/dl Hct (37.0-47.0) % POC Hct (37-47) % MCV (80.0-100.0) fL MCH (25.0-34.0) pg MCHC (32.0-36.0) g/dL RDW Std Deviation (36.4-46.3) fL RDW Coeff of Louise (11.5-14.5) % Plt Count (130-400) K/uL MPV (9.4-12.4) fL Immature Gran % (Auto) % Neut % (Auto) % Lymph % (Auto) % [place] % (Auto) % Eos % (Auto) % Baso % (Auto) % Neut # (Auto) (1.40-6.50) K/uL Lymph # (Auto) (1.20-3.40) K/uL [place] # (Auto) (0.11-0.59) K/uL Eos # (Auto) (0.00-0.50) K/uL Baso # (Auto) (0.00-0.20) K/uL Immature Gran # (Auto) (0.01-0.20) K/uL Specimen Type POC pH (7.35-7.45) POC pCO2 (35-46) mmHg POC pO2 (80-95) mmHg POC HCO3 (19-24) jameel/L POC Total CO2 (24-31) mmol/L POC Base Excess (-9-1.8) jameel/L POC ABG O2 Sat (90-95) % POC Sodium (135-144) mmol/L Sodium (136-145) mmol/L POC Potassium (3.3-5.0) mmol/L Potassium 4.6 Chloride (98-107) mmol/L Carbon Dioxide (21-32) mmol/L Anion Gap (3-11) BUN (6-23) mg/dl Creatinine (0.6-1.2) mg/dl Est Cr Clr Drug Dosing ml/min eGFR BUN/Creatinine Ratio (10-20) Glucose (70-99(Fasting)) mg/dl Lactate 1.1 (0.4-2.0) mmol/L Calcium (8.6-10.3) mg/dl Total Bilirubin (0.2-1.0) mg/dl AST 14 ALT (7-52) U/L Alkaline Phosphatase (34-104) U/L Troponin I High Sens 21.4 H (0-14) pg/ml Total Protein (6.0-8.3) gm/dl Albumin (3.4-5.0) gm/dl Globulin (2.5-4.0) gm/dl Albumin/Globulin Ratio (0.9-2) Procalcitonin 0.05 (0-0.5) ng/ml Nasal Screen MRSA (PCR) Negative (Negative) Adenovirus (PCR) (NotDetected) B. pertussis DNA (PCR) (NotDetected) B.parapertussis DNA PCR (NotDetected) C. pneumoniae DNA (PCR) (NotDetected) Coronavirus OC43 (PCR) (NotDetected) Coronavirus HKU1 (PCR) (NotDetected) Coronavirus 229E (PCR) (NotDetected) SARS-CoV-2 (PCR) (NotDetected) Coronavirus NL63 (PCR) (NotDetected) Human Metapneumovir PCR (NotDetected) Influenza Type A (PCR) (NotDetected) Influenza Type B (PCR) (NotDetected) M. pneumoniae (PCR) (NotDetected) Parainfluenza 1 (PCR) (NotDetected) Parainfluenza 2 (PCR) (NotDetected) Parainfluenza 3 (PCR) (NotDetected) Parainfluenza 4 (PCR) (NotDetected) RSV (PCR) (NotDetected) Entero/Rhino (PCR) (NotDetected) Administered Medications Discontinued Medications Piperacillin Sod/Tazobactam Sod (Zosyn) 4.5 gm in 100 mls @ 200 mls/hr IV NOW ONE; Protocol Stop: 12/24/23 01:57 Last Infusion: 12/24/23 02:23 Dose: Infused Documented By: Admin: 12/24/23 01:50 Dose: 200 mls/hr Documented By: POONAM Imaging Data Radiologist's Impression: Chest X-Ray 12/23/23 23:56 EXAM: XR chest 1V portable CLINICAL HISTORY: [facility] INPATIENT TECHNIQUE: X-ray image of the chest was obtained in frontal projection. COMPARISON: No prior studies available for comparison. FINDINGS: Pulmonary Parenchyma: Blunting of bilateral costophrenic angles with subtle opacities in lower zones, could be pleural effusion /thickening with subsegmental collapse/infiltrates. No evidence of consolidation. No pulmonary nodules identified. Fibrotic marking noted in the right upper zone. Biapical minimal pleural thickening. Heart and Mediastinum: Heart size and shape are normal. No mediastinal widening or masses. No hilar or mediastinal lymphadenopathy. Aortic arch calcification. Bony Thorax: Bony thorax appears intact. Left shoulder joint osteoarthritis. Soft Tissues: Soft tissues overlying the chest wall are unremarkable. IMPRESSION: 1. Blunting of bilateral costophrenic angles. could be pleural effusion /thickening 2. Subtle opacities in lower zones. Could be subsegmental collapse/infiltrates. 3. Clinical correlation and CT chest is recommended for further evaluation. Electronically signed by Larissa Nichole 12-24-2023 01:38 AM Discharge Plan Visit Data Chief Complaint: Respiratory Problems Stated Complaint: RESP FAILURE ED Provider: Mary Cordova Discharge Problem: Hypoxia, Respiratory failure, Bilateral pneumonia Forms Stand Alone Forms: My [facility] Prescriptions Prescriptions: No Action venlafaxine 75 mg capsule,extended release 24hr 75 mg PO BID morphine 15 mg tablet extended release 15 mg PO BID mirtazapine 15 mg tablet 15 mg PO HS diclofenac sodium 1 % gel 1 g TOPICAL .DAY & EVENING SHIFT Rx Instructions: APPLY TO LEFT SHOULDER atorvastatin 10 mg tablet 10 mg PO HS divalproex 125 mg capsule, delayed rel sprinkle 125 mg PO DAILY aripiprazole 2 mg tablet 2 mg PO HS acetaminophen 325 mg Tablet 650 mg PO Q6 MDD 3G/24 HR PRN (Reason: Fever Or Pain) Rx Instructions: use for temp > 101 or pain 1-6 naproxen sodium 220 mg Tablet 220 mg PO Q12 PRN (Reason: L SHOULDER PAIN) Multiple Vitamin-Minerals Tablet 1 tab PO DAILY Eucerin Itch Relief 0.1 % Lotion 1 ea TOPICAL BID Rx Instructions: APPLY TO ITCHY AREAS EVERY DAY AND EVENING SHIFT diclofenac sodium 1 % gel 1 ea TOPICAL BID Rx Instructions: apply to left shoulder every day and evening shift Referrals Referrals: Jonnathan Cardozo [Primary Care Provider] - Discharge Problem: Bilateral pneumonia Qualifiers: Pneumonia type: due to unspecified organism Lung location: lower lobe of lung Q ualified Code(s): J18.9 - Pneumonia, unspecified organism
--- NOTE | 2023-12-24 01:39 | XRay Report ---
EXAM: XR chest 1V portable CLINICAL HISTORY: [facility] INPATIENT TECHNIQUE: X-ray image of the chest was obtained in frontal projection. COMPARISON: No prior studies available for comparison. FINDINGS: Pulmonary Parenchyma: Blunting of bilateral costophrenic angles with subtle opacities in lower zones, could be pleural effusion /thickening with subsegmental collapse/infiltrates. No evidence of consolidation. No pulmonary nodules identified. Fibrotic marking noted in the right upper zone. Biapical minimal pleural thickening. Heart and Mediastinum: Heart size and shape are normal. No mediastinal widening or masses. No hilar or mediastinal lymphadenopathy. Aortic arch calcification. Bony Thorax: Bony thorax appears intact. Left shoulder joint osteoarthritis. Soft Tissues: Soft tissues overlying the chest wall are unremarkable. IMPRESSION: 1. Blunting of bilateral costophrenic angles. could be pleural effusion /thickening 2. Subtle opacities in lower zones. Could be subsegmental collapse/infiltrates. 3. Clinical correlation and CT chest is recommended for further evaluation. Electronically signed by Larissa Nichole 12-24-2023 01:38 AM
[2023-12-24] MEDS: PIPERACILLIN/TAZOBACTAM 4.5 GM/100 ML BAG IV ONE (01:50)
[2023-12-24 01:52] LABS: Troponin I High Sensitivity 25.1 pg/ml (0-14)
[2023-12-24 02:10] LABS: Potassium 4.6 mmol/L (3.5-5.1)
[2023-12-24] MEDS ORDERED: ALBUT/IPRATROP 3MG/0.5MG NEB 3 ML VIAL NEB PRN (02:18)
--- NOTE | 2023-12-24 02:28 | History & Physical Report ---
Date of Service December 24, 2023 Assessment & Plan (1) Acute on chronic respiratory failure with hypoxia: (2) Aspiration pneumonia: (3) Oxygen dependent: Plan Acute on chronic respiratory failure with hypoxia due to aspiration pneumonia- Nasal cannula 2 L oxygen dependency Titration of nasal cannula up to 4 L, to target pulse ox 92-94% DuoNebs every 2 hours as needed Zosyn 4.5 g IV every 8 hours Solu-Medrol 40 mg IV every 12 hours BioFire testing negative Troponin 25.1, is likely elevated to supply/demand mismatch, with follow-up ordered Leukocytosis, with count 19.15, is likely secondary to patient having been on steroids Continue divalproex 125 mg every morning, mirtazapine 15 mg at bedtime, venlafaxine 75 mg twice a day and aripiprazole 2 mg at bedtime For chronic pain continue morphine 15 mg p.o. twice daily History of Present Illness Chief Complaint: The patient was transferred to the emergency department from [facility] due to worsening shortness of breath and increased heart rate with labored breathing despite use of nebulizer and Solu-Medrol. Her nasal cannula at baseline is 2 L, with a pulse ox of 84%, and with change to 4 L nasal cannula, improved to 92% Primary Care Provider: Jonnathan [facility] The patient is an 83-year-old female with a past medical history including septic shock, hyperlipidemia, multifocal pneumonia, acute respiratory failure with hypoxia, aggressive behavior, history of psychosis, mood disorder, urinary tract infection, insomnia, chronic pain syndrome, and dementia. She presents to the emergency department with worsening respiratory status as noted above. She was initially placed on BiPAP, and then was ultimately able to be changed back to nasal cannula 4 L oxygen, with pulse ox in the mid 90s. Allergies Allergy/AdvReac Type Severity Reaction Status Date / Time thimerosal Allergy Unknown unknown Verified 11/25/23 00:06 Home Medications Medication Instructions Recorded Confirmed Type acetaminophen 325 mg tablet 650 mg PO Q6 PRN Fever Or Pain 11/25/23 12/24/23 History aripiprazole 2 mg tablet 2 mg PO HS 11/25/23 12/24/23 History atorvastatin 10 mg tablet 10 mg PO HS 11/25/23 12/24/23 History diclofenac sodium 1 % topical gel 1 g topical .DAY & EVENING SHIFT 11/25/23 12/24/23 History divalproex 125 mg capsule,delayed 125 mg PO DAILY 11/25/23 12/24/23 History release sprinkle menthol 0.1 % lotion (Eucerin Itch 1 ea topical BID 11/25/23 12/24/23 History Relief) mirtazapine 15 mg tablet 15 mg PO HS 11/25/23 12/24/23 History morphine 15 mg tablet,extended 15 mg PO BID 11/25/23 12/24/23 History release multivitamin with minerals 1 tab PO DAILY 11/25/23 12/24/23 History (Multiple Vitamin-Minerals tablet) naproxen sodium 220 mg tablet 220 mg PO Q12 PRN L SHOULDER PAIN 11/25/23 12/24/23 History venlafaxine 75 mg capsule,extended 75 mg PO BID 11/25/23 12/24/23 History release 24 hr diclofenac sodium 1 % topical gel 1 ea topical BID 12/24/23 12/24/23 History Past Med/Surg History Problem List (Updated 12/24/23 @ 02:53 by Jayro Brennan MD) Oxygen dependent Aspiration pneumonia Acute on chronic respiratory failure with hypoxia Pulmonary vascular congestion Elevated troponin Septic shock Hyperlipidemia Multifocal pneumonia (Acute) Acute hypoxic respiratory failure (Acute) Aggressive behavior (Acute) History of psychosis (Acute) Mood disorder (Acute) UTI (urinary tract infection) (Acute) Social History Smoking Status: Unknown if ever smoked Hx Substance Use: No (pt intubated) Preferred Language: Slovenian Communication Ability: Impaired Food Safety Coordinator Required: No Beliefs That Will Affect Care: None Current Living Situation: Custodial Feels Safe at Home: Yes Review of Systems Review of Systems: The patient denies chest pain, palpitations, lower extremity swelling, sore throat, fevers, chills, sweats, nausea, vomiting, diarrhea , constipation, abdominal pain, pelvic pain, blood in urine or stool, dysuria, urinary frequency or urgency, loss of consciousness, rash, abnormal bruising or bleeding, focal weakness, numbness or tingling in arms or legs, generalized arthralgias or myalgias, back or neck pain, or night sweats. The review of systems is otherwise negative other than for that already noted above, and at least 10 systems have been reviewed. Physical Exam Physical Exam: The patient is awake, alert, coarse breath sounds bilaterally. Normocephalic and atraumatic, lying in bed and in no acute distress. HEENT--PERRL, EOMI, mucous membranes and oropharynx dry. Neck--supple. No JVD. No bruits. Thyroid normal, trachea midline, no adenopathy. Heart--normal S1 and S2. No murmurs, rubs or gallops. Lungs--coarse breath sounds bilaterally. no respiratory distress, no accessory muscle use. Abdomen--normal bowel sounds and soft. Nontender. Nondistended, no hernias or masses, no organomegaly. Extremities-- No edema. Dermatologic--skin is dry Neurologic--cranial nerves II through XII grossly intact. Rheumatologic--normal range of motion. Psychiatric--normal affect. Results & Data Results & Data Vital Signs (Past 12 Hours) Vital Signs Temp Pulse Pulse Resp BP BP Pulse Ox 12/24/23 02:00 93 H 22 129/70 92 12/24/23 01:00 95 H 20 146/87 H 100 12/24/23 00:34 102 H 25 H 94 12/24/23 00:17 12/24/23 00:17 12/24/23 00:17 96 12/24/23 00:01 103 H 12/23/23 23:56 36.7 C 102 H 22 142/87 H 96 O2 Del Method O2 Flow Rate FiO2 12/24/23 02:00 Nasal Cannula 4 12/24/23 01:00 BiPAP 12/24/23 00:34 50 12/24/23 00:17 BiPAP 12/24/23 00:17 BiPAP 12/24/23 00:17 BiPAP 12/24/23 00:01 12/23/23 23:56 BiPAP Laboratory Results Laboratory Results WBC 19.15 K/ul (4.8-10.8) H 12/24/23 00:13 RBC 4.72 M/uL (4.20-5.40) 12/24/23 00:13 Hgb 13.0 g/dl (12.0-16.0) 12/24/23 00:13 POC Hgb 13.6 g/dl (12.0-16.0) 12/24/23 00:02 Hct 42.5 % (37.0-47.0) 12/24/23 00:13 POC Hct 40 % (37-47) 12/24/23 00:02 MCV 90.0 fL (80.0-100.0) 12/24/23 00:13 MCH 27.5 pg (25.0-34.0) 12/24/23 00:13 MCHC 30.6 g/dL (32.0-36.0) L 12/24/23 00:13 RDW Std Deviation 51.6 fL (36.4-46.3) H 12/24/23 00:13 RDW Coeff of Louise 15.5 % (11.5-14.5) H 12/24/23 00:13 Plt Count 279 K/uL (130-400) 12/24/23 00:13 MPV 10.9 fL (9.4-12.4) 12/24/23 00:13 Immature Gran % (Auto) 0.4 % 12/24/23 00:13 Neut % (Auto) 80.8 % 12/24/23 00:13 Lymph % (Auto) 10.9 % 12/24/23 00:13 Loíza % (Auto) 5.6 % 12/24/23 00:13 Eos % (Auto) 1.9 % 12/24/23 00:13 Baso % (Auto) 0.4 % 12/24/23 00:13 Neut # (Auto) 15.48 K/uL (1.40-6.50) H 12/24/23 00:13 Lymph # (Auto) 2.08 K/uL (1.20-3.40) 12/24/23 00:13 Loíza # (Auto) 1.08 K/uL (0.11-0.59) H 12/24/23 00:13 Eos # (Auto) 0.37 K/uL (0.00-0.50) 12/24/23 00:13 Baso # (Auto) 0.07 K/uL (0.00-0.20) 12/24/23 00:13 Immature Gran # (Auto) 0.07 K/uL (0.01-0.20) 12/24/23 00:13 Specimen Type Arterial 12/24/23 00:02 POC pH 7.39 (7.35-7.45) 12/24/23 00:02 POC pCO2 54 mmHg (35-46) H 12/24/23 00:02 POC pO2 87 mmHg (80-95) 12/24/23 00:02 POC HCO3 33 jameel/L (19-24) H 12/24/23 00:02 POC Total CO2 34 mmol/L (24-31) H 12/24/23 00:02 POC Base Excess 8.0 jameel/L (-9-1.8) H 12/24/23 00:02 POC ABG O2 Sat 96.0 % (90-95) H 12/24/23 00:02 POC Sodium 137 mmol/L (135-144) 12/24/23 00:02 Sodium 139 mmol/L (136-145) 12/24/23 00:13 POC Potassium 4.4 mmol/L (3.3-5.0) 12/24/23 00:02 Potassium 4.6 mmol/L (3.5-5.1) 12/24/23 01:41 Chloride 98 mmol/L (98-107) 12/24/23 00:13 Carbon Dioxide 33 mmol/L (21-32) H 12/24/23 00:13 Anion Gap 8 (3-11) 12/24/23 00:13 BUN 19 mg/dl (6-23) 12/24/23 00:13 Creatinine 0.55 mg/dl (0.6-1.2) L 12/24/23 00:13 Est Cr Clr Drug Dosing 76.2 ml/min 12/24/23 00:13 eGFR 90.89 12/24/23 00:13 BUN/Creatinine Ratio 34.5 (10-20) H 12/24/23 00:13 Glucose 170 mg/dl (70-99(Fasting)) H 12/24/23 00:13 Lactate 1.1 mmol/L (0.4-2.0) 12/24/23 01:41 Calcium 10.0 mg/dl (8.6-10.3) 12/24/23 00:13 Total Bilirubin 0.5 mg/dl (0.2-1.0) 12/24/23 00:13 AST 14 U/L (13-39) 12/24/23 01:41 ALT 12 U/L (7-52) 12/24/23 00:13 Alkaline Phosphatase 132 U/L (34-104) H 12/24/23 00:13 Troponin I High Sens 25.1 pg/ml (0-14) H 12/24/23 00:13 Total Protein 8.1 gm/dl (6.0-8.3) 12/24/23 00:13 Albumin 4.0 gm/dl (3.4-5.0) 12/24/23 00:13 Globulin 4.1 gm/dl (2.5-4.0) H 12/24/23 00:13 Albumin/Globulin Ratio 1.0 (0.9-2) 12/24/23 00:13 Procalcitonin 0.05 ng/ml (0-0.5) 12/24/23 01:41 Adenovirus (PCR) Not Detected (NotDetected) 12/24/23 01:25 B. pertussis DNA (PCR) Not Detected (NotDetected) 12/24/23 01:25 B.parapertussis DNA PCR Not Detected (NotDetected) 12/24/23 01:25 C. pneumoniae DNA (PCR) Not Detected (NotDetected) 12/24/23 01:25 Coronavirus OC43 (PCR) Not Detected (NotDetected) 12/24/23 01:25 Coronavirus HKU1 (PCR) Not Detected (NotDetected) 12/24/23 01:25 Coronavirus 229E (PCR) Not Detected (NotDetected) 12/24/23 01:25 SARS-CoV-2 (PCR) Not Detected (NotDetected) 12/24/23 01:25 Coronavirus NL63 (PCR) Not Detected (NotDetected) 12/24/23 01:25 Human Metapneumovir PCR Not Detected (NotDetected) 12/24/23 01:25 Influenza Type A (PCR) Not Detected (NotDetected) 12/24/23 01:25 Influenza Type B (PCR) Not Detected (NotDetected) 12/24/23 01:25 M. pneumoniae (PCR) Not Detected (NotDetected) 12/24/23 01:25 Parainfluenza 1 (PCR) Not Detected (NotDetected) 12/24/23 01:25 Parainfluenza 2 (PCR) Not Detected (NotDetected) 12/24/23 01:25 Parainfluenza 3 (PCR) Not Detected (NotDetected) 12/24/23 01:25 Parainfluenza 4 (PCR) Not Detected (NotDetected) 12/24/23 01:25 RSV (PCR) Not Detected (NotDetected) 12/24/23 01:25 Entero/Rhino (PCR) Not Detected (NotDetected) 12/24/23 01:25 Impressions Chest X-Ray 12/23/23 23:56 EXAM: XR chest 1V portable CLINICAL HISTORY: DYSPNEA F INPATIENT TECHNIQUE: X-ray image of the chest was obtained in frontal projection. COMPARISON: No prior studies available for comparison. FINDINGS: Pulmonary Parenchyma: Blunting of bilateral costophrenic angles with subtle opacities in lower zones, could be pleural effusion /thickening with subsegmental collapse/infiltrates. No evidence of consolidation. No pulmonary nodules identified. Fibrotic marking noted in the right upper zone. Biapical minimal pleural thickening. Heart and Mediastinum: Heart size and shape are normal. No mediastinal widening or masses. No hilar or mediastinal lymphadenopathy. Aortic arch calcification. Bony Thorax: Bony thorax appears intact. Left shoulder joint osteoarthritis. Soft Tissues: Soft tissues overlying the chest wall are unremarkable. IMPRESSION: 1. Blunting of bilateral costophrenic angles. could be pleural effusion /thickening 2. Subtle opacities in lower zones. Could be subsegmental collapse/infiltrates. 3. Clinical correlation and CT chest is recommended for further evaluation. Electronically signed by Larissa Nichole 12-24-2023 01:38 AM Code Status & VTE Plan Code Status Full code PG Care Time/CCT Total # of Minutes Spent Total Time Spent with Patient: Total time spent is greater than 50% in coordination of care (as documented) at patient's floor/unit and/or counseling patient: Coding Level of Care Code 46518 INT INP/OBS CARE 3/75MIN Diagnoses Acute on chronic respiratory failure with hypoxia J96.21 Aspiration pneumonia J69.0 Oxygen dependent Z99.81
[2023-12-24 02:35] LABS: Adenovirus PCR Not Detected (NotDetected); Bordetella parapertussis PCR Not Detected (NotDetected); Bordetella pertussis PCR Not Detected (NotDetected); Chlamydia pneumoniae PCR Not Detected (NotDetected); Coronavirus 229E PCR Not Detected (NotDetected); Coronavirus CoV-2 (COVID19)PCR Not Detected (NotDetected); Coronavirus HKU1 PCR Not Detected (NotDetected); Coronavirus NL63 PCR Not Detected (NotDetected); Coronavirus OC43PCR Not Detected (NotDetected); Human Metapneumovirus PCR Not Detected (NotDetected); Influenza A PCR Not Detected (NotDetected); Influenza B PCR Not Detected (NotDetected); Mycoplasma pneumoniae PCR Not Detected (NotDetected); Parainfluenza Virus 1 PCR Not Detected (NotDetected); Parainfluenza Virus 2 PCR Not Detected (NotDetected); Parainfluenza Virus 3 PCR Not Detected (NotDetected); Parainfluenza Virus 4 PCR Not Detected (NotDetected); Respiratory Syncytial VirusPCR Not Detected (NotDetected); Rhinovirus/Enterovirus PCR Not Detected (NotDetected)
[2023-12-24] MEDS ORDERED: ONDANSETRON INJ 2 MG/ML 2 ML VIAL IV PRN (04:26)
[2023-12-24] MEDS: OLANZapine 10 MG/2.1 ML SDV IM STA (05:08)
[2023-12-24] MEDS: methylPREDNISolone 40 MG in SYRINGE 0 ML IV SCH (05:09)
[2023-12-24] MEDS ORDERED: methylPREDNISolone 125 MG/2 ML VIAL IV STA (05:16)
[2023-12-24] MEDS: methylPREDNISolone 80 MG in SYRINGE 0 ML IV STA (05:27)
--- NOTE | 2023-12-24 05:47 | Communication Note ---
Date of Service: December 24, 2023 Notified by nursing ~4:30AM that pt's breathing acutely worsened. Nursing was able to moisten pt's mouth/tongue which led to an improvement in her breathing. Nursing again notified ~5:00AM d/t recurrent labored breathing. I examined the pt at bedside who was found to have labored breathing with obvious use of accessory muscles, although pt's oxygen was in the 90s. Pt's lung CTA with component of intermittent stridor. Notified Dr. Brennan of situation who also presented to bedside. Pt was ordered 80mg IV methylprednisolone (in addition to the 40mg pt had just received). Due to pt's acute respiratory decompensation, she was transferred to the ICU for further management and intubation. Resident Activity Tracking Resident Involvement: Resident Care Provided Care Provided: Adult Hospital Medicine
[2023-12-24 05:48] LABS: Basophils # (auto) 0.03 K/uL (0.00-0.20); Basophils % (auto) 0.1 %; Hematocrit (blood only) 42.8 % (37.0-47.0); Hemoglobin 13.1 g/dl (12.0-16.0); Immature Granulocytes # (auto) 0.17 K/uL (0.01-0.20); Immature Granulocytes % (auto) 0.8 %; Lymphocytes # (auto) 2.66 K/uL (1.20-3.40); Lymphocytes % (auto) 12.4 %; Mean Corpuscular Hemoglobin 27.4 pg (25.0-34.0); Mean Corpuscular Hgb Conc 30.6 g/dL (32.0-36.0); Mean Corpuscular Volume 89.5 fL (80.0-100.0); Mean Platelet Volume 10.5 fL (9.4-12.4); Monocytes # (auto) 0.18 K/uL (0.11-0.59); Monocytes % (auto) 0.8 %; Neutrophils # (auto) 18.41 K/uL (1.40-6.50); Neutrophils % (auto) 85.9 %; Platelet Count 321 K/uL (130-400); RDW Coefficient of Variation 15.3 % (11.5-14.5); RDW Standard Deviation 50.8 fL (36.4-46.3); Red Blood Count 4.78 M/uL (4.20-5.40); White Blood Count 21.45 K/ul (4.8-10.8)
[2023-12-24 06:02] LABS: Albumin Level 4.2 gm/dl (3.4-5.0); BUN Creatinine Ratio 37.9 (10-20); Bilirubin,Total 0.6 mg/dl (0.2-1.0); Creatinine Clr Calc Pharmacy 72.3 ml/min; Globulin 4.2 gm/dl (2.5-4.0); Potassium 4.3 mmol/L (3.5-5.1); Total Protein 8.4 gm/dl (6.0-8.3)
[2023-12-24] MEDS ORDERED: STAT IV Infusion **Titration per Protocol STA ×3 (06:06→10:49)
[2023-12-24] MEDS ORDERED: PROPOFOL BOLUS FROM BAG IV PRN (06:06)
--- NOTE | 2023-12-24 06:15 | Emergency Department Note ---
ED Visit Note Endotracheal Intubation Indication Respiratory failure. The patient was on oxygen via BiPAP prior to the procedure. Suction, airway equipment, RSI drugs, respiratory equipment, and appropriate personnel were prepared prior to the initiation of the procedure. A time out was taken. Induction was performed with etomidate and succinylcholine. unfortunately, the IV used was not patent and the medications were believed to have gone subcutaneous. Patient did not have complete paralysis. I was able to insert the glide scope and visualize her airway but could not pass the endotracheal tube. She was given IV Versed through a different IV site. After observing the clinical benefit of the medications, the airway was easily visualized utilizing a glide scope. A 7.5 size ETT tube was placed atraumatically to 25 cm at the teeth using standard technique. The cuff inflated without signs of malfunction. There were bilateral breath sounds, positive colormetric change, no gastric sounds and post procedure pulse oximetry was 98%. Post intubation sedation and paralysis was administered using rocuronium. the patient tolerated the procedure well. .
[2023-12-24 06:31] LABS: iSTAT Arterial Blood Gas HCO3 35 meg/L (19-24); iSTAT Arterial Blood Gas pCO2 81 mmHg (35-46); iSTAT Arterial Blood Gas pH 7.24 (7.35-7.45); iSTAT Arterial Blood Gas pO2 65 mmHg (80-95); iSTAT Carbon Dioxide 37 mmol/L (24-31); iSTAT Hematocrit 44 % (37-47); iSTAT Potassium 4.3 mmol/L (3.3-5.0); iSTAT Sodium 140 mmol/L (135-144)
--- NOTE | 2023-12-24 06:38 | Critical Care Consultation ---
Date of Consultation December 24, 2023 Assessment & Plan (1) Acute on chronic respiratory failure with hypoxia and hypercapnia: (2) Mood disorder: (3) Hyperlipidemia: (4) Aspiration pneumonia: Plan Reason Critically Ill: 83-year-old female presents to the ICU following admiss ion to PCU from the emergency department in which she was being treated for aspiration pneumonia with hypoxia. Patient decompensated from respiratory standpoint now with hypercapnia and hypoxia on ABG despite being on BiPAP, required intubation emergently and transferred to ICU. Neuro - Sedation: Propofol Mood disordercontinue home meds when appropriate Cardiac - Patient currently hemodynamically stable. Currently tachycardic, unsure if this is due to respiratory distress or underlying PE. Under going CTA chest at this time. - TTE 11/25/2023 with normal EF 55 to 60%, no regional wall motion abnormalities. Mild left ventricular hypertrophy - Hold antihypertensives - Continuous monitoring on telemetry HLDcontinue statin when appropriate Respiratory - Acute on chronic respiratory failure with hypercapnia and hypoxiachest x-ray concerning for aspiration pneumonia. Initially requiring 4 L nasal cannula on admission, but decompensated from respiratory standpoint and failed BiPAP, requiring emergent intubation. She was recently admitted to ICU in November where she was intubated for aspiration as well. She appears to have refused swallow study postintubation at that time. - CTA chest pending to rule out PE - Continue nebs as needed - See ID for treatment of pneumonia - Continuous end-tidal CO2 and pulse ox monitoring GI - N.p.o. for now RENAL/LYTES - Creatinine within normal limits, no significant electrolyte abnormalities. Monitor routine BMPs. Replete electrolytes as indicated - Foleystrict I's and O's ENDO - No history of diabetes or thyroid disease, currently euglycemic. ICU hyperglycemic protocol HEME - H&H stable, monitor routine CBC ID - Pneumoniaseems to be improving compared to chest x-ray 11/2023 -- Source of infection is likely UTI She had E. coli which was sensitive to cephalosporins in November 2023 - BioFire negative, nasal MRSA negative - Blood cultures and sputum culture pending --Prophylaxis VTE: Heparin GI: Lansoprazole Lines: Peripheral Diet: Tube feeds Supervising Physician Co-Signing Physician Notes I saw and evaluated the patient with NIURKA Robin, and agree with findings and plan as documented in the note. CTA chest 12/24/2023 personally reviewed: Patchy opacities appreciated in the right lower lobe Minimal apical pleural scarring Dependent atelectasis bilateral lower lobes Minimal hilar and mediastinal lymphadenopathy Patient seen and examined at bedside. No acute distress, no adverse events overnight She was on propofol 15 at the time of examination. She was breathing with the vent. Saturation was 96-97% on 70% FiO2. MAP was 75 with heart rate in the low 70s. Constitutional: No acute distress HEENT: PERRLA Respiratory system: Decreased air entry bilaterally, no wheeze, no rhonchi, positive crackles bilateral lower lobes CVS: S1-S2 positive, no murmurs or gallops Abdomen: Soft, nontender, nondistended, positive bowel sounds x4 Extremities: +2 pulses bilaterally radialis/ dorsalis pedis, no cyanosis, no edema Neuro: Intubated and sedated, positive pupillary, positive gag, moving extremities to pain Psych: Unable to assess G/U: Positive Jung Plan: The reason for intubation is most likely hypercapnic respiratory failure from medication DC extended release morphine. DC propofol and start her on fentanyl as needed Will keep the patient on restraints. Continue with antibiotics. I think there is significant improvement in patient's pneumonia compared to when she was here on the last visit The source of infection is most likely UTI. Will change Rocephin to p.o. cefuroxime. Start the patient on tube feeds Discontinue Solu-Medrol Procalcitonin is negative, nasal MRSA negative I have personally spent 55 minutes of critical care time in the direct management of this patient. This is a life/limb threatening event. This includes time spent evaluating patient, direct bedside care, chart review, placing orders, interpretation of diagnostic studies, discussion with consultants, patient, and family members, as well as other required patient management activities. This time is exclusive of all separately billable procedures, and teaching time and separate from and in addition to any other critical care service time. Thank you for allowing us to participate in the care of this patient. Please refer to my attending physician's documentation for any further recommendations. History of Present Illness Attending Physician: Jayro Brennan MD History of Present Illness Patient is an 83-year-old female with past medical history of mood disorder, hyperlipidemia, and recent admission where she was intubated for aspiration pneumonia and she also underwent treatment for UTI. She is currently a resident at [facility]. She presented to the emergency department earlier this evening With complaints of shortness of breath. Chest x-ray consistent with aspiration and she was started on broad-spectrum antibiotics and admitted to PCU. She was initially on 4 L nasal cannula, with relatively normal ABG. I was notified by the primary team that the patient had decompensated from a respiratory raine dpoint and was now labored breathing on BiPAP. Repeat ABG showed worsening respiratory acidosis with CO2 80, and pO2 65 on 40% FiO2. Patient was unresponsive and not able to tolerate BiPAP and decision was made to transfer to the ICU for emergent intubation. Emergency department proceeded with intubation and patient now remains in ICU for further management at this time. Allergies Allergy/AdvReac Type Severity Reaction Status Date / Time thimerosal Allergy Unknown unknown Verified 11/25/23 00:06 Home Medications Medication Instructions Recorded Confirmed Type acetaminophen 325 mg tablet 650 mg PO Q6 PRN Fever Or Pain 11/25/23 12/24/23 History aripiprazole 2 mg tablet 2 mg PO HS 11/25/23 12/24/23 History atorvastatin 10 mg tablet 10 mg PO HS 11/25/23 12/24/23 History diclofenac sodium 1 % topical gel 1 g topical .DAY & EVENING SHIFT 11/25/23 12/24/23 History divalproex 125 mg capsule,delayed 125 mg PO DAILY 11/25/23 12/24/23 History release sprinkle menthol 0.1 % lotion (Eucerin Itch 1 ea topical BID 11/25/23 12/24/23 History Relief) mirtazapine 15 mg tablet 15 mg PO HS 11/25/23 12/24/23 History morphine 15 mg tablet,extended 15 mg PO BID 11/25/23 12/24/23 History release multivitamin with minerals 1 tab PO DAILY 11/25/23 12/24/23 History (Multiple Vitamin-Minerals tablet) naproxen sodium 220 mg tablet 220 mg PO Q12 PRN L SHOULDER PAIN 11/25/23 12/24/23 History venlafaxine 75 mg capsule,extended 75 mg PO BID 11/25/23 12/24/23 History release 24 hr diclofenac sodium 1 % topical gel 1 ea topical BID 12/24/23 12/24/23 History Patient History Social History Smoking Status: Unknown if ever smoked Hx Alcohol Use: No Hx Substance Use: No Preferred Language: French Communication Ability: Effective Tanning Wheel Operator Required: No Beliefs That Will Affect Care: None Current Living Situation: Skilled Nursing Other Information That Helps Us Care for You: No Feels Safe at Home: Yes Safety Concerns: Feels Safe At This Time Review of Systems Review of Systems: Unobtainable due to endotracheal tube Physical Exam Constitutional: + ill appearing, + thin and + mechanical ly ventilated Eyes: PERRL, conjunctivae normal, anicteric sclerae ENMT: external ear and nose normal, oropharynx normal Neck: trachea midline, no thyromegaly Respiratory: Mechanically ventilated, symmetrical chest wall movement. Bilateral rhonchi auscultated with diminished bases. Cardiovascular: Rate/Rhythm: + tachycardic Heart Sounds: normal S1 and normal S2 Vessels: no JVD Gastrointestinal (Abdomen): normal bowel sounds, soft, nontender, no hepatosplenomegaly Musculoskeletal: No musculoskeletal abnormalities noted on exam. Exam limited due to sedation Skin: no rashes, warm and dry Neurologic: Unable to assess due to sedation/paralytics Psychiatric: Exam limited due to sedation/paralytics Genitourinary: Indwelling Jung catheter present. Urine cloudy, yellow Results & Data Results & Data Vital Signs (Past 12 Hours) Vital Signs Temp Pulse Pulse Resp BP BP Pulse Ox 12/24/23 03:49 97 H 12/24/23 02:00 93 H 22 129/70 92 12/24/23 01:00 95 H 20 146/87 H 100 12/24/23 00:34 102 H 25 H 94 12/24/23 00:17 12/24/23 00:17 12/24/23 00:17 96 12/24/23 00:01 103 H 12/23/23 23:56 36.7 C 102 H 22 142/87 H 96 O2 Del Method O2 Flow Rate FiO2 12/24/23 03:49 12/24/23 02:00 Nasal Cannula 4 12/24/23 01:00 BiPAP 12/24/23 00:34 50 12/24/23 00:17 BiPAP 12/24/23 00:17 BiPAP 12/24/23 00:17 BiPAP 12/24/23 00:01 12/23/23 23:56 BiPAP Coding Level of Care Code 76062 CRITICAL CARE 1ST 30-74M Diagnoses Acute on chronic respiratory failure with hypoxia and hypercapnia J96.21; J96.22 Mood disorder F39 Hyperlipidemia E78.5 Aspiration pneumonia J69.0
[2023-12-24] MEDS: OPTIRAY 320 125ml IV ONE (06:40)
--- NOTE | 2023-12-24 07:04 | XRay Report ---
EXAM: XR chest 1V portable CLINICAL HISTORY: intubation og placement [facility] INPATIENT TECHNIQUE: An X-ray image of the chest was obtained in frontal projection. COMPARISON: 12/23/2023 FINDINGS: Multiple frontal radiographs were sent with one showing the ETT application with its tip 7mm from the isaiah (needs to be pulled up) and the one image showing the ETT 29 mm above the isaiah (05:23:25). NGT is in a good position with its tib below the diaphragm. Pulmonary Parenchyma: Blunting of bilateral costophrenic angles with subtle opacities in lower zones could be pleural effusion /thickening with subsegmental collapse/infiltrates. No otherwise evidence of consolidation. Possible nodular opacities at the right lower zones. Fibrotic marking was noted in the right upper zone. Biapical minimal pleural thickening. Heart and Mediastinum: Heart size and shape are normal. No mediastinal widening or masses. No hilar or mediastinal lymphadenopathy. Aortic arch calcification. Bony Thorax: The bony thorax appears intact. Left shoulder joint osteoarthritis. Soft Tissues: Soft tissues overlying the chest wall are unremarkable. IMPRESSION: 1. Multiple frontal radiographs were sent with one showing the ETT with its tip 7mm from the isaiah (needs to be pulled up) and the other image showing the ETT 29 mm above the isaiah (adequate position but better pulled a further 2 cm) (05:23:25). Correlation with the current state of the ETT is advised (new finding). 2. NGT in a good position with its tip below the diaphragm (new finding). 3. Otherwise no interval changes. Electronically signed by Larissa Nichole 12-24-2023 07:03 AM
--- NOTE | 2023-12-24 07:17 | CT Scan Report ---
EXAM: CT angio chest PE protocol CLINICAL HISTORY: sob r/o pe 112mlopti 320 INPATIENT TECHNIQUE: Contiguous axial CT images of the chest were acquired with the administration of intravenous contrast (112ml Omni 320) to visualize the pulmonary arteries and their branches. Coronal and sagittal reconstructions were obtained. One of the following dose reduction techniques was utilized for this exam: Automated exposure control, adjustment of the mA and/or kV according to patient size, use of iterative reconstruction. One of these 3D techniques was utilized: Maximum Intensity Pixel (MIP), 3D Reconstructed Images, Volume Rendered Images, Surface Shaded Rendering. COMPARISON: None. FINDINGS: Right and left main pulmonary arteries as well as segmental branches appear of normal caliber without evidence of any filling defect. No evidence of gross pulmonary arterial thrombosis was identified. Bilateral lower lobar subsegmental collapse. A few right lower and peripheral consolidation areas could be infected, so follow-up is needed. Bilateral apical reticulations and scattered fibro-atelectatic bands. No pulmonary masses or suspicious nodules. Heart size is mildly enlarged. There is no pericardial effusion. No pleural effusion. Minimal basal pleural thickening. Enlarged mediastinal and bilateral hilar lymph nodes. The largest approximately measures 1.5 cm at the right paratracheal group. There is no definite mass lesion in the chest wall. Aortic atheromatous calcification. Scanned abdominal Cuts show cirrhotic liver configuration. ETT is seen just before the level of the isaiah. Needs to be pulled up. NGT in situ. IMPRESSION: 1. No evidence of acute pulmonary arterial thromboembolic disease. 2. Bilateral lower lobar subsegmental collapse. 3. Bilateral apical reticulations and scattered fibro-atelectatic bands. 4. ETT is seen just before the level of the isaiah. Needs to be pulled up. 5. Mildly enlarged mediastinal and hilar lymph nodes. 6. A few right lower and peripheral consolidation areas could be infected, so follow-up is needed. Electronically signed by Larissa Nichole 12-24-2023 07:16 AM
[2023-12-24] MEDS: NOREPINEPHRINE/D5W 4 MG/250 ML PLCT IV SCH (07:22)
[2023-12-24] MEDS: propofoL 1,000 MG/100 ML VIAL IV SCH (07:23)
[2023-12-24] MEDS: NOREPINEPHRINE/D5W 4 MG/250 ML IV ONE (07:23)
[2023-12-24] MEDS: RAPID SEQUENCE INDUCTION BAG ONE (07:23)
[2023-12-24] MEDS: PROPOFOL IV EMULSION 10 MG/ML 100 ML VIAL IV ONE (07:24)
[2023-12-24 07:27] LABS: iSTAT Allen Test Pass; iSTAT Art Bld Gas pCO2 Correct 36 mmHg (35-46); iSTAT Art Bld Gas pH Corrected 7.495 (7.35-7.45); iSTAT Arterial Blood Gas HCO3 28 meg/L (19-24); iSTAT Arterial Blood Gas pCO2 36 mmHg (35-46); iSTAT Arterial Blood Gas pH 7.49 (7.35-7.45); iSTAT Arterial Blood Gas pO2 70 mmHg (80-95); iSTAT Arterial Blood Gas pO2 C 69; iSTAT Carbon Dioxide 29 mmol/L (24-31); iSTAT FiO2 70 %; iSTAT Hematocrit 35 % (37-47); iSTAT Hemoglobin 11.9 g/dl (12.0-16.0); iSTAT Potassium 4.2 mmol/L (3.3-5.0); iSTAT Sample Type Arterial; iSTAT Site R Radial; iSTAT Sodium 136 mmol/L (135-144); iSTAT SpO2 97
--- NOTE | 2023-12-24 08:21 | Hospitalist Progress Note ---
Date of Service December 24, 2023 Assessment & Plan (1) Acute on chronic respiratory failure with hypoxia: Plan: Acute on chronic respiratory failure with hypoxia, chronically on 2 L acute decompensation due to aspiration pneumonia-requiring mechanical ventilation concern for aspiration pneumonia - BioFire testing negative Zosyn 4.5 g changed to daptomycin and flagyl Solu-Medrol 40 mg IV every 12 hours Troponin 25.1, is likely elevated to supply/demand mismatch, with follow-up ordered (2) History of psychosis: Plan: Continue divalproex 125 mg every morning, mirtazapine 15 mg at bedtime, v enlafaxine 75 mg twice a day and aripiprazole 2 mg at bedtime For chronic pain continue morphine 15 mg p.o. twice daily Admission and Anticipated Discharge Date Admission Date: December 24, 2023 Subjective intubated and sedated appears comfortable Physical Exam Physical Exam: coarse bilateral breath sounds Results & Data Results & Data Vital Signs (Past 12 Hours) Vital Signs Temp Pulse Pulse Pulse Resp BP BP 12/24/23 07:39 97.9 F 71 16 12/24/23 07:32 101 H 18 12/24/23 07:21 98.1 F 79 16 12/24/23 07:12 98.1 F 101 H 16 80/51 L 12/24/23 07:00 98.1 F 83 15 113/65 12/24/23 06:56 76 18 12/24/23 06:27 112 H 18 94/45 L 12/24/23 06:11 12/24/23 06:00 98.1 F 110 H 81/49 L 12/24/23 06:00 12/24/23 05:45 119 H 24 164/104 H 12/24/23 05:00 97.6 F 102 H 22 120/69 12/24/23 05:00 12/24/23 04:41 100 H 12/24/23 03:49 97 H 12/24/23 02:00 93 H 22 129/70 12/24/23 01:00 95 H 20 146/87 H 12/24/23 00:34 102 H 25 H 12/24/23 00:17 12/24/23 00:17 12/24/23 00:17 12/24/23 00:01 103 H 12/23/23 23:56 98.1 F 102 H 22 142/87 H Pulse Ox Pulse Ox O2 Del Method O2 Del Method O2 Flow Rate FiO2 12/24/23 07:39 100 12/24/23 07:32 97 70 12/24/23 07:21 98 Mechanical Vent 70 12/24/23 07:12 96 Mechanical Vent 70 12/24/23 07:00 100 Mechanical Vent 70 12/24/23 06:56 96 100 12/24/23 06:27 100 Mechanical Vent 70 12/24/23 06:11 Oxymask 4 12/24/23 06:00 100 Mechanical Vent 70 12/24/23 06:00 100 Mechanical Vent 12/24/23 05:45 99 BiPAP 12/24/23 05:00 95 Oxymask 4 12/24/23 05:00 Oxymask 4 12/24/23 04:41 12/24/23 03:49 12/24/23 02:00 92 Nasal Cannula 4 12/24/23 01:00 100 BiPAP 12/24/23 00:34 94 50 12/24/23 00:17 BiPAP 12/24/23 00:17 BiPAP 12/24/23 00:17 96 BiPAP 12/24/23 00:01 12/23/23 23:56 96 BiPAP Laboratory Results reviewed cbc reviewed chemistry PG Care Time/CCT Total # of Minutes Spent Total Time Spent with Patient: Total time spent is greater than 50% in coordination of care (as documented) at patient's floor/unit and/or counseling patient: Coding Level of Care Code 46595 SUB INP/OBS CARE 3/50MIN Diagnoses Acute on chronic respiratory failure with hypoxia J96.21 History of psychosis Z86.59
[2023-12-24 08:43] LABS: Appearance Urine Cloudy (Clear); Bacteria Urine Automated 4+ (None Seen); Bilirubin Urine Negative (Negative); Blood Urine Negative (Negative); Color Urine Yellow; Epithelial Cell Urine Auto 0-2 /hpf (0-2); Glucose Urine UA Negative (Negative); Ketones Urine Negative (Negative); Leukocyte Esterase Urine 3+ (Negative); Nitrite Urine Positive (Negative); Protein Urine 1+ (Negative); RBC Urine Automated 0-2 /hpf (0-2); Urobilinogen Urine Negative (Negative); WBC Urine Automated >50 /hpf (0-5); pH Urine 6.5 (4.5-7.5)
[2023-12-24] MEDS: PIPERACILLIN/TAZOBACTAM 4.5 GM/100 ML BAG IV SCH (09:05)
[2023-12-24] MEDS: CEROVITE ADV FORMULA TAB PO SCH (09:11)
[2023-12-24] MEDS: VENLAFAXINE HCL XR 75 MG CAPXR PO SCH (09:11)
[2023-12-24] MEDS: DIVALPROEX SODIUM SPRINKLE/DEL-REL 125 MG CAP PO SCH (09:11)
[2023-12-24] MEDS: MoRPHine SULFATE CR 15 MG TABCR PO SCH (09:11)
[2023-12-24] MEDS: EUCERIN CR 120 GM JAR TOP SCH (09:19)
[2023-12-24] MEDS: HEPARIN SOD 5,000 UNIT/0.5 ML VIAL SQ SCH (09:19)
--- NOTE | 2023-12-24 10:33 | Electrocardiogram Report ---
Test Reason : Blood Pressure : */* mmHG Vent. Rate : 102 BPM Atrial Rate : 102 BPM P-R Int : 148 ms QRS Dur : 134 ms QT Int : 398 ms P-R-T Axes : 56 -70 72 degrees QTcB Int : 518 ms Sinus tachycardia Possible Left atrial enlargement Right bundle branch block Left anterior fascicular block Bifascicular block Left ventricular hypertrophy with repolarization abnormality ( R in aVL ) Cannot rule out Septal infarct (cited on or before 24-Nov-2023) Abnormal ECG When compared with ECG of 27-Nov-2023 07:21, Questionable change in initial forces of Septal leads T wave inversion less evident in Anterior leads Confirmed by Piotr De La Vega ([id number]) on 12/24/2023 10:33:03 AM Referred By: Marc Bravo Confirmed By: Piotr De La Vega
[2023-12-24] MEDS ORDERED: fentaNYL BOLUS from BAG IV PRN (10:49)
[2023-12-24] MEDS ORDERED: GLUCAGON FOR INJ 1 MG VIAL SQ PRN (11:00)
[2023-12-24] MEDS ORDERED: CARBOHYDRATES FOR HYPOGLYCEMIA PO PRN (11:00)
[2023-12-24] MEDS ORDERED: GLUCOSE 40% GEL 15 GM TUBE PO PRN (11:00)
[2023-12-24] MEDS ORDERED: DEXTROSE 50% 50 ML SYRINGE IV PRN (11:00)
[2023-12-24] MEDS ORDERED: GLUCOSE 10 TAB/TUBE PO PRN (11:00)
[2023-12-24] MEDS: fentaNYL citrate 2,500 MCG/250 ML BAG IV SCH (11:45)
[2023-12-24] MEDS: LANSOPRAZOLE 30 MG SOLTAB NG SCH (12:09)
[2023-12-24] MEDS: INSULIN ASPART PER UNIT CHARGE SC SCH (12:46)
[2023-12-24] MEDS: TUBE FEEDING WATER FLUSH OG SCH (14:05)
[2023-12-24] MEDS: PEPTAMEN 1.5 CAL 1,000 ML BAG OG SCH (14:05)
[2023-12-24] MEDS: ARIPIprazole 1 MG/ML ORAL SOLN 150 ML BTL PO SCH (20:50)
[2023-12-24] MEDS: ATORVASTATIN 10 MG TAB PO SCH (20:52)
[2023-12-24] MEDS: MIRTAZAPINE TAB 15 MG TAB PO SCH (20:53)
[2023-12-25 04:24] LABS: iSTAT Art Bld Gas pCO2 Correct 30 mmHg (35-46); iSTAT Art Bld Gas pH Corrected 7.535 (7.35-7.45); iSTAT Arterial Blood Gas HCO3 25 meg/L (19-24); iSTAT Arterial Blood Gas pCO2 29 mmHg (35-46); iSTAT Arterial Blood Gas pH 7.54 (7.35-7.45); iSTAT Arterial Blood Gas pO2 99 mmHg (80-95); iSTAT Arterial Blood Gas pO2 C 102; iSTAT Carbon Dioxide 26 mmol/L (24-31); iSTAT FiO2 40 %; iSTAT Hematocrit 33 % (37-47); iSTAT Hemoglobin 11.2 g/dl (12.0-16.0); iSTAT Potassium 3.4 mmol/L (3.3-5.0); iSTAT Sample Type Arterial; iSTAT Site L Brachial; iSTAT Sodium 137 mmol/L (135-144); iSTAT SpO2 98
[2023-12-25 05:11] LABS: Albumin Level 3.2 gm/dl (3.4-5.0); BUN Creatinine Ratio 47.7 (10-20); Calcium 8.7 mg/dl (8.6-10.3); Creatinine Clr Calc Pharmacy 64.5 ml/min; Magnesium 1.7 mg/dl (1.7-2.4); Phosphorus 2.4 mg/dl (2.5-4.9); Potassium 3.5 mmol/L (3.5-5.1)
[2023-12-25 05:19] LABS: Basophils # (auto) 0.02 K/uL (0.00-0.20); Basophils % (auto) 0.1 %; Eosinophils # (auto) 0.03 K/uL (0.00-0.50); Eosinophils % (auto) 0.1 %; Hemoglobin 10.7 g/dl (12.0-16.0); Immature Granulocytes # (auto) 0.09 K/uL (0.01-0.20); Immature Granulocytes % (auto) 0.4 %; Lymphocytes # (auto) 4.04 K/uL (1.20-3.40); Lymphocytes % (auto) 19.6 %; Mean Corpuscular Hemoglobin 27.2 pg (25.0-34.0); Mean Corpuscular Hgb Conc 31.5 g/dL (32.0-36.0); Mean Corpuscular Volume 86.3 fL (80.0-100.0); Mean Platelet Volume 11.2 fL (9.4-12.4); Monocytes # (auto) 1.89 K/uL (0.11-0.59); Monocytes % (auto) 9.2 %; Neutrophils # (auto) 14.57 K/uL (1.40-6.50); Neutrophils % (auto) 70.6 %; Platelet Count 302 K/uL (130-400); RDW Coefficient of Variation 15.8 % (11.5-14.5); RDW Standard Deviation 49.6 fL (36.4-46.3); Red Blood Count 3.94 M/uL (4.20-5.40); White Blood Count 20.64 K/ul (4.8-10.8)
[2023-12-25] MEDS ORDERED: POTASSIUM PHOS 3 MMOL/1 ML INFUSION IV STA (05:53)
[2023-12-25] MEDS: MAGNESIUM SULFATE / D5W 1 GM/100 ML BAG IV SCH (06:38)
[2023-12-25] MEDS: POTASSIUM PHOSPHATE 15 MMOL in DEXTROSE 5% 250 ML IV ONE (06:39)
--- NOTE | 2023-12-25 07:59 | Critical Care Progress Note ---
Date of Service December 25, 2023 Assessment & Plan (1) Acute on chronic respiratory failure with hypoxia and hypercapnia: (2) Mood disorder: (3) Hyperlipidemia: (4) Aspiration pneumonia: Plan Reason Critically Ill: 83-year-old female presents to the ICU following admission to PCU from the emergency department in which she was being treated for aspiration pneumonia with hypoxia. Patient decompensated from respiratory standpoint now with hypercapnia and hypoxia on ABG despite being on BiPAP, required intubation emergently and transferred to ICU. Neuro - Mood disordercontinue home meds when appropriate Cardiac - -- No acute issues - TTE 11/25/2023 with normal EF 55 to 60%, no regional wall motion abnormalities. Mild left ventricular hypertrophy - Hold antihypertensives - Continuous monitoring on telemetry HLDcontinue statin when appropriate Respiratory - CTA chest 12/24/2023 personally reviewed: Patchy opacities appreciated in the right lower lobe Minimal apical pleural scarring Dependent atelectasis bilateral lower lobes Minimal hilar and mediastinal lymphadenopathy -- Acute on chronic respiratory failure with hypercapnia and hypoxia Intubated 12/24/2023, self extubated 12/25/2023 - Continue nebs as needed - Continuous end-tidal CO2 and pulse ox monitoring GI - N.p.o. for now RENAL/LYTES - -- Monitor BUNs/creatinine Avoid nephrotoxic medications - Foleystrict I's and O's ENDO - No history of diabetes or thyroid disease, currently euglycemic. ICU hyperglycemic protocol HEME - H&H stable, monitor routine CBC ID - Pneumoniaseems to be improving compared to chest x-ray 11/2023 -- Source of infection is likely UTI She had E. coli which was sensitive to cephalosporins in November 2023 - BioFire negative, nasal MRSA negative - Blood cultures and sputum culture pending --Prophylaxis VTE: Heparin GI: Lansoprazole Lines: Peripheral Diet: Tube feeds Plan: In/out: Positive 424, urine output 610 I do think patient is going to benefit from BiPAP nightly and as needed shortness of breath but given her mood disorder I think this will be difficult to achieve The patient had altered then I would recommend to put the patient on BiPAP 11/21 and increase the IPAP if need be to get a tidal volume around 400 with backup rate of 16 Continue with antibiotics for possible UTI. Can get swallow eval later today Potassium magnesium and phosphorus are being replaced Will monitor the patient in the ICU for another 4 hours and if stable then we will downgrade the patient later today DC Fabiana prior to downgrade Please note the above document was generated using voice recognition software. It may contain grammatical, syntax or spelling errors.Any formal questions or concerns about the content, text or information contained within the body of this dictation should be directly addressed to the provider for clarification. Admission and Anticipated Discharge Date Admission Date: December 24, 2023 Subjective Patient seen and examined at bedside. No acute distress She was saturating 96-97% 2 L nasal cannula. She does desaturate to 85% on room air when she is sleeping Unfortunately she self extubated around 5 AM She was oriented to self. Agitated mood Denied any headache or chest pain Has been afebrile Review of Systems 2 Review of Systems: All systems reviewed & are unremarkable except as noted in Subjective Physical Exam 2 Physical Exam: Constitutional: No acute distress HEENT: PERRLA, EOMI Respiratory system: Decreased air entry bilaterally, no wheeze, no rhonchi, positive crackles bilateral lower lobes CVS: S1-S2 positive, no murmurs or gallops Abdomen: Soft, nontender, nondistended, positive bowel sounds x4 Extremities: +2 pulses bilaterally radialis/ dorsalis pedis, no cyanosis, no edema Neuro: Somnolent but easily arousable, oriented to self only Psych: Agitated mood G/U: Positive Jung Skin: no rashes, warm and dry Lymphatic: no cervical or axillary lymphadenopathy Results & Data Results & Data Vital Signs (Past 12 Hours) Vital Signs Temp Pulse Resp BP BP Pulse Ox FiO2 12/25/23 06:33 37.1 C 79 19 112/65 96 12/25/23 06:00 37.4 C 75 17 110/55 L 90 12/25/23 05:45 37.3 C 93 H 8 L 109/52 L 94 12/25/23 05:33 37.4 C 69 16 135/76 98 12/25/23 04:45 37.6 C H 65 16 112/71 99 12/25/23 04:36 37.7 C H 70 16 124/58 L 98 12/25/23 04:15 37.5 C 77 16 150/68 H 94 12/25/23 04:03 37.5 C 68 16 149/68 H 99 12/25/23 04:00 40 12/25/23 03:57 37.4 C 73 29 H 98 12/25/23 03:47 26 H 98 40 12/25/23 03:42 37.4 C 54 L 20 118/60 97 12/25/23 03:30 120/52 L 12/25/23 03:00 37.3 C 57 L 17 118/53 L 93 12/25/23 02:48 37.4 C 52 L 19 102/50 L 96 12/25/23 02:15 37.3 C 53 L 20 139/59 L 97 12/25/23 02:00 37.3 C 66 20 124/76 12/25/23 01:45 37.4 C 64 17 112/60 12/25/23 01:30 37.4 C 58 L 25 H 98/54 L 12/25/23 01:00 37.4 C 53 L 16 100/49 L 12/25/23 00:48 37.4 C 52 L 16 97 12/25/23 00:42 37.4 C 54 L 16 122/50 L 98 12/25/23 00:00 124/54 L 12/24/23 23:58 40 12/24/23 23:57 67 12/24/23 23:54 37.4 C 64 14 118/56 L 97 12/24/23 23:35 134/49 L 12/24/23 23:16 64 16 97 40 12/24/23 23:15 131/72 12/24/23 22:47 126/61 12/24/23 22:30 37.4 C 56 L 16 130/59 L 97 12/24/23 22:27 37.4 C 52 L 16 98 12/24/23 22:00 37.5 C 64 16 82/50 L 12/24/23 21:54 37.5 C 62 16 95 12/24/23 21:39 37.6 C H 65 16 85/49 L 96 12/24/23 21:32 77/59 L 12/24/23 21:21 37.6 C H 66 16 95 12/24/23 21:02 103/54 L 12/24/23 21:00 37.6 C H 68 16 79/54 L 95 12/24/23 20:00 40 12/24/23 20:00 37.3 C 76 17 85/47 L 93 Laboratory Results 12/25/23 04:24 12/25/23 04:24 Coding Level of Care Code 02213 SUB INP/OBS CARE 3/50MIN Diagnoses Acute on chronic respiratory failure with hypoxia and hypercapnia J96.21; J96.22 Mood disorder F39 Hyperlipidemia E78.5 Aspiration pneumonia J69.0
[2023-12-25] MEDS ORDERED: MoRPHine SULFATE 2 MG/ML CARP IV PRN (10:11)
[2023-12-25] MEDS ORDERED: HALOPERIDOL LACTATE 5 MG/ML 1 ML VIAL IV PRN (14:41)
--- NOTE | 2023-12-25 16:39 | Hospitalist Progress Note ---
Date of Service December 25, 2023 Assessment & Plan (1) Acute on chronic respiratory failure with hypoxia: Plan: Acute on chronic respiratory failure with hypoxia, chronically on 2 L acute decompensation due to aspiration pneumonia-requiring mechanical ventilation concern for aspiration pneumonia - BioFire testing negative ceftriaxone Solu-Medrol 40 mg IV every 12 hours stopped rapid turnaround makes aspiration and decompensation more likely Troponin 25.1, is likely elevated to supply/demand mismatch, with follow-up ordered (2) History of psychosis: Plan: Continue divalproex 125 mg every morning, mirtazapine 15 mg at bedtime, venlafaxine 75 mg twice a day and aripiprazole 2 mg at bedtime For chronic pain continue morphine 15 mg p.o. twice daily, follow QTc Admission and Anticipated Discharge Date Admission Date: December 24, 2023 Subjective pt self extubated doing well off vent speech eval and ok to eat she is confused and angry at times Physical Exam Physical Exam: awake and re-directable at times cardiac is regular with murmur lungs are coarse no focal deficits Results & Data Results & Data Vital Signs (Past 12 Hours) Vital Signs Temp Pulse Pulse Resp BP Pulse Ox O2 Del Method 12/25/23 12:00 97.7 F 79 18 97 Room Air 12/25/23 08:00 74 12/25/23 08:00 Room Air 12/25/23 06:33 98.8 F 79 19 112/65 96 12/25/23 06:00 99.3 F 75 17 110/55 L 90 12/25/23 05:45 99.1 F 93 H 8 L 109/52 L 94 12/25/23 05:33 99.3 F 69 16 135/76 98 12/25/23 04:45 99.7 F H 65 16 112/71 99 12/25/23 04:36 99.9 F H 70 16 124/58 L 98 Laboratory Results review cbc review chemistry PG Care Time/CCT Total # of Minutes Spent Total Time Spent with Patient: Total time spent is greater than 50% in coordination of care (as documented) at patient's floor/unit and/or counseling patient: Coding Level of Care Code 66736 SUB INP/OBS CARE 2/35MIN Diagnoses Acute on chronic respiratory failure with hypoxia J96.21 History of psychosis Z86.59
[2023-12-25] MEDS: cefTRIAXone SODIUM 2,000 MG/50 ML BAG IV SCH (18:12)
--- NOTE | 2023-12-26 07:35 | Hospitalist Progress Note ---
Date of Service December 26, 2023 Assessment & Plan (1) Acute on chronic respiratory failure with hypoxia: Plan: Acute on chronic respiratory failure with hypoxia, chronically on 2 L acute decompensation due to aspiration pneumonia-requiring mechanical ventilation concern for aspiration pneumonia - BioFire testing negative ceftriaxone Solu-Medrol 40 mg IV every 12 hours stopped rapid turnaround makes aspiration and decompensation more likely Troponin 25.1, is likely elevated to supply/demand mismatch, with follow-up ordered (2) History of psychosis: Plan: Continue divalproex 125 mg every morning, mirtazapine 15 mg at bedtime, venlafaxine 75 mg twice a day and aripiprazole 2 mg at bedtime For chronic pain continue morphine 15 mg p.o. twice daily, follow QTc Admission and Anticipated Discharge Date Admission Date: December 24, 2023 Results & Data Results & Data Vital Signs (Past 12 Hours) Vital Signs Temp Pulse Resp BP Pulse Ox O2 Del Method 12/26/23 04:03 99.0 F 81 24 163/83 H 91 12/26/23 02:09 99.0 F 87 26 H 88 L 12/26/23 00:00 98.8 F 85 25 H 139/95 94 12/26/23 00:00 89 12/25/23 20:03 98.8 F 77 24 176/81 H 93 12/25/23 20:00 Room Air PG Care Time/CCT Total # of Minutes Spent Total Time Spent with Patient: Total time spent is greater than 50% in coordination of care (as documented) at patient's floor/unit and/or counseling patient: Coding Diagnoses Acute on chronic respiratory failure with hypoxia J96.21 History of psychosis Z86.59
[2023-12-26] MEDS: ACETAMINOPHEN 325 MG TAB PO PRN (08:39)
[2023-12-26 08:41] LABS: Basophils # (auto) 0.04 K/uL (0.00-0.20); Basophils % (auto) 0.3 %; Eosinophils # (auto) 0.77 K/uL (0.00-0.50); Eosinophils % (auto) 6.2 %; Hematocrit (blood only) 37.7 % (37.0-47.0); Hemoglobin 11.7 g/dl (12.0-16.0); Immature Granulocytes # (auto) 0.04 K/uL (0.01-0.20); Immature Granulocytes % (auto) 0.3 %; Lymphocytes # (auto) 2.45 K/uL (1.20-3.40); Lymphocytes % (auto) 19.8 %; Mean Corpuscular Hemoglobin 27.1 pg (25.0-34.0); Mean Corpuscular Volume 87.3 fL (80.0-100.0); Mean Platelet Volume 10.5 fL (9.4-12.4); Monocytes # (auto) 1.23 K/uL (0.11-0.59); Monocytes % (auto) 9.9 %; Neutrophils # (auto) 7.87 K/uL (1.40-6.50); Neutrophils % (auto) 63.5 %; Platelet Count 254 K/uL (130-400); RDW Coefficient of Variation 15.9 % (11.5-14.5); RDW Standard Deviation 50.7 fL (36.4-46.3); Red Blood Count 4.32 M/uL (4.20-5.40)
[2023-12-26 08:58] LABS: Albumin Level 3.3 gm/dl (3.4-5.0); BUN Creatinine Ratio 34.6 (10-20); Calcium 8.6 mg/dl (8.6-10.3); Creatinine Clr Calc Pharmacy 82.6 ml/min; Magnesium 2.1 mg/dl (1.7-2.4); Phosphorus 3.4 mg/dl (2.5-4.9); Potassium 3.8 mmol/L (3.5-5.1)
[2023-12-26 11:51] VITALS: TEMP 99.1
[2023-12-26 11:52] VITALS: BP 157/70; RESP 26; O2SAT 99
--- NOTE | 2023-12-26 13:43 | Discharge Summary ---
Discharge Summary Date of Service December 26, 2023 Principal Dx & Hospital Course #1 = Principal Diagnosis (1) Acute on chronic respiratory failure with hypoxia: Acute on chronic respiratory failure with hypoxia, chronically on 2 L acute decompensation due to aspiration pneumonia-requiring mechanical ventilation concern for aspiration pneumonia - BioFire testing negative ceftriaxone ->will complete Augmentin, safe swallowing technique Solu-Medrol 40 mg IV every 12 hours stopped rapid turnaround makes aspiration and decompensation more likely Troponin 25.1, is likely elevated to supply/demand mismatch, with follow-up ordered (2) History of psychosis: Continue divalproex 125 mg every morning, mirtazapine 15 mg at bedtime, venlafaxine 75 mg twice a day and aripiprazole 2 mg at bedtime For chronic pain continue morphine 15 mg p.o. twice daily, follow QTc Notes For Next Care Provider continue antibiotics, watch for swalloing issues Admission HPI Per Admitting Provider The patient is an 83-year-old female with a past medical history including septic shock, hyperlipidemia, multifocal pneumonia, acute respiratory failure with hypoxia, aggressive behavior, history of psychosis, mood disorder, urinary tract infection, insomnia, chronic pain syndrome, and dementia. She presents to the emergency department with worsening respiratory status as noted above. She was initially placed on BiPAP, and then was ultimately able to be changed back to nasal cannula 4 L oxygen, with pulse ox in the mid 90s. Discharge Exam awake and cooperative lungs are diminished but not with focal loss or wheeze Discharge Plan Discharge Items Patient Disposition: Transfer Detention Fac Reason For Visit: ACUTE ON CHRONIC RESPIRATORY FAILURE,ASPIRATION Discharge Diagnosis: acute on chronic respiratory failure aspiration pneumonia Activity: Resume your previous activity Non-emergency contact: Primary Care Provider Call non-emergency contact if: your symptoms worsen Follow-up/Referrals: Jonnathan Cardozo [Primary Care Provider] - Diet: Regular Diet Comment: aspiraiton precautions Addtl Attending Provider Instructions: please attempt to encourage safe swallowing complete antibiotics Pending Studies at Discharge: No Stand-Alone Forms: My [facility] Skilled Items Patient informed of condition?: Yes DNR: No Discharge Level of Care: Other Communicable Disease: No Discharge Prognosis: Stable Lines: None Urinary Catheter: No Medications and DC Order Prescriptions: New amoxicillin-pot clavulanate 875-125 mg tablet 1 tab PO BID Qty: 10 0RF Continued venlafaxine 75 mg capsule,extended release 24hr 75 mg PO BID morphine 15 mg tablet extended release 15 mg PO BID mirtazapine 15 mg tablet 15 mg PO HS diclofenac sodium 1 % gel 1 g TOPICAL .DAY & EVENING SHIFT Rx Instructions: APPLY TO LEFT SHOULDER atorvastatin 10 mg tablet 10 mg PO HS divalproex 125 mg capsule, delayed rel sprinkle 125 mg PO DAILY aripiprazole 2 mg tablet 2 mg PO HS acetaminophen 325 mg Tablet 650 mg PO Q6 MDD 3G/24 HR PRN (Reason: Fever Or Pain) Rx Instructions: use for temp > 101 or pain 1-6 naproxen sodium 220 mg Tablet 220 mg PO Q12 PRN (Reason: L SHOULDER PAIN) Multiple Vitamin-Minerals Tablet 1 tab PO DAILY Eucerin Itch Relief 0.1 % Lotion 1 ea TOPICAL BID Rx Instructions: APPLY TO ITCHY AREAS EVERY DAY AND EVENING SHIFT diclofenac sodium 1 % gel 1 ea TOPICAL BID Rx Instructions: apply to left shoulder every day and evening shift Discharge Orders: Discharge Order (Routine); Ordered 12/26/23 Ordered By: Reginaldo Cook Admission Data Admit Date/Time: 12/24/23 02:39 Attending Provider: Reginaldo Cook Admit Provider: Jayro Brennan Primary Care Provider: Jonnathan Cardozo Other Providers: Juliane,; Jayro Brennan; Bushra Gunn Hospital Stay Data Consultations 12/24/23 02:33 ED Decision to Admit Stat 12/24/23 06:53 Consult Orthopaedic Doctor Routine Diagnostic Imagining Performed 12/24/23 05:39 CT angio chest PE protocol Stat Pending Results Patient Have Any Pending Studies at Discharge: No Discharge Instructions Given to Patient (Per Discharging Provider) please attempt to encourage safe swallowing complete antibiotics Total Time Total Time Spent Total Time Spent (In Minutes): It required greater than 30 minutes to prepare this patient for discharge. Coding Level of Care Code 09778 INP/OBS DISCH >30 MIN Diagnoses Acute on chronic respiratory failure with hypoxia J96.21 History of psychosis Z86.59
[2023-12-26 13:47] VITALS: PULSE 89
[2023-12-27 08:24] LABS: IMP Carbapenemase NOT DETECTED (NotDetected); KPC Carbapenemase NOT DETECTED (NotDetected); NDM Carbapenemase NOT DETECTED (NotDetected); OXA48 Carbapenemase NOT DETECTED (NotDetected); VIM Carbapenemase NOT DETECTED (NotDetected)
== END 2023-12-26 15:45 | DRG 208 ==
LOC: ED 23:50 → 2S 12-24 02:39 → SUATTDRO 12-24 02:39 → 1E 12-24 05:47
DX: Z99.81 Dependence on supplemental oxygen; F03.93 Unspecified dementia, unspecified severity, with mood disturbance; J96.22 Acute and chronic respiratory failure with hypercapnia; F39 Unspecified mood [affective] disorder; Z88.8 Allergy status to other drugs, medicaments and biological substances; Z11.52 Encounter for screening for COVID-19; J69.0 Pneumonitis due to inhalation of food and vomit; I24.89 Other forms of acute ischemic heart disease; Z86.19 Personal history of other infectious and parasitic diseases; J96.21 Acute and chronic respiratory failure with hypoxia; B96.89 Other specified bacterial agents as the cause of diseases classified elsewhere; F03.918 Unspecified dementia, unspecified severity, with other behavioral disturbance; Z79.899 Other long term (current) drug therapy; E78.5 Hyperlipidemia, unspecified